=== PATIENT | male | born 1955 | race Caucasian/White ===

== ENCOUNTER 2022-01-27 14:19 | Observation (INO) ==
[2022-01-27] MEDS ORDERED: ONDANSETRON INJ 2 MG/ML 2 ML VIAL IV STA (15:42)
[2022-01-27] MEDS ORDERED: HYDROmorphone INJ 0.5 MG/0.5 ML SYR IV STA (15:42)
--- NOTE | 2022-01-27 15:46 | Emergency Department Note ---
History of Present Illness General Chief complaint: Back Injury/Pain Stated complaint: BACK PAIN Time Seen by Provider: 01/27/22 15:29 History of Present Illness Maximum Pain Intensity: 10 This is a 66-year-old male that presents to the emergency department via private vehicle with complaints of "low back pain". Patient notes progressively worsening low back pain to the point where now he is not able to manage it at home. He notes that he follows with pain management and is prescribed hydrocodone. He last had this medication just prior to arrival. He notes that even simple tasks such as showering or going to the grocery store has been quite difficult for him secondary to low back pain. Patient does note some sensation of leg weakness but this is not new. He points to the low back as a location of pain that radiates into the bilateral hips. He also notes it radiates into the lower abdomen. Patient denies any fevers, chills, nausea or vomiting. Patient does note that he currently is on Plavix. He denies any recent trauma or injury. Patient notes pain is worse with certain movements such as twisting or bending. He also notes that he had some bright red blood per rectum as of recent and also dark tarry stools a few days ago that were foul-smelling. He notes hemorrhoids. Home Medications Medication Instructions Recorded Confirmed Type clopidogrel 75 mg tablet (Plavix) 75 mg PO DAILY 10/28/17 01/27/22 History lisinopril 40 mg tablet 40 mg PO DAILY 10/28/17 01/27/22 History sennosides 8.6 mg tablet (senna) 8.6 mg PO BID PRN Constipation 10/28/17 01/27/22 History tamsulosin 0.4 mg capsule (Flomax) 0.4 mg PO DAILY 05/04/18 01/27/22 History clonazepam 1 mg tablet (Klonopin) 1 mg PO TID 11/08/18 01/27/22 History duloxetine 60 mg capsule,delayed 60 mg PO DAILY 06/21/19 01/27/22 History release (Cymbalta) trazodone 150 mg tablet 75 mg PO HS 06/21/19 01/27/22 History rosuvastatin 20 mg tablet (Crestor) 20 mg PO HS 12/01/19 01/27/22 History amlodipine 10 mg tablet 10 mg PO DAILY 01/27/22 01/27/22 History carvedilol 25 mg tablet 25 mg PO BID 01/27/22 01/27/22 History gabapentin 600 mg tablet 900 mg PO BID 01/27/22 01/27/22 History hydrocodone 5 mg-acetaminophen 325 1 tab PO TID 01/27/22 01/27/22 History mg tablet pantoprazole 40 mg tablet,delayed 40 mg PO DAILY 01/27/22 01/27/22 History release topiramate 25 mg tablet 25 mg PO TID 01/27/22 01/27/22 History Allergies Allergy/AdvReac Type Severity Reaction Status Date / Time aspirin AdvReac Mild UPSET Verified 01/03/22 13:20 STOMACH Past Med/Surg History Medical History (Updated 01/28/22 @ 07:54 by Shahzad Rojas PA-C) CAD (coronary artery disease) S/p previous stenting, details unknown Cervical disc disorder Cervical post-laminectomy syndrome Cervical radiculopathy Chronic hip pain after total replacement of right hip joint Dyslipidemia Dystonic movements HTN (hypertension) Lumbar radiculopathy Opioid dependence Osteoarthritis Painful total knee replacement (08/22/13) Rib fracture Sleep apnea Surgical History History of back surgery History of total right hip arthroplasty History of total right knee replacement (TKR) Hx of fusion of cervical spine Family History Mother Diabetes Social History Smoking Status: Never smoker Second Hand Exposure: No; Do You Dip or Chew Tobacco: Yes; Tobacco Cessation Education Requested by Patient: No Hx Alcohol Use: No Hx Substance Use: Yes Prescribed Medications: Marijuana Last Used Substance: Hours (ago) Substance Use Type Other:: Patient states he has a medical marijuana card Preferred Language: Colombian Communication Ability: Effective Visual Impairment: No Limitations Hearing Ability: Normal Mid Level Provider Required: No Beliefs That Will Affect Care: None marital status: Single Current Living Situation: Family Current Living Situation Comment: Lives with brother current occupational status: retired Other Information That Helps Us Care for You: No Feels Safe at Home: Yes Safety Concerns: Feels Safe At This Time Assistive Devices: Glasses Assistive Devices Comment: glasses at home at this time Review of Systems A total of 10 systems reviewed and were otherwise negative Physical Exam Vital Signs Vital Signs - 24 hr 01/27/22 14:42 01/27/22 15:44 Temperature 36.8 C Temperature Source Temporal Artery Scan Pulse Rate 82 Pulse Rhythm Regular Respiratory Rate 20 Respiratory Effort / Characteristics Non-Labored Spontaneous Respiratory Depth Normal Blood Pressure 156/85 H Blood Pressure Mean 108 Pulse Oximetry 97 98 Oxygen Delivery Method Room Air Room Air Sepsis Recent Fever Within 48 Hours No Sepsis New/Unexplained Change in Mental Status No Sepsis Action Taken by Nursing No Action Required VITAL SIGNS - Vital signs and nursing notes were reviewed. Stable and afebrile. GENERAL -66-year-old male appearing his stated age who is in no acute distress. Communicates well with provider and answers questions appropriately. SKIN - Without rashes. No meningeal or petechial rash. HEAD - NC/AT. EYES - PERRL with EOMI bilaterally. Sclera anicteric. EARS - No deformities of external structures noted on gross examination bilaterally. NOSE - Midline and without cyanosis. No epistaxis or purulent drainage noted. MOUTH/OROPHARYNX - Without perioral cyanosis. NECK - Neck with FROM. No nuchal rigidity. LUNGS - Chest wall symmetric without accessory muscle use, intercostals retractions, or central cyanosis. Normal vesicular breath sounds CTA B/L. No wheezes, rales, or rhonchi appreciated. CARDIAC - RRR with S1/S2. No murmur, rubs, or gallops appreciated. ABDOMEN - Abdominal contour normal without pulsations or visible masses. BS normoactive all four quadrants. Right lower quadrant/flank tenderness to palpation. No palpable masses, hepatosplenomegaly, or ascites noted. L-SPINEno reproducible tenderness over the L-spine. EXTREMITIES - No clubbing or peripheral cyanosis. No pretibial edema present. +5/5 strength noted in UE/LE bilaterally. NEUROLOGIC - Cranial nerves II through XII grossly intact. PSYCH - A&Ox3 and cooperates fully with examiner. Pt is very pleasant and interacts well with examiner. RECTAL: Consent was obtained. Male hospital medicine director at bedside. External hemorrhoids noted. No bleeding. No bright red blood. No dark tarry stools. Internal portion of examination normal. Hemoccult testing negative. Course Administered Medications Acetaminophen (Acetaminophen 500 Mg Tab) 1,000 mg PO Q8H MARIO Stop: 02/26/22 22:13 Last Admin: 01/28/22 06:37 Dose: 1,000 mg Documented By: Admin: 01/27/22 23:08 Dose: 1,000 mg Documented By: JEFRY Carvedilol (Carvedilol 25 Mg Tab) 25 mg PO BID MARIO Stop: 02/26/22 22:13 Last Admin: 01/27/22 23:07 Dose: 25 mg Documented By: JEFRY Clonazepam (Clonazepam 1 Mg Tab) 1 mg PO TID MARIO Stop: 02/26/22 22:13 Last Admin: 01/27/22 23:10 Dose: 1 mg Documented By: JEFRY Gabapentin (Gabapentin 300 Mg Cap) 900 mg PO BID MARIO Stop: 02/26/22 22:13 Last Admin: 01/27/22 23:08 Dose: 900 mg Documented By: JEFRY Pantoprazole Sodium 40 mg/ (Syringe) 10 mls @ 5 mls/min IV BID MARIO Stop: 02/26/22 22:13 Last Admin: 01/27/22 23:08 Dose: 5 mls/min Documented By: JEFRY Morphine Sulfate (Morphine Sulfate 4 Mg/Ml 1 Ml Carp\\Vial) 4 mg IV Q6H PRN PRN Reason: severe pain Stop: 02/10/22 22:13 Last Admin: 01/28/22 00:08 Dose: 4 mg Documented By: JEFRY Rosuvastatin Calcium (Rosuvastatin Calcium 20 Mg Tab) 20 mg PO HS MARIO Stop: 02/26/22 22:13 Last Admin: 01/27/22 23:07 Dose: 20 mg Documented By: JEFRY Topiramate (Topiramate 25 Mg Tab) 25 mg PO TID MARIO Stop: 02/26/22 22:13 Last Admin: 01/27/22 23:08 Dose: 25 mg Documented By: JEFRY Trazodone HCl (Trazodone Hcl 50 Mg Tab) 75 mg PO HS MARIO Stop: 02/26/22 22:13 Last Admin: 01/27/22 23:09 Dose: 75 mg Documented By: JEFRY Discontinued Medications Acetaminophen (Acetaminophen 325 Mg Tab) 650 mg PO NOW STA Stop: 01/27/22 17:52 Last Admin: 01/27/22 18:17 Dose: 650 mg Documented By: Gadobutrol (Gadobutrol 65ml Vial) 9 ml IV ONCE ONE Stop: 01/27/22 23:54 Last Admin: 01/27/22 23:53 Dose: 9 ml Documented By: CAMILA Hydromorphone HCl (Hydromorphone Inj 0.5 Mg/0.5 Ml Syr) 0.5 mg IV NOW STA Stop: 01/27/22 15:43 Last Admin: 01/27/22 16:14 Dose: 0.5 mg Documented By: ENEIDA Ioversol (Optiray 350 100ml) 78 ml IV ONCE ONE Stop: 01/27/22 17:21 Last Admin: 01/27/22 18:29 Dose: Not Given Documented By: ENEIDA Lidocaine (Lidocaine 5% 1 Patch) 1 patch TD NOW STA Stop: 01/27/22 17:52 Last Admin: 01/27/22 18:17 Dose: 1 patch Documented By: ENEIDA Miscellaneous (Remove Lidoderm Patch) 1 each N/A DAILY@2100 MARIO Stop: 02/26/22 20:59 Last Admin: 01/28/22 07:02 Dose: Not Given Documented By: MELODIE Ondansetron HCl (Ondansetron Inj 2 Mg/Ml 2 Ml Vial) 4 mg IV NOW STA Stop: 01/27/22 15:43 Last Admin: 01/27/22 16:14 Dose: 4 mg Documented By: ENEIDA Medical Decision Making Laboratory Data Result diagrams: 01/28/22 05:57 01/28/22 05:57 Lab Results 01/27/22 01/27/22 01/27/22 Range/Units 16:13 16:13 16:13 WBC 7.04 (4.8-10.8) K/ul RBC 4.37 L (4.63-6.08) M/uL Hgb 14.7 (14.0-18.0) g/dl Hct 40.2 (40.1-51.0) % MCV 92.0 (80.0-100.0) fL MCH 33.6 (25.0-34.0) pg MCHC 36.6 H (32.0-36.0) g/dL RDW Std Deviation 42.8 (36.4-46.3) fL RDW Coeff of Hanh 12.9 (11.5-14.5) % Plt Count 142 (130-400) K/uL MPV 9.1 L (9.4-12.4) fL Immature Gran % (Auto) 3.8 % Neut % (Auto) 65.4 % Lymph % (Auto) 21.2 % [place] % (Auto) 7.1 % Eos % (Auto) 1.8 % Baso % (Auto) 0.7 % Neut # (Auto) 4.60 (1.4-6.5) K/uL Lymph # (Auto) 1.49 (1.2-3.4) K/uL [place] # (Auto) 0.50 (0.24-0.82) K/uL Eos # (Auto) 0.13 (0-0.50) K/uL Baso # (Auto) 0.05 (0-0.2) K/uL Immature Gran # (Auto) 0.27 H (0.00-0.02) K/uL PT 10.3 (9.0-12.0) Seconds INR 1.0 (0.9-1.1) APTT 26.8 (21.0-31.0) Seconds PTT Ratio 1.0 Sodium 140 (136-145) mmol/L Potassium 3.8 (3.5-5.1) mmol/L Chloride 109 H (98-107) mmol/L Carbon Dioxide 26 (21-32) mmol/L Anion Gap 5 (3-11) BUN 13 (6-23) mg/dl Creatinine 0.89 (0.6-1.4) mg/dl Est Cr Clr Drug Dosing Not Reportable Est GFR ( Amer) 104.0 ml/min Est GFR (Non-Af Amer) 89.7 ml/min BUN/Creatinine Ratio 14.6 (10-20) Glucose 113 H (70-99(Fasting)) mg/dl Calcium 8.5 (8.5-10.1) mg/dl Total Bilirubin 0.6 (0.2-1.0) mg/dl AST 19 (13-39) U/L ALT 18 (7-52) U/L Alkaline Phosphatase 59 (34-104) U/L Total Protein 6.6 (6.0-8.3) gm/dl Albumin 4.2 (3.4-5.0) gm/dl Globulin 2.4 L (2.5-4.0) gm/dl Albumin/Globulin Ratio 1.8 (0.9-2) Lipase 23 (11-82) U/L Imaging Data Radiologist's Impression: Abdomen/Pelvis CT 01/27/22 15:42 CT lumbar spine w con, CT abd pelvis IV con only HISTORY: 66 years-old Male low back pain, into hips. Rectal bleeding acute abdominal trauma back pain with rectal bleeding COMPARISON: Lumbar spine radiographs 11/27/2021 TECHNIQUE: Multiple axial CT images of the abdomen, pelvis and lumbar spine were obtained following the intravenous administration of 78 mL Optiray 350. A dose lowering technique was used consistent with the principals of KEVIN. FINDINGS: CT LUMBAR SPINE: L5 laminectomy. Posterior interbody birgit and screw fusion with discectomy at L5- S1. The hardware appears intact. Moderate to advanced multilevel anterior end plate predominant spondylitic spurring with mostly mild multilevel vertebral disc space narrowing and moderate facet arthrosis. No acute fracture or subluxation identified. No paravertebral edema identified. Multilevel posterior annular disc bulging. There is at least moderate central canal stenosis at L3-L4 and L4-L5. CT ABDOMEN/PELVIS: The lung bases are generally clear. Coronary artery calcifications. No pneumatosis or pneumoperitoneum. Unremarkable spleen, mildly atrophic pancreas and adrenal glands which demonstrate mild fatty replacement. The gallbladder is within normal limits. Hepatic steatosis. Patency of the hepatic and portal veins. There is mild nonspecific bilateral perinephric stranding. Mild cortical thinning of the kidneys. No hydronephrosis. Prostamegaly. Small fat filled inguinal hernias. Mild urinary bladder wall thickening with partial distention. Atherosclerosis of the aorta without aneurysm. No lymphadenopathy identified. Small duodenal diverticulum. No bowel obstruction or bowel wall thickening. Colonic diverticulosis without acute diverticulitis. Normal appendix. Unrema rkable soft tissues. Right hip arthroplasty. Fusion hardware at L5-S1. Healed chronic anterior rib fractures. No acute fracture identified. IMPRESSION: 1. No acute intra-abdominal or intrapelvic abnormality. 2. No bowel obstruction or bowel wall thickening. Normal appendix. 3. Colonic diverticulosis. 4. No acute fracture identified. 5. Postoperative and degenerative changes of the lumbar spine as above. ACT 112: Negative or not required by law. The above report was generated using voice recognition software. It may contain grammatical, syntax or spelling errors. Electronically signed by: Reggie Talavera M.D. 01/27/2022 5:[address] 01/27/22 15:42 CT lumbar spine w con, CT abd pelvis IV con only HISTORY: 66 years-old Male low back pain, into hips. Rectal bleeding acute abdominal trauma back pain with rectal bleeding COMPARISON: Lumbar spine radiographs 11/27/2021 TECHNIQUE: Multiple axial CT images of the abdomen, pelvis and lumbar spine were obtained following the intravenous administration of 78 mL Optiray 350. A dose lowering technique was used consistent with the principals of KEVIN. FINDINGS: CT LUMBAR SPINE: L5 laminectomy. Posterior interbody birgit and screw fusion with discectomy at L5- S1. The hardware appears intact. Moderate to advanced multilevel anterior endplate predominant spondylitic spurring with mostly mild multilevel vertebral disc space narrowing and moderate facet arthrosis. No acute fracture or subluxation identified. No paravertebral edema identified. Multilevel posterior annular disc bulging. There is at least moderate central canal stenosis at L3-L4 and L4-L5. CT ABDOMEN/PELVIS: The lung bases are generally clear. Coronary artery calcifications. No pneumatosis or pneumoperitoneum. Unremarkable spleen, mildly atrophic pancreas and adrenal glands which demonstrate mild fatty replacement. The gallbladder is within normal limits. Hepatic steatosis. Patency of the hepatic and portal veins. There is mild nonspecific bilateral perinephric stranding. Mild cortical thinni ng of the kidneys. No hydronephrosis. Prostamegaly. Small fat filled inguinal hernias. Mild urinary bladder wall thickening with partial distention. Atherosclerosis of the aorta without aneurysm. No lymphadenopathy identified. Small duodenal diverticulum. No bowel obstruction or bowel wall thickening. Colonic diverticulosis without acute diverticulitis. Normal appendix. U nremarkable soft tissues. Right hip arthroplasty. Fusion hardware at L5-S1. Healed chronic anterior rib fractures. No acute fracture identified. IMPRESSION: 1. No acute intra-abdominal or intrapelvic abnormality. 2. No bowel obstruction or bowel wall thickening. Normal appendix. 3. Colonic diverticulosis. 4. No acute fracture identified. 5. Postoperative and degenerative changes of the lumbar spine as above. ACT 112: Negative or not required by law. The above report was generated using voice recognition software. It may contain grammatical, syntax or spelling errors. Electronically signed by: Reggie Talavera M.D. 01/27/2022 5:38 PM MDM Narrative Patient was seen and evaluated as above in room D07. Review was performed of nursing notes and vital signs. I did review pertinent previous visits and patient history. After obtaining a thorough history and physical examination the above work up was performed. Patient presents to us today with worsening low back pain. He clinically appears well but is very slow to move in any direction that involves moving his back/bending/twisting noting discomfort. His vital signs are stable. Patient also notes right red blood per rectum over the past day or so with black tarry stools a few days ago that were foul-smelling. Options of care were discussed with the patient. IV access was established. Labs were drawn. Labs reveal no leukocytosis or concerning anemia. A rectal examination was performed after obtaining consent as the patient is on Plavix and notes bright red blood per rectum. Some external hemorrhoids were noted that were nonbleeding. No bright red blood. No evidence of blood by Hemoccult testing. His metabolic panel reveals no emergent process. A CT scan was obtained of the abdomen pelvis noting his low back pain that radiates into the abdomen with associated low back pain. I do not believe that an MRI of the L- spine at this time would be of benefit from an emergent standpoint. CT imaging results as above. This was essentially negative from an emergent standpoint however with the patient having ongoing worsening back pain to the point where performing ADLs is quite difficult despite at home therapy with medication I do believe that further evaluation and management in the inpatient setting is warranted. Case discussed with the hospitalist service. Please refer to further documentation regarding his stay. Patient happy with plan of care. GCS: 15 In the evaluation and treatment of this patient the following differential diagnoses were entertained: AAA, lumbar radiculopathy, dissection, GI bleeding, UTI, pyelonephritis, bowel obstruction, infectious etiology, among others Impression & Plan Intractable back pain Discharge Plan Visit Data Chief Complaint: Back Injury/Pain Stated Complaint: BACK PAIN ED Provider: Brian Vazquez ED Midlevel Provider: Shahzad Rojas Discharge Problem: Intractable back pain Patient Disposition: Admitted As Inpatient Condition: Good Discharge Instructions Interventions: ED Discharge Assessment Last Done: 01/27/22 21:40
[2022-01-27 16:31] LABS: Basophils # (auto) 0.05 K/uL (0-0.2); Basophils % (auto) 0.7 %; Eosinophils # (auto) 0.13 K/uL (0-0.50); Eosinophils % (auto) 1.8 %; Hematocrit (blood only) 40.2 % (40.1-51.0); Hemoglobin 14.7 g/dl (14.0-18.0); Immature Granulocytes # (auto) 0.27 K/uL (0.00-0.02); Immature Granulocytes % (auto) 3.8 %; Lymphocytes # (auto) 1.49 K/uL (1.2-3.4); Lymphocytes % (auto) 21.2 %; Mean Corpuscular Hemoglobin 33.6 pg (25.0-34.0); Mean Corpuscular Hgb Conc 36.6 g/dL (32.0-36.0); Mean Platelet Volume 9.1 fL (9.4-12.4); Monocytes % (auto) 7.1 %; Neutrophils % (auto) 65.4 %; Platelet Count 142 K/uL (130-400); RDW Coefficient of Variation 12.9 % (11.5-14.5); RDW Standard Deviation 42.8 fL (36.4-46.3); Red Blood Count 4.37 M/uL (4.63-6.08); White Blood Count 7.04 K/ul (4.8-10.8)
[2022-01-27 16:45] LABS: Partial Thromboplastin Time 26.8 Seconds (21.0-31.0); Prothrombin Time 10.3 Seconds (9.0-12.0)
[2022-01-27 16:55] LABS: Alanine Aminotransferase 18 U/L (7-52); Albumin Globulin Ratio 1.8 (0.9-2); Albumin Level 4.2 gm/dl (3.4-5.0); Alkaline Phosphatase 59 U/L (34-104); Anion Gap 5 (3-11); Aspartate Aminotransferase 19 U/L (13-39); BUN Creatinine Ratio 14.6 (10-20); Bilirubin,Total 0.6 mg/dl (0.2-1.0); Blood Urea Nitrogen 13 mg/dl (6-23); Calcium 8.5 mg/dl (8.5-10.1); Carbon Dioxide 26 mmol/L (21-32); Chloride 109 mmol/L (98-107); Est GFR (Non-African American) 89.7 ml/min; Globulin 2.4 gm/dl (2.5-4.0); Glucose 113 mg/dl (70-99(Fasting)); Lipase 23 U/L (11-82); Potassium 3.8 mmol/L (3.5-5.1); Sodium 140 mmol/L (136-145); Total Protein 6.6 gm/dl (6.0-8.3)
[2022-01-27] MEDS ORDERED: OPTIRAY 350 100ml IV ONE (17:20)
--- NOTE | 2022-01-27 17:40 | CT Scan Report ---
CT lumbar spine w con, CT abd pelvis IV con only HISTORY: 66 years-old Male low back pain, into hips. Rectal bleeding acute abdominal trauma back vidal n with rectal bleeding COMPARISON: Lumbar spine radiographs 11/27/2021 TECHNIQUE: Multiple axial CT images of the abdomen, pelvis and lumbar spine were obtained following t he intravenous administration of 78 mL Optiray 350. A dose lowering technique was used consistent wit h the principals amna BROWN. FINDINGS: CT LUMBAR SPINE: L5 laminectomy. Posterior interbody birgit and screw fusion with discectomy at L5-S1. The hardware appea rs intact. Moderate to advanced multilevel anterior endplate predominant spondylitic spurring with mo stly mild multilevel vertebral disc space narrowing and moderate facet arthrosis. No acute fracture o r subluxation identified. No paravertebral edema identified. Multilevel posterior annular disc bulgin g. There is at least moderate central canal stenosis at L3-L4 and L4-L5. CT ABDOMEN/PELVIS: The lung bases are generally clear. Coronary artery calcifications. No pneumatosis or pneumoperitoneu m. Unremarkable spleen, mildly atrophic pancreas and adrenal glands which demonstrate mild fatty repl acement. The gallbladder is within normal limits. Hepatic steatosis. Patency of the hepatic and [place] l veins. There is mild nonspecific bilateral perinephric stranding. Mild cortical thinning of the kidneys. No hydronephrosis. Prostamegaly. Small fat filled inguinal hernias. Mild urinary bladder wall thickening with partial distention. Atherosclerosis of the aorta without aneurysm. No lymphadenopathy identifie d. Small duodenal diverticulum. No bowel obstruction or bowel wall thickening. Colonic diverticulosis wi thout acute diverticulitis. Normal appendix. Unremarkable soft tissues. Right hip arthroplasty. Fusio n hardware at L5-S1. Healed chronic anterior rib fractures. No acute fracture identified. IMPRESSION: 1. No acute intra-abdominal or intrapelvic abnormality. 2. No bowel obstruction or bowel wall thickening. Normal appendix. 3. Colonic diverticulosis. 4. No acute fracture identified. 5. Postoperative and degenerative changes of the lumbar spine as above. ACT 112: Negative or not required by law. The above report was generated using voice recognition software. It may contain grammatical, syntax o r spelling errors. Electronically signed by: Reggie Talavera M.D. 01/27/2022 5:38 PM
[2022-01-27] MEDS ORDERED: LIDOCAINE 5% 1 PATCH TD STA (17:51)
[2022-01-27] MEDS ORDERED: ACETAMINOPHEN 325 MG TAB PO STA (17:51)
--- NOTE | 2022-01-27 21:05 | History & Physical Report ---
Date of Service January 27, 2022 Assessment & Plan (1) Intractable back pain: Plan: Admit to [facility] Patient presenting from home with reports of worsening back pain over the past 3 weeks. Patient with history of prior neck and back surgeries with residual chronic pain syndrome. Patient follows closely with the pain clinic. In the ED, CT lumbar spine shows L5 laminectomy. Posterior interbody birgit and screw fusion with discectomy at L5-S1. The hardware appears intact. Moderate to advanced multilevel anterior endplate predominant spondylitic spurring with mostly mild multilevel vertebral disc space narrowing and moderate facet arthrosis. No acute fracture or subluxation identified. No paravertebral edema identified. Multilevel posterior annular disc bulging. There is at least moderate central canal stenosis at L3-L4 and L4-L5. Pain control with scheduled Tylenol, Lidoderm patch, as needed oxycodone and morphine for breakthrough pain. Continue home dose gabapentin. Lumbar spine MRI Spine Ortho consult Pain management consult (2) GI bleeding: Plan: Patient reports intermittent episodes of black stools over the past 3 months. 3 days ago, patient reports passing dark red blood with clots. No further episodes of bleeding since. Patient is on clopidogrel for history of CAD. Hgb stable 14.7 EGD in 2017 unremarkable, last colonoscopy in 2018 diverticulosis in the sigmoid colon. Patient due for repeat colonoscopy in 2022. Due to reports of black stools, will start IV PPI BID Hold clopidogrel GI consult (3) CAD (coronary artery disease): Plan: Remote history of prior stenting, details unknown Holding clopidogrel due to possible GI bleeding, continue statin and beta- shamar (4) HTN (hypertension): Plan: BP controlled, continue amlodipine, carvedilol DVT prophylaxis SCDs due to possible GI bleeding History of Present Illness Chief Complaint: Back pain Primary Care Provider: Noy Gaxiola MD 66-year-old male with PMH HLD, CAD s/p previous stenting (details unknown), sleep apnea not on CPAP, HTN, s/p previous back and neck surgeries with chronic back pain followed by the pain clinic, and other problems listed below who presents to the ED for evaluation of intractable back pain. Patient reports increasing lower back pain over the past 3 weeks. Patient reports he is followed by the pain clinic and takes hydrocodone/acetaminophen. Patient reports that pain is typically controlled with the hydrocodone however recently he has not been able to get any relief. Patient reports chronic lower extremity weakness which is unchanged from baseline. Patient denies any bowel or bladder dysfunction. Patient incidentally reports episodes of black stools over the past few months. 3 days ago, patient reports passing dark red blood with clots. No further bleeding since. Patient denies chest pain and shortness of breath. No lightheadedness, dizziness, diaphoresis, syncopal events. In the ED, CT lumbar spine shows L5 laminectomy. Posterior interbody ibrgit and screw fusion with discectomy at L5-S1. The hardware appears intact. Moderate to advanced multilevel anterior endplate predominant spondylitic spurring with mostly mild multilevel vertebral disc space narrowing and moderate facet arthrosis. No acute fracture or subluxation identified. No paravertebral edema identified. Multilevel posterior annular disc bulging. There is at least moderate central canal stenosis at L3-L4 and L4-L5. CT ABD/pelvis unremarkable for acute findings. Labs are unremarkable. Patient was given p.o. Tylenol, IV hydromorphone, Lidoderm patch, IV Zofran. Allergies Allergy/AdvReac Type Severity Reaction Status Date / Time aspirin AdvReac Mild UPSET Verified 01/03/22 13:20 STOMACH Home Medications Medication Instructions Recorded Confirmed Type clopidogrel 75 mg tablet (Plavix) 75 mg PO DAILY 10/28/17 01/27/22 History lisinopril 40 mg tablet 40 mg PO DAILY 10/28/17 01/27/22 History sennosides 8.6 mg tablet (senna) 8.6 mg PO BID PRN Constipation 10/28/17 01/27/22 History tamsulosin 0.4 mg capsule (Flomax) 0.4 mg PO DAILY 05/04/18 01/27/22 History clonazepam 1 mg tablet (Klonopin) 1 mg PO TID 11/08/18 01/27/22 History duloxetine 60 mg capsule,delayed 60 mg PO DAILY 06/21/19 01/27/22 History release (Cymbalta) trazodone 150 mg tablet 75 mg PO HS 06/21/19 01/27/22 History rosuvastatin 20 mg tablet (Crestor) 20 mg PO HS 12/01/19 01/27/22 History amlodipine 10 mg tablet 10 mg PO DAILY 01/27/22 01/27/22 History carvedilol 25 mg tablet 25 mg PO BID 01/27/22 01/27/22 History gabapentin 600 mg tablet 900 mg PO BID 01/27/22 01/27/22 History hydrocodone 5 mg-acetaminophen 325 1 tab PO TID 01/27/22 01/27/22 History mg tablet pantoprazole 40 mg tablet,delayed 40 mg PO DAILY 01/27/22 01/27/22 History release topiramate 25 mg tablet 25 mg PO TID 01/27/22 01/27/22 History Past Med/Surg History Medical History (Updated 01/27/22 @ 21:07 by JULY Marrero) CAD (coronary artery disease) S/p previous stenting, details unknown Cervical disc disorder Cervical post-laminectomy syndrome Cervical radiculopathy Chronic hip pain after total replacement of right hip joint Dyslipidemia Dystonic movements HTN (hypertension) Lumbar radiculopathy Opioid dependence Osteoarthritis Painful total knee replacement (08/22/13) Rib fracture Sleep apnea Surgical History History of back surgery History of total right hip arthroplasty History of total right knee replacement (TKR) Hx of fusion of cervical spine Family History Mother Diabetes Social History Smoking Status: Never smoker Hx Alcohol Use: Yes Alcohol type: hard liquor Hx Substance Use: Yes Prescribed Medications: Marijuana Preferred Language: Wolof Visual Impairment: No Limitations Hearing Ability: Normal marital status: Single Current Living Situation: Family Current Living Situation Comment: brother lives with him current occupational status: retired Feels Safe at Home: Yes Review of Systems Review of Systems: ROS per HPI, all other systems reviewed and negative Physical Exam Constitutional: WD/WN, vitals as above Eyes: PERRL, conjunctivae normal, anicteric sclerae ENMT: external ear and nose normal, oropharynx normal Respiratory: normal respiratory effort, lungs clear to auscultation Cardiovascular: Rate/Rhythm: regular rate and regular rhythm Vessels: normal peripheral pulses Extremities: no edema Gastrointestinal (Abdomen): normal bowel sounds, soft, nontender, no hepatosplenomegaly Musculoskeletal: Pedal pushes and pulls strong bilaterally, patient reports increased back pain with lifting of right leg Skin: no rashes, warm and dry Neurologic: PERRL, EOMI, accommodation nl, no face palsy, no dysarthria Psychiatric: A+Ox3, euthymic affect Results & Data Results & Data ([facility]) Vital Signs (Past 12 Hours) Vital Signs Temp Pulse Pulse Resp BP BP Pulse Ox 01/27/22 20:00 66 16 146/85 H 95 01/27/22 19:40 68 18 146/85 H 01/27/22 15:44 98 01/27/22 14:42 36.8 C 82 20 156/85 H 97 O2 Del Method 01/27/22 20:00 Room Air 01/27/22 19:40 01/27/22 15:44 Room Air 01/27/22 14:42 Room Air Laboratory Results Short CBC 01/27/22 Range/Units 16:13 WBC 7.04 (4.8-10.8) K/ul Hgb 14.7 (14.0-18.0) g/dl Hct 40.2 (40.1-51.0) % Plt Count 142 (130-400) K/uL BMP 01/27/22 16:13 Sodium 140 Potassium 3.8 Chloride 109 H Carbon Dioxide 26 BUN 13 Creatinine 0.89 Glucose 113 H Calcium 8.5 Liver Function 01/27/22 Range/Units 16:13 Total Bilirubin 0.6 (0.2-1.0) mg/dl AST 19 (13-39) U/L ALT 18 (7-52) U/L Alkaline Phosphatase 59 (34-104) U/L Albumin 4.2 (3.4-5.0) gm/dl Diagnostic Findings Abdomen/Pelvis CT 01/27/22 15:42 CT lumbar spine w con, CT abd pelvis IV con only HISTORY: 66 years-old Male low back pain, into hips. Rectal bleeding acute abdominal trauma back pain with rectal bleeding COMPARISON: Lumbar spine radiographs 11/27/2021 TECHNIQUE: Multiple axial CT images of the abdomen, pelvis and lumbar spine were obtained following the intravenous administration of 78 mL Optiray 350. A dose lowering technique was used consistent with the principals of ALARA. FINDINGS: CT LUMBAR SPINE: L5 laminectomy. Posterior interbody birgit and screw fusion with discectomy at L5- S1. The hardware appears intact. Moderate to advanced multilevel anterior endplate predominant spondylitic spurring with mostly mild multilevel vertebral disc space narrowing and moderate facet arthrosis. No acute fracture or subluxation identified. No paravertebral edema identified. Multilevel posterior annular disc bulging. There is at least moderate central canal stenosis at L3-L4 and L4-L5. CT ABDOMEN/PELVIS: The lung bases are generally clear. Coronary artery calcifications. No pneumatosis or pneumoperitoneum. Unremarkable spleen, mildly atrophic pancreas and adrenal glands which demonstrate mild fatty replacement. The gallbladder is within normal limits. Hepatic steatosis. Patency of the hepatic and portal veins. There is mild nonspecific bilateral perinephric stranding. Mild cortical thinning of the kidneys. No hydronephrosis. Prostamegaly. Small fat filled inguinal hernias. Mild urinary bladder wall thickening with partial distention. Atherosclerosis of the aorta without aneurysm. No lymphadenopathy identified. Small duodenal diverticulum. No bowel obstruction or bowel wall thickening. Colonic diverticulosis without acute diverticulitis. Normal appendix. Unremarkable soft tissues. Right hip arthroplasty. Fusion hardware at L5-S1. Healed chronic anterior rib fractures. No acute fracture identified. IMPRESSION: 1. No acute intra-abdominal or intrapelvic abnormality. 2. No bowel obstruction or bowel wall thickening. Normal appendix. 3. Colonic diverticulosis. 4. No acute fracture identified. 5. Postoperative and degenerative changes of the lumbar spine as above. ACT 112: Negative or not required by law. The above report was generated using voice recognition software. It may contain grammatical, syntax or spelling errors. Electronically signed by: Reggie Talavera M.D. 01/27/2022 5:[address] 01/27/22 15:42 CT lumbar spine w con, CT abd pelvis IV con only HISTORY: 66 years-old Male low back pain, into hips. Rectal bleeding acute abdominal trauma back pain with rectal bleeding COMPARISON: Lumbar spine radiographs 11/27/2021 TECHNIQUE: Multiple axial CT images of the abdomen, pelvis and lumbar spine were obtained following the intravenous administration of 78 mL Optiray 350. A dose lowering technique was used consistent with the principals of ALARA. FINDINGS: CT LUMBAR SPINE: L5 laminectomy. Posterior interbody birgit and screw fusion with discectomy at L5- S1. The hardware appears intact. Moderate to advanced multilevel anterior endplate predominant spondylitic spurring with mostly mild multilevel vertebral disc space narrowing and moderate facet arthrosis. No acute fracture or subluxation identified. No paravertebral edema identified. Multilevel posterior annular disc bulging. There is at least moderate central canal stenosis at L3-L4 and L4-L5. CT ABDOMEN/PELVIS: The lung bases are generally clear. Coronary artery calcifications. No pneumatosis or pneumoperitoneum. Unremarkable spleen, mildly atrophic pancreas and adrenal glands which demonstrate mild fatty replacement. The gallbladder is within normal limits. Hepatic steatosis. Patency of the hepatic and portal veins. There is mild nonspecific bilateral perinephric stranding. Mild cortical thinning of the kidneys. No hydronephrosis. Prostamegaly. Small fat filled inguinal hernias. Mild urinary bladder wall thickening with partial distention. Atherosclerosis of the aorta without aneurysm. No lymphadenopathy identified. Small duodenal diverticulum. No bowel obstruction or bowel wall thickening. Colonic diverticulosis without acute diverticulitis. Normal appendix. Unremarkable soft tissues. Right hip arthroplasty. Fusion hardware at L5-S1. Healed chronic anterior rib fractures. No acute fracture identified. IMPRESSION: 1. No acute intra-abdominal or intrapelvic abnormality. 2. No bowel obstruction or bowel wall thickening. Normal appendix. 3. Colonic diverticulosis. 4. No acute fracture identified. 5. Postoperative and degenerative changes of the lumbar spine as above. ACT 112: Negative or not required by law. The above report was generated using voice recognition software. It may contain grammatical, syntax or spelling errors. Electronically signed by: Reggie Talavera M.D. 01/27/2022 5:38 PM Code Status & VTE Plan VTE Prophylaxis Plan VTE Prophylaxis will be ordered: Yes Supervising Physician Co-Signing Physician Notes Patient is a 65-year-old male with multiple comorbidities presents with history of intractable back pain, which radiates across his abdomen, associated with history of fall. Patient had multiple back surgeries in the past. He states having ambulatory dysfunction secondary to back pain. Please review HPI for complete details of presentation. He also states having black stools with some clots over the past 3 days. He admits to have hemorrhoids. He is on Plavix currently. Blood work reviewed. CT lumbar spine, abdomen showed no acute intra-abdominal or intrapelvic abnormality. No signs of bowel obstruction or bowel wall thickening. No acute fractures identified. Postoperative and degenerative changes of the lumbar spine noted. On exam patient is obese, no apparent distress, normocephalic atraumatic, EOMI, normal breath sounds, clear to auscultation, S1-S2, no murmur, no pedal edema, abdomen firm, mildly distended, normal bowel sounds, alert, awake, oriented, grossly no focal deficits. Patient is admitted for management of intractable back pain, melena. We will get MRI lumbar spine. Ortho consulted. PT OT eval. Fall precautions. Check fecal occult. Hold Plavix. Agree with GI consult, PPI. Monitor H&H and transfuse as needed. I personally reviewed the record. Patient is interviewed and examined at bedside. Patient's care is coordinated with Cassi Erazo CLASSIFIED AD TAKER. Please refer to the documentation above for details of patient's presentation and for discussion of other issues.
[2022-01-27] MEDS ORDERED: SODIUM CHLORIDE 0.9% 250 ML IV PRN (22:14)
[2022-01-27] MEDS ORDERED: MoRPHine SULFATE 4 MG/ML 1 ML CARP\\VIAL IV PRN (22:14)
[2022-01-27] MEDS ORDERED: SENNA 8.6 MG TAB PO PRN (22:14)
[2022-01-27] MEDS ORDERED: ONDANSETRON INJ 2 MG/ML 2 ML VIAL IV PRN (22:14)
[2022-01-27] MEDS: carvediloL 25 MG TAB PO SCH (23:07)
[2022-01-27] MEDS: ROSUVASTATIN CALCIUM 20 MG TAB PO SCH (23:07)
[2022-01-27] MEDS: ACETAMINOPHEN 500 MG TAB PO SCH (23:08)
[2022-01-27] MEDS: PANTOprazole 40 MG in SYRINGE 0 ML IV SCH (23:08)
[2022-01-27] MEDS: TOPIRAMATE 25 MG TAB PO SCH (23:08)
[2022-01-27] MEDS: GABAPENTIN 300 MG CAP PO SCH (23:08)
[2022-01-27] MEDS: traZODone HCL 50 MG TAB PO SCH (23:09)
[2022-01-27] MEDS: clonazePAM 1 MG TAB PO SCH (23:10)
[2022-01-27] MEDS ORDERED: GADOBUTROL 65ML VIAL IV ONE (23:53)
[2022-01-28 06:37] LABS: Hematocrit (blood only) 36.4 % (40.1-51.0); Hemoglobin 12.9 g/dl (14.0-18.0); Mean Corpuscular Hemoglobin 33.2 pg (25.0-34.0); Mean Corpuscular Hgb Conc 35.4 g/dL (32.0-36.0); Mean Corpuscular Volume 93.8 fL (80.0-100.0); Mean Platelet Volume 9.2 fL (9.4-12.4); Platelet Count 129 K/uL (130-400); RDW Coefficient of Variation 13.1 % (11.5-14.5); RDW Standard Deviation 44.3 fL (36.4-46.3); Red Blood Count 3.88 M/uL (4.63-6.08); White Blood Count 5.32 K/ul (4.8-10.8)
[2022-01-28] MEDS: ACETAMINOPHEN 500 MG TAB PO SCH ×3 (06:37→22:39)
[2022-01-28 07:02] LABS: BUN Creatinine Ratio 12.6 (10-20); Calcium 7.9 mg/dl (8.5-10.1); Creatinine Clr Calc Pharmacy 94.7 ml/min; Est GFR (Non-African American) 90.6 ml/min; Potassium 3.6 mmol/L (3.5-5.1)
[2022-01-28] MEDS: clonazePAM 1 MG TAB PO SCH ×3 (08:10→20:56)
[2022-01-28] MEDS: TOPIRAMATE 25 MG TAB PO SCH ×3 (08:10→20:52)
[2022-01-28] MEDS: TAMSULOSIN HCL 0.4 MG CAP PO SCH (08:10)
[2022-01-28] MEDS: DULoxetine HCL 60 MG CAP PO SCH (08:10)
[2022-01-28] MEDS: lisinopril 40 MG TAB PO SCH (08:11)
[2022-01-28] MEDS: PANTOprazole 40 MG in SYRINGE 0 ML IV SCH ×2 (08:11→20:52)
[2022-01-28] MEDS: GABAPENTIN 300 MG CAP PO SCH ×2 (08:11→20:51)
[2022-01-28] MEDS: carvediloL 25 MG TAB PO SCH ×2 (08:11→20:51)
[2022-01-28] MEDS: LIDOCAINE 5% 1 PATCH TD SCH (08:12)
--- NOTE | 2022-01-28 08:25 | Orthopedic Consultation ---
Date of Consultation January 28, 2022 Assessment & Plan (1) Intractable back pain: MRI is available for review demonstrating adjacent level disc disease L4-L5 with degenerative disc disease throughout the remainder lumbar spine. At this point without gross neural compression I would recommend continued interventional pain management if possible. He may ultimately be a candidate for dose column stimulator trial. History of Present Illness Reason for Consultation: Back pain Attending Physician: Shilpa Li MD History of Present Illness This is a 66-year-old male well-known to me the presents with chronic persistent back pain. He does have a history of a lumbar decompression fusion many years ago at L5-S1. He is demonstrating adjacent level disease. Is been managed with interventional pain management over the past several years. He denies any significant leg pain. He states his lumbosacral back pain is most limiting in nature. Allergies Allergy/AdvReac Type Severity Reaction Status Date / Time aspirin AdvReac Mild UPSET Verified 01/03/22 13:20 STOMACH Home Medications Medication Instructions Recorded Confirmed Type clopidogrel 75 mg tablet (Plavix) 75 mg PO DAILY 10/28/17 01/27/22 History lisinopril 40 mg tablet 40 mg PO DAILY 10/28/17 01/27/22 History sennosides 8.6 mg tablet (senna) 8.6 mg PO BID PRN Constipation 10/28/17 01/27/22 History tamsulosin 0.4 mg capsule (Flomax) 0.4 mg PO DAILY 05/04/18 01/27/22 History clonazepam 1 mg tablet (Klonopin) 1 mg PO TID 11/08/18 01/27/22 History duloxetine 60 mg capsule,delayed 60 mg PO DAILY 06/21/19 01/27/22 History release (Cymbalta) trazodone 150 mg tablet 75 mg PO HS 06/21/19 01/27/22 History rosuvastatin 20 mg tablet (Crestor) 20 mg PO HS 12/01/19 01/27/22 History amlodipine 10 mg tablet 10 mg PO DAILY 01/27/22 01/27/22 History carvedilol 25 mg tablet 25 mg PO BID 01/27/22 01/27/22 History gabapentin 600 mg tablet 900 mg PO BID 01/27/22 01/27/22 History hydrocodone 5 mg-acetaminophen 325 1 tab PO TID 01/27/22 01/27/22 History mg tablet pantoprazole 40 mg tablet,delayed 40 mg PO DAILY 01/27/22 01/27/22 History release topiramate 25 mg tablet 25 mg PO TID 01/27/22 01/27/22 History Patient History Medical History (Updated 01/28/22 @ 07:54 by Shahzad Rojas PA-C) CAD (coronary artery disease) S/p previous stenting, details unknown Cervical disc disorder Cervical post-laminectomy syndrome Cervical radiculopathy Chronic hip pain after total replacement of right hip joint Dyslipidemia Dystonic movements HTN (hypertension) Lumbar radiculopathy Opioid dependence Osteoarthritis Painful total knee replacement (08/22/13) Rib fracture Sleep apnea Surgical History History of back surgery History of total right hip arthroplasty History of total right knee replacement (TKR) Hx of fusion of cervical spine Family History Mother Diabetes Social History Smoking Status: Never smoker Second Hand Exposure: No; Do You Dip or Chew Tobacco: Yes; Tobacco Cessation Education Requested by Patient: No Hx Alcohol Use: No Hx Substance Use: Yes Prescribed Medications: Marijuana Last Used Substance: Hours (ago) Substance Use Type Other:: Patient states he has a medical marijuana card Preferred Language: Mosotho Communication Ability: Effective Visual Impairment: No Limitations Hearing Ability: Normal [employer]ist Required: No Beliefs That Will Affect Care: None marital status: Single Current Living Situation: Family Current Living Situation Comment: Lives with brother current occupational status: retired Other Information That Helps Us Care for You: No Feels Safe at Home: Yes Safety Concerns: Feels Safe At This Time Assistive Devices: Glasses Assistive Devices Comment: glasses at home at this time Physical Exam Physical Exam: On exam he is in bed. Is reasonable strength testing lower extremities. Does have some tenderness palpation of the IT band bilaterally. Results & Data ([facility]) Vital Signs (Past 12 Hours) Vital Signs Temp Pulse Pulse Resp BP BP BP 01/28/22 07:31 36.3 C L 55 L 18 127/82 01/27/22 21:50 36.4 C L 70 16 147/91 H 01/27/22 21:40 67 20 136/83 01/27/22 21:00 71 18 139/90 Pulse Ox O2 Del Method 01/28/22 07:31 92 Room Air 01/27/22 21:50 96 Room Air 01/27/22 21:40 98 Room Air 01/27/22 21:00 96 Room Air
[2022-01-28 08:33] LABS: Appearance Urine Clear (Clear); Bilirubin Urine Negative (Negative); Blood Urine Negative (Negative); Color Urine Yellow; Glucose Urine UA Negative (Negative); Ketones Urine Negative (Negative); Leukocyte Esterase Urine Negative (Negative); Nitrite Urine Negative (Negative); Protein Urine Negative (Negative); Urobilinogen Urine Negative (Negative)
--- NOTE | 2022-01-28 08:55 | Gastrointestinal Consultation ---
Date of Consultation January 28, 2022 Assessment & Plan (1) GI bleedin66 year old male with history of dyslipidemia,, CAD s/p previous stenting, JANI, HTN, s/p previous back and neck surgeries with chronic back pain admitted with intractable back pain. GI asked to evaluate for black stools x 3 months. HGB 12, BUN normal Can continued diet today Hold Plavix NPO midnight EGD Thursday AM IV PPI BID No NSAIDs Trend H&H Monitor and document output Transfuse PRN per primary service Supervising Physician Co-Signing Physician Notes I saw and evaluated the patient. We were asked to see the patient with regard to dark stool that has been ongoing for several months as an outpatient. The patient notes that he presented with acute back discomfort and upper endoscopy has been requested by the internal medicine service. The patient denies having fevers chills sweats or rigors. The patient denies having hematochezia, emesis or hematemesis. The patient did have a prior colonoscopy performed about 5 years ago and is due for surveillance examination early next year. Physical examination NAD No icterus no abdominal tenderness Impression patient presents with a history of back pain, given the history of dark stool ongoing for several months this unlikely represents gastrointestinal bleeding. We can certainly do an upper endoscopy to evaluate for evidence of peptic ulcer disease or an arteriovenous malformation. If negative we will then make arrangements for outpatient colonoscopy in the near future. Please call with any additional questions or concerns. Unfortunately the exam could not be completed today as the patient was eating a regular meal this morning. History of Present Illness Reason for Consultation: black stool Requesting Physician: Jen Attending Physician: Shilpa Li MD History of Present Illness 66 year old male with history of dyslipidemia,, CAD s/p previous stenting, JANI, HTN, s/p previous back and neck surgeries with chronic back pain admitted with intractable back pain. GI asked to evaluate for black stools. Pt was seen, chart reviewed. Notes dark stools x months, at least 3. Does not recall seeing any BRBPR. He denies abd pain, nausea, vomiting. No GERD, dysphagia. On Plavix No NSAIDs CTAP 2021: No acute intra-abdominal or intrapelvic abnormality. 2. No bowel obstruction or bowel wall thickening. Normal appendix. 3. Colonic diverticulosis. 4. No acute fracture identified. 5. Postoperative and degenerative changes of the lumbar spine as above. Allergies Allergy/AdvReac Type Severity Reaction Status Date / Time aspirin AdvReac Mild UPSET Verified 01/03/22 13:20 STOMACH Home Medications Medication Instructions Recorded Confirmed Type clopidogrel 75 mg tablet (Plavix) 75 mg PO DAILY 10/28/17 01/27/22 History lisinopril 40 mg tablet 40 mg PO DAILY 10/28/17 01/27/22 History sennosides 8.6 mg tablet (senna) 8.6 mg PO BID PRN Constipation 10/28/17 01/27/22 History tamsulosin 0.4 mg capsule (Flomax) 0.4 mg PO DAILY 05/04/18 01/27/22 History clonazepam 1 mg tablet (Klonopin) 1 mg PO TID 11/08/18 01/27/22 History duloxetine 60 mg capsule,delayed 60 mg PO DAILY 06/21/19 01/27/22 History release (Cymbalta) trazodone 150 mg tablet 75 mg PO HS 06/21/19 01/27/22 History rosuvastatin 20 mg tablet (Crestor) 20 mg PO HS 12/01/19 01/27/22 History amlodipine 10 mg tablet 10 mg PO DAILY 01/27/22 01/27/22 History carvedilol 25 mg tablet 25 mg PO BID 01/27/22 01/27/22 History gabapentin 600 mg tablet 900 mg PO BID 01/27/22 01/27/22 History hydrocodone 5 mg-acetaminophen 325 1 tab PO TID 01/27/22 01/27/22 History mg tablet pantoprazole 40 mg tablet,delayed 40 mg PO DAILY 01/27/22 01/27/22 History release topiramate 25 mg tablet 25 mg PO TID 01/27/22 01/27/22 History Patient History Medical History (Updated 01/28/22 @ 07:54 by Shahzad Rojas PA-C) CAD (coronary artery disease) S/p previous stenting, details unknown Cervical disc disorder Cervical post-laminectomy syndrome Cervical radiculopathy Chronic hip pain after total replacement of right hip joint Dyslipidemia Dystonic movements HTN (hypertension) Lumbar radiculopathy Opioid dependence Osteoarthritis Painful total knee replacement (08/22/13) Rib fracture Sleep apnea Surgical History History of back surgery History of total right hip arthroplasty History of total right knee replacement (TKR) Hx of fusion of cervical spine Family History Mother Diabetes Social History Smoking Status: Never smoker Second Hand Exposure: No; Do You Dip or Chew Tobacco: Yes; Tobacco Cessation Education Requested by Patient: No Hx Alcohol Use: No Hx Substance Use: Yes Prescribed Medications: Marijuana Last Used Substance: Hours (ago) Substance Use Type Other:: Patient states he has a medical marijuana card Preferred Language: Moroccan Communication Ability: Effective Visual Impairment: No Limitations Hearing Ability: Normal [place] Required: No Beliefs That Will Affect Care: None marital status: Single Current Living Situation: Family Current Living Situation Comment: Lives with brother current occupational status: retired Other Information That Helps Us Care for You: No Feels Safe at Home: Yes Safety Concerns: Feels Safe At This Time Assistive Devices: Glasses Assistive Devices Comment: glasses at home at this time Review of Systems Review of Systems: All systems reviewed & are unremarkable except as noted in HPI & below Physical Exam Constitutional: WD/WN, vitals as above Respiratory: normal respiratory effort, lungs clear to auscultation Cardiovascular: Rate/Rhythm: regular rate and + bradycardic Heart Sounds: normal S1 Gastrointestinal (Abdomen): normal bowel sounds, soft, nontender, no hepatosplenomegaly Skin: no rashes, warm and dry Results & Data ([facility]) Vital Signs (Past 12 Hours) Vital Signs Temp Pulse Pulse Resp BP BP BP 01/28/22 07:31 36.3 C L 55 L 18 127/82 01/27/22 21:50 36.4 C L 70 16 147/91 H 01/27/22 21:40 67 20 136/83 01/27/22 21:00 71 18 139/90 Pulse Ox O2 Del Method 01/28/22 07:31 92 Room Air 01/27/22 21:50 96 Room Air 01/27/22 21:40 98 Room Air 01/27/22 21:00 96 Room Air Laboratory Results 01/28/22 01/28/22 01/28/22 Range/Units 08:15 05:57 05:57 WBC 5.32 (4.8-10.8) K/ul RBC 3.88 L (4.63-6.08) M/uL Hgb 12.9 L (14.0-18.0) g/dl Hct 36.4 L (40.1-51.0) % MCV 93.8 (80.0-100.0) fL MCH 33.2 (25.0-34.0) pg MCHC 35.4 (32.0-36.0) g/dL RDW Std Deviation 44.3 (36.4-46.3) fL RDW Coeff of Hanh 13.1 (11.5-14.5) % Plt Count 129 L (130-400) K/uL MPV 9.2 L (9.4-12.4) fL Immature Gran % (Auto) % Neut % (Auto) % Lymph % (Auto) % Boyd % (Auto) % Eos % (Auto) % Baso % (Auto) % Neut # (Auto) (1.4-6.5) K/uL Lymph # (Auto) (1.2-3.4) K/uL Boyd # (Auto) (0.24-0.82) K/uL Eos # (Auto) (0-0.50) K/uL Baso # (Auto) (0-0.2) K/uL Immature Gran # (Auto) (0.00-0.02) K/uL PT (9.0-12.0) Seconds INR (0.9-1.1) APTT (21.0-31.0) Seconds PTT Ratio Sodium 140 (136-145) mmol/L Potassium 3.6 (3.5-5.1) mmol/L Chloride 110 H (98-107) mmol/L Carbon Dioxide 24 (21-32) mmol/L Anion Gap 6 (3-11) BUN 11 (6-23) mg/dl Creatinine 0.87 (0.6-1.4) mg/dl Est Cr Clr Drug Dosing 94.7 Est GFR ( Amer) 105.0 ml/min Est GFR (Non-Af Amer) 90.6 ml/min BUN/Creatinine Ratio 12.6 (10-20) Glucose 94 (70-99(Fasting)) mg/dl Calcium 7.9 L (8.5-10.1) mg/dl Total Bilirubin (0.2-1.0) mg/dl AST (13-39) U/L ALT (7-52) U/L Alkaline Phosphatase (34-104) U/L Total Protein (6.0-8.3) gm/dl Albumin (3.4-5.0) gm/dl Globulin (2.5-4.0) gm/dl Albumin/Globulin Ratio (0.9-2) Lipase (11-82) U/L Urine Color Yellow Urine Appearance Clear (Clear) Urine pH 7.0 (4.5-7.5) Ur Specific Darragh 1.030 (1.000-1.030) Urine Protein Negative (Negative) Urine Glucose (UA) Negative (Negative) Urine Ketones Negative (Negative) Urine Blood Negative (Negative) Urine Nitrite Negative (Negative) Urine Bilirubin Negative (Negative) Urine Urobilinogen Negative (Negative) Ur Leukocyte Esterase Negative (Negative) SARS-CoV-2, RNA, NAAT (NEGATIVE) Blood Type Antibody Screen Crossmatch 01/28/22 01/27/22 01/27/22 Range/Units 05:57 18:56 16:13 WBC (4.8-10.8) K/ul RBC (4.63-6.08) M/uL Hgb (14.0-18.0) g/dl Hct (40.1-51.0) % MCV (80.0-100.0) fL MCH (25.0-34.0) pg MCHC (32.0-36.0) g/dL RDW Std Deviation (36.4-46.3) fL RDW Coeff of Hanh (11.5-14.5) % Plt Count (130-400) K/uL MPV (9.4-12.4) fL Immature Gran % (Auto) % Neut % (Auto) % Lymph % (Auto) % Boyd % (Auto) % Eos % (Auto) % Baso % (Auto) % Neut # (Auto) (1.4-6.5) K/uL Lymph # (Auto) (1.2-3.4) K/uL Boyd # (Auto) (0.24-0.82) K/uL Eos # (Auto) (0-0.50) K/uL Baso # (Auto) (0-0.2) K/uL Immature Gran # (Auto) (0.00-0.02) K/uL PT (9.0-12.0) Seconds INR (0.9-1.1) APTT (21.0-31.0) Seconds PTT Ratio Sodium 140 (136-145) mmol/L Potassium 3.8 (3.5-5.1) mmol/L Chloride 109 H (98-107) mmol/L Carbon Dioxide 26 (21-32) mmol/L Anion Gap 5 (3-11) BUN 13 (6-23) mg/dl Creatinine 0.89 (0.6-1.4) mg/dl Est Cr Clr Drug Dosing Not Reportable Est GFR ( Amer) 104.0 ml/min Est GFR (Non-Af Amer) 89.7 ml/min BUN/Creatinine Ratio 14.6 (10-20) Glucose 113 H (70-99(Fasting)) mg/dl Calcium 8.5 (8.5-10.1) mg/dl Total Bilirubin 0.6 (0.2-1.0) mg/dl AST 19 (13-39) U/L ALT 18 (7-52) U/L Alkaline Phosphatase 59 (34-104) U/L Total Protein 6.6 (6.0-8.3) gm/dl Albumin 4.2 (3.4-5.0) gm/dl Globulin 2.4 L (2.5-4.0) gm/dl Albumin/Globulin Ratio 1.8 (0.9-2) Lipase 23 (11-82) U/L Urine Color Urine Appearance (Clear) Urine pH (4.5-7.5) Ur Specific Darragh (1.000-1.030) Urine Protein (Negative) Urine Glucose (UA) (Negative) Urine Ketones (Negative) Urine Blood (Negative) Urine Nitrite (Negative) Urine Bilirubin (Negative) Urine Urobilinogen (Negative) Ur Leukocyte Esterase (Negative) SARS-CoV-2, RNA, NAAT NEGATIVE (NEGATIVE) Blood Type O Positive Antibody Screen NEGATIVE Crossmatch See Detail 01/27/22 01/27/22 Range/Units 16:13 16:13 WBC 7.04 (4.8-10.8) K/ul RBC 4.37 L (4.63-6.08) M/uL Hgb 14.7 (14.0-18.0) g/dl Hct 40.2 (40.1-51.0) % MCV 92.0 (80.0-100.0) fL MCH 33.6 (25.0-34.0) pg MCHC 36.6 H (32.0-36.0) g/dL RDW Std Deviation 42.8 (36.4-46.3) fL RDW Coeff of Hanh 12.9 (11.5-14.5) % Plt Count 142 (130-400) K/uL MPV 9.1 L (9.4-12.4) fL Immature Gran % (Auto) 3.8 % Neut % (Auto) 65.4 % Lymph % (Auto) 21.2 % Boyd % (Auto) 7.1 % Eos % (Auto) 1.8 % Baso % (Auto) 0.7 % Neut # (Auto) 4.60 (1.4-6.5) K/uL Lymph # (Auto) 1.49 (1.2-3.4) K/uL Boyd # (Auto) 0.50 (0.24-0.82) K/uL Eos # (Auto) 0.13 (0-0.50) K/uL Baso # (Auto) 0.05 (0-0.2) K/uL Immature Gran # (Auto) 0.27 H (0.00-0.02) K/uL PT 10.3 (9.0-12.0) Seconds INR 1.0 (0.9-1.1) APTT 26.8 (21.0-31.0) Seconds PTT Ratio 1.0 Sodium (136-145) mmol/L Potassium (3.5-5.1) mmol/L Chloride (98-107) mmol/L Carbon Dioxide (21-32) mmol/L Anion Gap (3-11) BUN (6-23) mg/dl Creatinine (0.6-1.4) mg/dl Est Cr Clr Drug Dosing Est GFR ( Amer) ml/min Est GFR (Non-Af Amer) ml/min BUN/Creatinine Ratio (10-20) Glucose (70-99(Fasting)) mg/dl Calcium (8.5-10.1) mg/dl Total Bilirubin (0.2-1.0) mg/dl AST (13-39) U/L ALT (7-52) U/L Alkaline Phosphatase (34-104) U/L Total Protein (6.0-8.3) gm/dl Albumin (3.4-5.0) gm/dl Globulin (2.5-4.0) gm/dl Albumin/Globulin Ratio (0.9-2) Lipase (11-82) U/L Urine Color Urine Appearance (Clear) Urine pH (4.5-7.5) Ur Specific Darragh (1.000-1.030) Urine Protein (Negative) Urine Glucose (UA) (Negative) Urine Ketones (Negative) Urine Blood (Negative) Urine Nitrite (Negative) Urine Bilirubin (Negative) Urine Urobilinogen (Negative) Ur Leukocyte Esterase (Negative) SARS-CoV-2, RNA, NAAT (NEGATIVE) Blood Type Antibody Screen Crossmatch
[2022-01-28] MEDS: HYDROmorphone INJ 0.5 MG/0.5 ML SYR IV PRN ×4 (09:09→21:39)
[2022-01-28] MEDS: amLODIPine BESYLATE 5 MG TAB PO SCH (09:09)
--- NOTE | 2022-01-28 12:23 | Pain Management Consultation ---
Date of Consultation January 28, 2022 Assessment & Plan (1) Intractable back pain: (2) Lumbar radiculopathy: (3) Lumbar postlaminectomy syndrome: (4) Opioid dependence in controlled environment: (5) Cervical post-laminectomy syndrome: Plan 1. There does appear to be moderate stenosis at L4-5. We have discussed pursuing an L4-5 interlaminar epidural steroid injection on an outpatient basis for pain relief. He is also being worked up for GI bleed so when he is discharged to home this will be arranged. 2. Continue Oxycodone 5mg and IV Dilaudid for pain relief. 3. Consider the addition of a Medrol Pack but will defer for now due to GI bleed evaluation. 4. Continue chronic Cymbalta 60mg daily and Gabapentin 1200mg four times daily. Thank you for the consultation. Please contact with any questions or concerns. History of Present Illness Reason for Consultation: Back pain Attending Physician: Shilpa Li MD History of Present Illness This is a 66 year old male that is well known to the [facility] with chronic cervical pain. He chronically takes Cymbalta 60 mg daily, gabapentin 1200 mg 4 times daily, and hydrocodone 5/325mg 3 times daily. He was seen last month for evaluation of lumbar pain without any injury. Lumbar MRI was was scheduled for 02/05/22. He has been experiencing pain in the low back with radicular symptoms into the hips. He states that the pain is aggravated with standing and walking and improved with sitting and laying supine. Patient states that the pain is causing significant limitation into performing his daily activities. He states that he is only able to shower and then he is unable to do anything else for the day. He denies any leg weakness, saddle aneshtesia, foot drop, bowel/bladder incontinence, or falls. Case discussed with Dr. Judy Cuevas Allergies Allergy/AdvReac Type Severity Reaction Status Date / Time aspirin AdvReac Mild UPSET Verified 01/03/22 13:20 STOMACH Home Medications Medication Instructions Recorded Confirmed Type clopidogrel 75 mg tablet (Plavix) 75 mg PO DAILY 10/28/17 01/27/22 History lisinopril 40 mg tablet 40 mg PO DAILY 10/28/17 01/27/22 History sennosides 8.6 mg tablet (senna) 8.6 mg PO BID PRN Constipation 10/28/17 01/27/22 History tamsulosin 0.4 mg capsule (Flomax) 0.4 mg PO DAILY 05/04/18 01/27/22 History clonazepam 1 mg tablet (Klonopin) 1 mg PO TID 11/08/18 01/27/22 History duloxetine 60 mg capsule,delayed 60 mg PO DAILY 06/21/19 01/27/22 History release (Cymbalta) trazodone 150 mg tablet 75 mg PO HS 06/21/19 01/27/22 History rosuvastatin 20 mg tablet (Crestor) 20 mg PO HS 12/01/19 01/27/22 History amlodipine 10 mg tablet 10 mg PO DAILY 01/27/22 01/27/22 History carvedilol 25 mg tablet 25 mg PO BID 01/27/22 01/27/22 History gabapentin 600 mg tablet 900 mg PO BID 01/27/22 01/27/22 History hydrocodone 5 mg-acetaminophen 325 1 tab PO TID 01/27/22 01/27/22 History mg tablet pantoprazole 40 mg tablet,delayed 40 mg PO DAILY 01/27/22 01/27/22 History release topiramate 25 mg tablet 25 mg PO TID 01/27/22 01/27/22 History Patient History Medical History CAD (coronary artery disease) S/p previous stenting, details unknown Cervical disc disorder Cervical post-laminectomy syndrome Cervical radiculopathy Chronic hip pain after total replacement of right hip joint Dyslipidemia Dystonic movements HTN (hypertension) Lumbar radiculopathy Opioid dependence Osteoarthritis Painful total knee replacement (08/22/13) Rib fracture Sleep apnea Surgical History History of back surgery History of total right hip arthroplasty History of total right knee replacement (TKR) Hx of fusion of cervical spine Family History Mother Diabetes Social History Smoking Status: Never smoker Second Hand Exposure: No; Do You Dip or Chew Tobacco: Yes; Tobacco Cessation Education Requested by Patient: No Hx Alcohol Use: No Hx Substance Use: Yes Prescribed Medications: Marijuana Last Used Substance: Hours (ago) Substance Use Type Other:: Patient states he has a medical marijuana card Preferred Language: New Zealander Communication Ability: Effective Visual Impairment: No Limitations Hearing Ability: Normal [place] Required: No Beliefs That Will Affect Care: None marital status: Single Current Living Situation: Family Current Living Situation Comment: Lives with brother current occupational status: retired Other Information That Helps Us Care for You: No Feels Safe at Home: Yes Safety Concerns: Feels Safe At This Time Assistive Devices: Glasses Assistive Devices Comment: glasses at home at this time Physical Exam Physical Exam: GENERAL: This is a 66 year old male. Sleeping on arrival. HEAD/FACE: Normocephalic and atraumatic. EYES: No drainage or conjunctival injection. ENT: Nose without bleeding or discharge. Oral mucosa moist. NECK: Full ROM without apparent pain. No swelling or masses noted. RESPIRATORY: Patient with unlabored breathing. No signs of respiratory distress. CHEST/AXILLA: Chest movement symmetrical. No deformities noted. ABDOMEN/GI: No distension BACK: Decreased ROM. Well healed surgical incision of the lumbar midline. There is tenderness at L3-5. No SI joint tenderness. Mild myofascial spasm of the lumbar paravertebral musculature. SKIN: Tracy, warm and dry. No rash noted. MS/EXTREMITY: 5/5 strength of the bilateral lower extremities. NEURO: Alert and appears oriented. Speech is fluent. Cranial Nerves are grossly intact. PSYCH: Alert, pleasant, affect is calm Results ([facility]) Diagnostic Review MRI Findings: Lumbar MRI radiologist read not yet available. CT Findings: CT lumbar spine w con, CT abd pelvis IV con only HISTORY: 66 years-old Male low back pain, into hips. Rectal bleeding acute abdominal trauma back pain with rectal bleeding COMPARISON: Lumbar spine radiographs 11/27/2021 TECHNIQUE: Multiple axial CT images of the abdomen, pelvis and lumbar spine were obtained following the intravenous administration of 78 mL Optiray 350. A dose lowering technique was used consistent with the principals of ALARA. FINDINGS: CT LUMBAR SPINE: L5 laminectomy. Posterior interbody birgit and screw fusion with discectomy at L5- S1. The hardware appears intact. Moderate to advanced multilevel anterior endplate predominant spondylitic spurring with mostly mild multilevel vertebral disc space narrowing and moderate facet arthrosis. No acute fracture or subluxation identified. No paravertebral edema identified. Multilevel posterior annular disc bulging. There is at least moderate central canal stenosis at L3-L4 and L4-L5. CT ABDOMEN/PELVIS: The lung bases are generally clear. Coronary artery calcifications. No pneumatosis or pneumoperitoneum. Unremarkable spleen, mildly atrophic pancreas and adrenal glands which demonstrate mild fatty replacement. The gallbladder is within normal limits. Hepatic steatosis. Patency of the hepatic and portal veins. There is mild nonspecific bilateral perinephric stranding. Mild cortical thinning of the kidneys. No hydronephrosis. Prostamegaly. Small fat filled inguinal hernias. Mild urinary bladder wall thickening with partial distention. Atherosclerosis of the aorta without aneurysm. No lymphadenopathy identified. Small duodenal diverticulum. No bowel obstruction or bowel wall thickening. Colonic diverticulosis without acute diverticulitis. Normal appendix. Unremarkable soft tissues. Right hip arthroplasty. Fusion hardware at L5-S1. Healed chronic anterior rib fractures. No acute fracture identified. IMPRESSION: 1. No acute intra-abdominal or intrapelvic abnormality. 2. No bowel obstruction or bowel wall thickening. Normal appendix. 3. Colonic diverticulosis. 4. No acute fracture identified. 5. Postoperative and degenerative changes of the lumbar spine as above. ACT 112: Negative or not required by law. The above report was generated using voice recognition software. It may contain grammatical, syntax or spelling errors. Electronically signed by: Reggie Talavera M.D. 01/27/2022 5:38 PM
--- NOTE | 2022-01-28 14:14 | Hospitalist Progress Note ---
Date of Service January 28, 2022 Assessment & Plan (1) Intractable back pain: Plan: Patient presenting from home with reports of worsening back pain over the past 3 weeks. History of prior neck and back surgeries with residual chronic pain syndrome. In the ED, CT lumbar spine shows L5 laminectomy. Posterior interbody birgit and screw fusion with discectomy at L5-S1. The hardware appears intact. Moderate to advanced multilevel anterior endplate predominant spondylitic spurring with mostly mild multilevel vertebral disc space narrowing and moderate facet arthrosis. No acute fracture or subluxation identified. No paravertebral edema identified. Multilevel posterior annular disc bulging. There is at least moderate central canal stenosis at L3-L4 and L4-L5. Continue pain control with Tylenol, Lidoderm patch, gabapentin as needed oxyco done and morphine for breakthrough pain. Ortho on board recommended no surgical indication Pain management on board Plan for L4-5 interlaminar epidural steroid injection on an outpatient basis for pain relief. Continue Oxycodone 5mg and IV Dilaudid for pain relief. Continue chronic Cymbalta 60mg daily and Gabapentin 1200mg four times daily. Consider Medrol dose pack if no evidence of GI bleed Continue monitor closely (2) GI bleeding: Plan: Patient reports intermittent episodes of black stools over the past 3 months. 3 days ago, patient reports passing dark red blood with clots. No further episodes of bleeding since. Hgb 12.9 today gastro on board Plan for EGD tomorrow continue to hold plavix for now NPO after midnight Continue monitor H/H (3) CAD (coronary artery disease): Plan: Remote history of prior stenting Clopidogrel on hold due to possible GI bleeding continue statin and beta-shamar (4) HTN (hypertension): Plan: BP controlled, continue amlodipine, carvedilol DVT prophylaxis SCDs due to possible GI bleeding Admission and Anticipated Discharge Date Admission Date: January 27, 2022 Subjective Pt was seen and examined for follow up of back pain Lying in bed with no acute distress Pt said that back pain stable as long as he does not move Denies any chest pain, palpitation, dizziness and SOB Review of Systems Review of Systems: All systems reviewed & are unremarkable except as noted in HPI & below Physical Exam Physical Exam: General- No acute distress Head- atraumatic Eyes- PERRL, EOMI, ENT- oropharynx clear Neck- supple, no JVD Lungs- clear to auscultation Heart- regular rhythm; no murmur Abdomen- normal bowel sounds, soft, nontender Extremities- no calf tenderness Neuro- alert, oriented x 3; PERRL, EOMI; no facial palsy; no dysarthria Skin- warm & dry Results & Data Results & Data ([facility]) Vital Signs (Past 12 Hours) Vital Signs Temp Pulse Resp BP Pulse Ox O2 Del Method 01/28/22 07:31 36.3 C L 55 L 18 127/82 92 Room Air
--- NOTE | 2022-01-28 18:56 | Magnetic Resonance Report ---
MR lumbar spine wo/w con CLINICAL HISTORY: intractable back pain TECHNIQUE: 3 plane localizer images, sagittal T2, sagittal T1, sagittal STIR, axial T1, axial T2 ole g with postcontrast axial T1 and sagittal T1 fat-saturated sequences were obtained of the lumbar spin e, before and after intravenous administration of 12 mL of MultiHance. Comparison: Comparison is made to MRI spine 01/17/[address] abdomen pelvis 01/27/[address] lumbar spine 01/27/2022 FINDINGS: The alignment is anatomical. Degenerative changes are noted in the discs and vertebral bodies. Poste rior fixation hardware is seen at L5-S1. L1-L2: No significant abnormality. L2-L3: Broad-based posterior disc bulge is seen with mild canal stenosis. No significant neuroforamin al stenosis. L3-L4: There is a broad-based posterior disc bulge with moderate canal stenosis, AP diameter 7 mm. Th ere is mild bilateral neuroforaminal stenosis. L4-L5: There is a broad-based posterior disc bulge with moderate canal stenosis, AP diameter 8 mm, an d severe bilateral neural foraminal stenosis. L5-S1: Status post decompression without significant canal or neuroforaminal stenosis. The spinal ligaments are intact, without evidence of disruption or abnormal signal intensity. The spi nal cord is normal in signal intensity and there is no evidence of cord contusion. There is no eviden ce of an extradural, intradural, extramedullary or intramedullary lesion. A small amount of soft tiss ue edema is noted posteriorly. IMPRESSION: Multilevel degenerative changes are seen. There is up to moderate canal stenosis with AP diameter 7 m m and severe bilateral neural foraminal stenosis. These degenerative findings are increased from prio r MRI performed 2007. ACT 112: Negative or not required by law. Electronically signed by: Arturo Joe M.D. 01/28/2022 6:53 PM
[2022-01-28] MEDS: ROSUVASTATIN CALCIUM 20 MG TAB PO SCH (20:51)
[2022-01-28] MEDS: traZODone HCL 50 MG TAB PO SCH (20:53)
[2022-01-28] MEDS: oxyCODONE HCL IR 5 MG TAB (IMMEDIATE RELEASE) PO PRN (23:14)
[2022-01-29] MEDS: ACETAMINOPHEN 500 MG TAB PO SCH ×3 (06:09→22:35)
[2022-01-29] MEDS: HYDROmorphone INJ 0.5 MG/0.5 ML SYR IV PRN ×4 (06:36→19:45)
--- NOTE | 2022-01-29 08:42 | Gastroenterology Progress Note ---
Date of Service January 29, 2022 Assessment & Plan (1) GI bleeding: Plan: 66 year old male with history of dyslipidemia,, CAD s/p previous stenting, JANI, HTN, s/p previous back and neck surgeries with chronic back pain admitted with intractable back pain. GI asked to evaluate for black stools x 3 months. HGB 12, BUN normal NPO EGD this AM IV PPI BID No NSAIDs Trend H&H Monitor and document output Transfuse PRN per primary service Thank you for allowing us to participate in the care of this patient. Please call with any acute changes, questions or concerns. Please see addendum below with additional recommendation from my supervising physician. Admission and Anticipated Discharge Date Admission Date: January 27, 2022 Supervising Physician Co-Signing Physician Notes I saw and evaluated the patient. Upper endoscopy is planned for evaluation of dark stool noted upon admission. Of note the patient has had no significant change in his hemoglobin or hematocrit since admission. If negative the patient will have an outpatient colonoscopy arranged. We have discussed risks of upper endoscopy to include bleeding infection perforation pain and need for follow-up studies. Subjective Pt was seen, chart reviewed. No abd pain. No nausea, vomiting. Has not had any black stools overnight. Review of Systems Review of Systems: All systems reviewed & are unremarkable except as noted in HPI & below Physical Exam Constitutional: WD/WN, vitals as above Respiratory: normal respiratory effort, lungs clear to auscultation Cardiovascular: Rate/Rhythm: regular rate and regular rhythm Gastrointestinal (Abdomen): normal bowel sounds, soft, nontender, no hepatosplenomegaly Skin: no rashes, warm and dry Results & Data ([facility]) Vital Signs (Past 12 Hours) Vital Signs Temp Pulse Resp BP Pulse Ox O2 Del Method 01/29/22 07:38 36.4 C L 57 L 18 105/66 94 Room Air 01/28/22 21:13 36.5 C 63 18 156/64 H 96 Room Air 01/28/22 20:46 36.6 C 17 152/79 H 95 Room Air Laboratory Results No new labs
[2022-01-29] MEDS ORDERED: MIDAZOLAM HCL 1 MG/ML 2ML VIAL ONE (09:51)
[2022-01-29] MEDS ORDERED: PROPOFOL IV EMULSION 10 MG/ML 20 ML VIAL IV ONE (09:52)
[2022-01-29] MEDS ORDERED: ONDANSETRON INJ 2 MG/ML 2 ML VIAL ONE (09:52)
[2022-01-29] MEDS ORDERED: LIDOCAINE 2% MPF LOCAL 5 ML VIAL INFIL ONE (09:52)
--- NOTE | 2022-01-29 10:30 | Anesthesiology Consultation ---
Date of Service January 29, 2022 Assessment & Plan Chart Review Chart Review: Acceptable Risk for Surgery Consults Requested none History Surgery Operation Date: 01/29/22 16:00 Proposed Procedures p Esophagogastroduodenoscopy Dr Gab De Guzman, DO Height/Weight Height: 5 ft 8 in Weight: 95.2 kg Allergies Allergy/AdvReac Type Severity Reaction Status Date / Time aspirin AdvReac Mild UPSET Verified 01/03/22 13:20 STOMACH Medications Home Medications Medication Instructions Recorded Confirmed Last Taken clopidogrel 75 mg tablet (Plavix) 75 mg PO DAILY 10/28/17 01/27/22 Unknown lisinopril 40 mg tablet 40 mg PO DAILY 10/28/17 01/27/22 Unknown sennosides 8.6 mg tablet (senna) 8.6 mg PO BID PRN Constipation 10/28/17 01/27/22 Unknown tamsulosin 0.4 mg capsule (Flomax) 0.4 mg PO DAILY 05/04/18 01/27/22 Unknown clonazepam 1 mg tablet (Klonopin) 1 mg PO TID 11/08/18 01/27/22 Unknown duloxetine 60 mg capsule,delayed 60 mg PO DAILY 06/21/19 01/27/22 Unknown release (Cymbalta) trazodone 150 mg tablet 75 mg PO HS 06/21/19 01/27/22 Unknown rosuvastatin 20 mg tablet (Crestor) 20 mg PO HS 12/01/19 01/27/22 Unknown amlodipine 10 mg tablet 10 mg PO DAILY 01/27/22 01/27/22 Unknown carvedilol 25 mg tablet 25 mg PO BID 01/27/22 01/27/22 Unknown gabapentin 600 mg tablet 900 mg PO BID 01/27/22 01/27/22 Unknown hydrocodone 5 mg-acetaminophen 325 1 tab PO TID 01/27/22 01/27/22 Unknown mg tablet pantoprazole 40 mg tablet,delayed 40 mg PO DAILY 01/27/22 01/27/22 Unknown release topiramate 25 mg tablet 25 mg PO TID 01/27/22 01/27/22 Unknown Active Medications Generic Name Dose Route Start Last Admin Trade Name Freq PRN Reason Stop Dose Admin Acetaminophen 1,000 mg 01/27/22 22:14 01/29/22 06:09 Acetaminophen 500 Mg Tab PO 02/26/22 22:13 1,000 mg Q8H MARIO Administration Amlodipine Besylate 10 mg 01/28/22 09:00 01/28/22 09:09 Amlodipine Besylate 5 Mg Tab PO 02/27/22 08:59 10 mg DAILY MARIO Administration Carvedilol 25 mg 01/27/22 22:14 01/28/22 20:51 Carvedilol 25 Mg Tab PO 02/26/22 22:13 25 mg BID MARIO Administration Clonazepam 1 mg 01/27/22 22:14 01/28/22 20:56 Clonazepam 1 Mg Tab PO 02/26/22 22:13 1 mg TID MARIO Administration Duloxetine HCl 60 mg 01/28/22 09:00 01/28/22 08:10 Duloxetine Hcl 60 Mg Cap PO 02/27/22 08:59 60 mg DAILY MARIO Administration Gabapentin 900 mg 01/27/22 22:14 01/28/22 20:51 Gabapentin 300 Mg Cap PO 02/26/22 22:13 900 mg BID MARIO Administration Hydromorphone HCl 0.5 mg 01/28/22 08:23 01/29/22 06:36 Hydromorphone Inj 0.5 Mg/0.5 Ml Syr IV 02/11/22 08:22 0.5 mg Q3H PRN Administration Pain (6,7,8,9,10) Pantoprazole Sodium 40 mg/ 10 mls @ 5 mls/min 01/27/22 22:14 01/28/22 20:52 Syringe IV 02/26/22 22:13 5 mls/min BID MARIO Administration Lidocaine 1 patch 01/28/22 09:00 01/28/22 08:12 Lidocaine 5% 1 Patch TD 02/27/22 08:59 Not Given QAM MARIO Lisinopril 40 mg 01/28/22 09:00 01/28/22 08:11 Lisinopril 40 Mg Tab PO 02/27/22 08:59 40 mg DAILY MARIO Administration Miscellaneous 1 each 01/28/22 21:00 01/28/22 22:08 Remove Lidoderm Patch N/A 02/27/22 20:59 Not Given DAILY@2100 MARIO Oxycodone HCl 5 mg 01/27/22 22:14 01/28/22 23:14 Oxycodone Hcl Ir 5 Mg Tab (Immediate Release) PO 02/10/22 22:13 5 mg Q8H PRN Administration moderate pain Rosuvastatin Calcium 20 mg 01/27/22 22:14 01/28/22 20:51 Rosuvastatin Calcium 20 Mg Tab PO 02/26/22 22:13 20 mg HS MARIO Administration Tamsulosin HCl 0.4 mg 01/28/22 09:00 01/28/22 08:10 Tamsulosin Hcl 0.4 Mg Cap PO 02/27/22 08:59 0.4 mg DAILY MARIO Administration Topiramate 25 mg 01/27/22 22:14 01/28/22 20:52 Topiramate 25 Mg Tab PO 02/26/22 22:13 25 mg TID MARIO Administration Trazodone HCl 75 mg 01/27/22 22:14 01/28/22 20:53 Trazodone Hcl 50 Mg Tab PO 02/26/22 22:13 75 mg HS MARIO Administration NPO Date Last Intake of Fluids: 01/28/22 Time Last Intake of Fluids: 23:00 Date Last Intake of Solids: 01/28/22 Time Last Intake of Solids: 18:00 Past Medical History Medical History CAD (coronary artery disease) S/p previous stenting, details unknown Cervical disc disorder Cervical post-laminectomy syndrome Cervical radiculopathy Chronic hip pain after total replacement of right hip joint Dyslipidemia Dystonic movements HTN (hypertension) Lumbar radiculopathy Opioid dependence Osteoarthritis Painful total knee replacement (08/22/13) Rib fracture Sleep apnea Past Family History Family History Mother Diabetes Past Surgical History Surgical History History of back surgery History of total right hip arthroplasty History of total right knee replacement (TKR) Hx of fusion of cervical spine Social History Smoking Status: Never smoker tobacco type: smokeless tobacco Do You Dip or Chew Tobacco: Yes Hx Alcohol Use: No Alcohol type: hard liquor Hx Substance Use: Yes substance use type: marijuana Substance Use Type Other:: Patient states he has a medical marijuana card Last Used Substance: Hours (ago) Physical Exam Vital Signs Last Vital Signs Temp 36.2 C L 01/29/22 10:03 Pulse 57 L 01/29/22 10:03 Resp 22 01/29/22 10:03 BP 123/72 01/29/22 10:03 Pulse Ox 95 01/29/22 10:03 O2 Del Method 01/29/22 10:03 Testing Laboratory Results 01/28/22 05:57 01/28/22 05:57 PT 10.3 Seconds (9.0-12.0) 01/27/22 16:13 INR 1.0 (0.9-1.1) 01/27/22 16:13 APTT 26.8 Seconds (21.0-31.0) 01/27/22 16:13 Urine Color Yellow 01/28/22 08:15 Urine Appearance Clear (Clear) 01/28/22 08:15 Urine pH 7.0 (4.5-7.5) 01/28/22 08:15 Ur Specific Perry 1.030 (1.000-1.030) 01/28/22 08:15 Urine Protein Negative (Negative) 01/28/22 08:15 Urine Glucose (UA) Negative (Negative) 01/28/22 08:15 Urine Ketones Negative (Negative) 01/28/22 08:15 Urine Nitrite Negative (Negative) 01/28/22 08:15 Ur Leukocyte Esterase Negative (Negative) 01/28/22 08:15 Blood Type O Positive 01/28/22 05:57 Antibody Screen NEGATIVE 01/28/22 05:57
--- NOTE | 2022-01-29 10:56 | Communication Note ---
Date of Service: January 29, 2022 Patient underwent upper endoscopy this afternoon. Due to retained gastric contents complete examination could not be performed. Of note there was no evidence of new blood or old blood within the stomach. Recommendations As the patient had no significant drop in his hemoglobin or hematocrit I would suggest that we do and outpatient upper endoscopy and colonoscopy advance diet as tolerated Please call with any questions or concerns gastroenterology to sign-off
--- NOTE | 2022-01-29 11:00 | GI REPORT ---
Patient Name: Nahum Armenta Procedure Date: 01/29/2022 10:43 AM Date of : 1955 Admit Type: Inpatient Age: 66 Gender: Male Attending MD: Garth De Guzman DO, Procedure: Upper GI endoscopy Providers: Garth De Guzman DO Referring MD: SHARON SCANLON Indications: Melena Medicines: Monitored Anesthesia Care Complications: No immediate complications. Estimated blood loss: Minimal. Estimated Blood Loss: Estimated blood loss was minimal. Procedure: Pre-Anesthesia Assessment: - Prior to the procedure, a History and Physical was performed, and patient medications, allergies and sensitivities were reviewed. The patient's tolerance of previous anesthesia was reviewed. - The risks and benefits of the procedure and the sedation options and risks were discussed with the patient. All questions were answered and informed consent was obtained. - Patient identification and proposed procedure were verified prior to the procedure by the physician, the nurse and the manager sap. The procedure was verified in the procedure room. - Pre-procedure physical examination revealed no contraindications to sedation. - ASA Grade Assessment: III - A patient with severe systemic disease. - After reviewing the risks and benefits, the patient was deemed in satisfactory condition to undergo the procedure. - The anesthesia plan was to use monitored anesthesia care (MAC). - Immediately prior to administration of medications, the patient was re-assessed for adequacy to receive sedatives. - The heart rate, respiratory rate, oxygen saturations, blood pressure, adequacy of pulmonary ventilation, and response to care were monitored throughout the procedure. - The physical status of the patient was re-assessed after the procedure. After obtaining informed consent, the endoscope was passed under direct vision. Throughout the procedure, the patient's blood pressure, pulse, and oxygen saturations were monitored continuously. The Scope was introduced through the mouth, with the intention of advancing to the stomach. The scope was advanced to the antrum before the procedure was aborted. Medications were given. The upper GI endoscopy was accomplished without difficulty. The patient tolerated the procedure well. Findings: The examined esophagus was normal. A medium amount of food (residue) was found in the gastric body. There is no endoscopic evidence of bleeding /clots in the entire examined stomach. Impression: - Normal esophagus. - A medium amount of food (residue) in the stomach. - No specimens collected. Recommendation: - Return patient to [facility]. -We will make arrangements for outpatient upper endoscopy and colonoscopy in the near future. -Advance diet as tolerated -Call with any questions or concerns . Garth De Guzman D.O. Garth De Guzman, DO 01/29/2022 11:00:09 AM This report has been signed electronically. Note Initiated On: 01/29/2022 10:43 AM Number of Addenda: 0 I attest to the content of the Intraoperative Record and orders documented therein, exceptions below {[id number]}
--- NOTE | 2022-01-29 11:09 | Anesthesiology Progress Note ---
Date of Service January 29, 2022 Anesthesia Post Procedure Vital Signs Vital Signs: Temp Pulse Resp BP Pulse Ox O2 Del Method O2 Flow Rate 01/29/22 10:58 55 L 16 114/86 100 Oxymask 8 01/29/22 10:03 36.2 C L 57 L 22 123/72 95 Room Air 01/29/22 07:38 36.4 C L 57 L 18 105/66 94 Room Air 01/28/22 21:13 36.5 C 63 18 156/64 H 96 Room Air 01/28/22 20:46 36.6 C 17 152/79 H 95 Room Air 01/28/22 20:00 Room Air 01/28/22 16:00 36.6 C 69 18 142/79 H 94 Room Air Pain Intensity Lower Back: Pain Intensity: 4 Transfer of Care Handoff Completed per policy Notes Mental Status: alert / awake / arousable and participated in evaluation Patient Amnestic to Procedure: Yes Nausea / Vomiting: adequately controlled Pain: adequately controlled Airway Patency, RR, SpO2: stable & adequate BP & HR: stable & adequate Hydration State: stable & adequate Anesthetic Complications: no major complications apparent
[2022-01-29] MEDS: amLODIPine BESYLATE 5 MG TAB PO SCH (12:16)
[2022-01-29] MEDS: carvediloL 25 MG TAB PO SCH ×2 (12:17→22:30)
[2022-01-29] MEDS: GABAPENTIN 300 MG CAP PO SCH ×2 (12:18→22:29)
[2022-01-29] MEDS: DULoxetine HCL 60 MG CAP PO SCH (12:18)
[2022-01-29] MEDS: lisinopril 40 MG TAB PO SCH (12:19)
[2022-01-29] MEDS: LIDOCAINE 5% 1 PATCH TD SCH (12:19)
[2022-01-29] MEDS: TAMSULOSIN HCL 0.4 MG CAP PO SCH (12:20)
[2022-01-29] MEDS: TOPIRAMATE 25 MG TAB PO SCH ×3 (12:21→22:29)
[2022-01-29] MEDS: PANTOprazole 40 MG in SYRINGE 0 ML IV SCH ×2 (12:22→22:28)
[2022-01-29] MEDS ORDERED: bisacodyL 5 MG TABEC PO PRN (14:00)
[2022-01-29] MEDS ORDERED: bisacodyL 5 MG TABEC PO ONE (14:15)
[2022-01-29] MEDS: clonazePAM 1 MG TAB PO SCH ×3 (14:24→22:37)
[2022-01-29] MEDS: oxyCODONE HCL IR 5 MG TAB (IMMEDIATE RELEASE) PO PRN ×2 (14:35→22:36)
--- NOTE | 2022-01-29 17:34 | Hospitalist Progress Note ---
Date of Service January 29, 2022 Assessment & Plan (1) Intractable back pain: Plan: Patient presenting from home with reports of worsening back pain over the past 3 weeks. History of prior neck and back surgeries with residual chronic pain syndrome. In the ED, CT lumbar spine shows L5 laminectomy. Posterior interbody birgit and screw fusion with discectomy at L5-S1. The hardware appears intact. Moderate to advanced multilevel anterior endplate predominant spondylitic spurring with mostly mild multilevel vertebral disc space narrowing and moderate facet arthrosis. No acute fracture or subluxation identified. No paravertebral edema identified. Multilevel posterior annular disc bulging. There is at least moderate central canal stenosis at L3-L4 and L4-L5. Continue pain control with Tylenol, Lidoderm patch, gabapentin as needed oxyco done and morphine for breakthrough pain. Ortho on board recommended no surgical indication Pain management on board Plan for L4-5 interlaminar epidural steroid injection on an outpatient basis for pain relief. Continue Oxycodone 5mg and IV Dilaudid for pain relief. Continue chronic Cymbalta 60mg daily and Gabapentin 1200mg four times daily. Consider Medrol dose pack if no evidence of GI bleed PT/OT eval Continue monitor closely (2) GI bleeding: Plan: Patient reports intermittent episodes of black stools over the past 3 months. 3 days ago, patient reports passing dark red blood with clots. No further episodes of bleeding since. Hgb 12.9 today gastro on board EGD done today showed no evidence of new blood or old blood within the stomach. gastro recommended outpatient upper endoscopy and colon in the future since there is no significant drop in hgb Ok from GI standpoint to resume plavix Diet advanced as tolerated FOBT pending Continue monitor H/H (3) CAD (coronary artery disease): Plan: Remote history of prior stenting Clopidogrel on hold due to possible GI bleeding continue statin and beta-shamar Will resume plavix (4) HTN (hypertension): Plan: BP controlled, continue amlodipine, carvedilol DVT prophylaxis SCDs due to possible GI bleeding Admission and Anticipated Discharge Date Admission Date: January 27, 2022 Subjective Pt was seen and examined for follow up of back pain and dark stool Lying in bed with no acute distress He said that he continue to have back pain with movement He said that he had not had any BM because he is constipated Denies any chest pain, palpitation, dizziness and SOB Review of Systems Review of Systems: All systems reviewed & are unremarkable except as noted in Subjective Physical Exam Physical Exam: General- No acute distress Head- atraumatic Eyes- PERRL, EOMI, ENT- oropharynx clear Neck- supple, no JVD Lungs- clear to auscultation Heart- regular rhythm; no murmur Abdomen- normal bowel sounds, soft, nontender Extremities- no calf tenderness Neuro- alert, oriented x 3; PERRL, EOMI; no facial palsy; no dysarthria Skin- warm & dry Results & Data Results & Data ([facility]) Vital Signs (Past 12 Hours) Vital Signs Temp Pulse Resp BP Pulse Ox O2 Del Method O2 Flow Rate 01/29/22 14:00 36.6 C 58 L 18 134/83 97 Room Air 01/29/22 11:50 36.3 C L 58 L 16 138/86 97 Room Air 01/29/22 11:31 56 L 16 129/81 96 Room Air 01/29/22 11:13 56 L 16 127/77 92 Room Air 01/29/22 10:58 55 L 16 114/86 100 Oxymask 8 01/29/22 10:03 36.2 C L 57 L 22 123/72 95 Room Air 01/29/22 07:38 36.4 C L 57 L 18 105/66 94 Room Air
[2022-01-29] MEDS: ROSUVASTATIN CALCIUM 20 MG TAB PO SCH (22:30)
[2022-01-29] MEDS: traZODone HCL 50 MG TAB PO SCH (22:30)
[2022-01-30] MEDS: HYDROmorphone INJ 0.5 MG/0.5 ML SYR IV PRN ×6 (01:15→23:23)
[2022-01-30] MEDS: ACETAMINOPHEN 500 MG TAB PO SCH ×3 (06:20→22:25)
[2022-01-30 07:20] LABS: Hematocrit (blood only) 36.7 % (40.1-51.0); Hemoglobin 12.8 g/dl (14.0-18.0); Mean Corpuscular Hemoglobin 32.9 pg (25.0-34.0); Mean Corpuscular Hgb Conc 34.9 g/dL (32.0-36.0); Mean Corpuscular Volume 94.3 fL (80.0-100.0); Mean Platelet Volume 8.6 fL (9.4-12.4); Platelet Count 125 K/uL (130-400); RDW Coefficient of Variation 13.2 % (11.5-14.5); RDW Standard Deviation 45.1 fL (36.4-46.3); Red Blood Count 3.89 M/uL (4.63-6.08); White Blood Count 5.31 K/ul (4.8-10.8)
[2022-01-30] MEDS: PANTOprazole 40 MG in SYRINGE 0 ML IV SCH (08:02)
[2022-01-30] MEDS: TOPIRAMATE 25 MG TAB PO SCH ×3 (08:03→22:22)
[2022-01-30] MEDS: GABAPENTIN 300 MG CAP PO SCH ×2 (08:03→22:23)
[2022-01-30] MEDS: carvediloL 25 MG TAB PO SCH ×2 (08:03→22:25)
[2022-01-30] MEDS: TAMSULOSIN HCL 0.4 MG CAP PO SCH (08:04)
[2022-01-30] MEDS: amLODIPine BESYLATE 5 MG TAB PO SCH (08:04)
[2022-01-30] MEDS: lisinopril 40 MG TAB PO SCH (08:04)
[2022-01-30] MEDS: LIDOCAINE 5% 1 PATCH TD SCH (08:05)
[2022-01-30] MEDS: DULoxetine HCL 60 MG CAP PO SCH (08:05)
[2022-01-30] MEDS: CLOPIDOGREL BISULFATE 75 MG TAB PO SCH (08:23)
[2022-01-30] MEDS: clonazePAM 1 MG TAB PO SCH ×3 (08:23→22:22)
[2022-01-30] MEDS ORDERED: methylPREDNISolone 4 MG TAB, 6 DAY TAPER PO SCH (08:45)
[2022-01-30] MEDS: oxyCODONE HCL IR 5 MG TAB (IMMEDIATE RELEASE) PO PRN ×2 (10:07→18:25)
[2022-01-30] MEDS: methylPREDNISolone 4 MG TAB PO SCH ×4 (10:16→22:24)
--- NOTE | 2022-01-30 15:41 | Hospitalist Progress Note ---
Date of Service January 30, 2022 Assessment & Plan (1) Intractable back pain: Plan: Patient presenting from home with reports of worsening back pain over the past 3 weeks. History of prior neck and back surgeries with residual chronic pain syndrome. In the ED, CT lumbar spine shows L5 laminectomy. Posterior interbody birgit and screw fusion with discectomy at L5-S1. The hardware appears intact. Moderate to advanced multilevel anterior endplate predominant spondylitic spurring with mostly mild multilevel vertebral disc space narrowing and moderate facet arthrosis. No acute fracture or subluxation identified. No paravertebral edema identified. Multilevel posterior annular disc bulging. There is at least moderate central canal stenosis at L3-L4 and L4-L5. Continue pain control with Tylenol, Lidoderm patch, gabapentin as needed oxyco done and morphine for breakthrough pain. Ortho on board recommended no surgical indication Pain management on board Plan for L4-5 interlaminar epidural steroid injection on an outpatient basis for pain relief. Continue Oxycodone 5mg and IV Dilaudid for pain relief. Continue chronic Cymbalta 60mg daily and Gabapentin 1200mg four times daily. Medrol dose pack added today PT/OT eval Continue monitor closely (2) GI bleeding: Plan: Patient reports intermittent episodes of black stools over the past 3 months. 3 days ago, patient reports passing dark red blood with clots. No further episodes of bleeding since. Hgb 12.8 today gastro on board EGD done today showed no evidence of new blood or old blood within the stomach. gastro recommended outpatient upper endoscopy and colon in the future since there is no significant drop in hgb Ok from GI standpoint to resume plavix Diet advanced as tolerated FOBT pending- did not have a BM yet Continue monitor H/H (3) CAD (coronary artery disease): Plan: Remote history of prior stenting Clopidogrel on hold due to possible GI bleeding Continue statin and beta-shamar Continue plavix (4) HTN (hypertension): Plan: BP controlled, continue amlodipine, carvedilol DVT prophylaxis SCDs due to possible GI bleeding Admission and Anticipated Discharge Date Admission Date: January 29, 2022 Subjective Pt was seen and examined for follow up of back pain and dark stool Lying in bed with no acute distress He said that he continue to have back pain he continue to have no BM Denies any chest pain, palpitation, dizziness and SOB Review of Systems Review of Systems: All systems reviewed & are unremarkable except as noted in Subjective Physical Exam Physical Exam: General- No acute distress Head- atraumatic Eyes- PERRL, EOMI, ENT- oropharynx clear Neck- supple, no JVD Lungs- clear to auscultation Heart- regular rhythm; no murmur Abdomen- normal bowel sounds, soft, nontender Extremities- no calf tenderness Neuro- alert, oriented x 3; PERRL, EOMI; no facial palsy; no dysarthria Skin- warm & dry Results & Data Results & Data ([facility]) Vital Signs (Past 12 Hours) Vital Signs Temp Pulse Resp BP Pulse Ox O2 Del Method 01/30/22 15:25 36.4 C L 65 18 120/76 95 Room Air 01/30/22 07:40 Room Air 01/30/22 08:00 36.4 C L 68 16 127/84 94 Room Air
[2022-01-30] MEDS ORDERED: bisacodyL 10 MG SUPP PR ONE (16:45)
[2022-01-30] MEDS: ROSUVASTATIN CALCIUM 20 MG TAB PO SCH (22:22)
[2022-01-30] MEDS: PANTOprazole 40 MG TAB PO SCH (22:26)
[2022-01-30] MEDS: traZODone HCL 50 MG TAB PO SCH (22:26)
[2022-01-31] MEDS: HYDROmorphone INJ 0.5 MG/0.5 ML SYR IV PRN ×5 (05:56→23:51)
[2022-01-31] MEDS: ACETAMINOPHEN 500 MG TAB PO SCH ×3 (05:56→20:20)
[2022-01-31] MEDS: TOPIRAMATE 25 MG TAB PO SCH ×3 (07:55→20:19)
[2022-01-31] MEDS: GABAPENTIN 300 MG CAP PO SCH ×2 (07:55→20:22)
[2022-01-31] MEDS: PANTOprazole 40 MG TAB PO SCH ×2 (07:55→20:21)
[2022-01-31] MEDS: carvediloL 25 MG TAB PO SCH ×2 (07:55→20:22)
[2022-01-31] MEDS: clonazePAM 1 MG TAB PO SCH ×3 (07:58→20:27)
[2022-01-31] MEDS: methylPREDNISolone 4 MG TAB PO SCH ×3 (08:03→16:05)
[2022-01-31] MEDS: amLODIPine BESYLATE 5 MG TAB PO SCH (08:39)
[2022-01-31] MEDS: lisinopril 40 MG TAB PO SCH (08:39)
[2022-01-31] MEDS: DULoxetine HCL 60 MG CAP PO SCH (08:39)
[2022-01-31] MEDS: TAMSULOSIN HCL 0.4 MG CAP PO SCH (08:39)
[2022-01-31] MEDS: CLOPIDOGREL BISULFATE 75 MG TAB PO SCH (08:39)
[2022-01-31] MEDS: LIDOCAINE 5% 1 PATCH TD SCH (08:45)
[2022-01-31] MEDS: oxyCODONE HCL IR 5 MG TAB (IMMEDIATE RELEASE) PO PRN ×2 (09:05→18:25)
--- NOTE | 2022-01-31 18:07 | Hospitalist Progress Note ---
Date of Service January 31, 2022 Assessment & Plan (1) Intractable back pain: Plan: Patient presenting from home with reports of worsening back pain over the past 3 weeks. History of prior neck and back surgeries with residual chronic pain syndrome. In the ED, CT lumbar spine shows L5 laminectomy. Posterior interbody birgit and screw fusion with discectomy at L5-S1. The hardware appears intact. Moderate to advanced multilevel anterior endplate predominant spondylitic spurring with mostly mild multilevel vertebral disc space narrowing and moderate facet arthrosis. No acute fracture or subluxation identified. No paravertebral edema identified. Multilevel posterior annular disc bulging. There is at least moderate central canal stenosis at L3-L4 and L4-L5. Continue pain control with Tylenol, Lidoderm patch, gabapentin as needed oxyco done and morphine for breakthrough pain. Ortho on board recommended no surgical indication Pain management on board Plan for L4-5 interlaminar epidural steroid injection on an outpatient basis for pain relief. Continue Oxycodone 5mg and IV Dilaudid for pain relief. Continue chronic Cymbalta 60mg daily and Gabapentin 1200mg four times daily. Medrol dose pack added today PT/OT eval Continue monitor closely (2) GI bleeding: Plan: Patient reports intermittent episodes of black stools over the past 3 months. 3 days ago, patient reports passing dark red blood with clots. No further episodes of bleeding since. FOBT positive Hgb 12.8 today gastro on board EGD done today showed no evidence of new blood or old blood within the stomach. gastro recommended outpatient upper endoscopy and colon in the future since there is no significant drop in hgb Ok from GI standpoint to continue plavix Case discussed with GI about the positive FOBT that plan for outpatient colonoscopy Diet advanced as tolerated Continue monitor CBC (3) CAD (coronary artery disease): Plan: Remote history of prior stenting Clopidogrel on hold due to possible GI bleeding Continue statin and beta-shamar Continue plavix (4) HTN (hypertension): Plan: BP controlled, continue amlodipine, carvedilol DVT prophylaxis SCDs due to possible GI bleeding Admission and Anticipated Discharge Date Admission Date: January 29, 2022 Subjective Pt was seen and examined for follow up of back pain and dark stool Lying in bed with no acute distress He said that he continue to have back pain He said that he had small bm movement yesterday Denies any chest pain, palpitation, dizziness and SOB Review of Systems Review of Systems: All systems reviewed & are unremarkable except as noted in Subjective Physical Exam Physical Exam: General- No acute distress Head- atraumatic Eyes- PERRL, EOMI, ENT- oropharynx clear Neck- supple, no JVD Lungs- clear to auscultation Heart- regular rhythm; no murmur Abdomen- normal bowel sounds, soft, nontender Extremities- no calf tenderness Neuro- alert, oriented x 3; PERRL, EOMI; no facial palsy; no dysarthria Skin- warm & dry Results & Data Results & Data ([facility]) Vital Signs (Past 12 Hours) Vital Signs Temp Pulse Pulse Resp BP Pulse Ox O2 Del Method 01/31/22 16:00 36.5 C 65 18 139/81 94 Room Air 01/31/22 08:09 36.4 C L 67 20 131/82 94 Room Air
[2022-01-31] MEDS: traZODone HCL 50 MG TAB PO SCH (20:19)
[2022-01-31] MEDS: ROSUVASTATIN CALCIUM 20 MG TAB PO SCH (20:23)
[2022-01-31] MEDS ORDERED: methylPREDNISolone 4 MG TAB PO SCH (21:00)
[2022-02-01] MEDS: methylPREDNISolone 4 MG TAB PO SCH ×2 (06:00→12:17)
[2022-02-01] MEDS: ACETAMINOPHEN 500 MG TAB PO SCH ×2 (06:01→14:27)
[2022-02-01] MEDS: CLOPIDOGREL BISULFATE 75 MG TAB PO SCH (07:51)
[2022-02-01] MEDS: GABAPENTIN 300 MG CAP PO SCH (07:52)
[2022-02-01] MEDS: TAMSULOSIN HCL 0.4 MG CAP PO SCH (07:52)
[2022-02-01] MEDS: TOPIRAMATE 25 MG TAB PO SCH ×2 (07:52→14:27)
[2022-02-01] MEDS: carvediloL 25 MG TAB PO SCH (07:52)
[2022-02-01] MEDS: PANTOprazole 40 MG TAB PO SCH (07:52)
[2022-02-01] MEDS: lisinopril 40 MG TAB PO SCH (07:53)
[2022-02-01] MEDS: amLODIPine BESYLATE 5 MG TAB PO SCH (07:53)
[2022-02-01] MEDS: DULoxetine HCL 60 MG CAP PO SCH (07:54)
[2022-02-01] MEDS: clonazePAM 1 MG TAB PO SCH ×2 (07:54→14:28)
[2022-02-01] MEDS: LIDOCAINE 5% 1 PATCH TD SCH (07:54)
[2022-02-01] MEDS: oxyCODONE HCL IR 5 MG TAB (IMMEDIATE RELEASE) PO PRN (08:05)
[2022-02-01 08:59] LABS: Hematocrit (blood only) 36.5 % (40.1-51.0); Hemoglobin 12.9 g/dl (14.0-18.0); Mean Corpuscular Hemoglobin 32.8 pg (25.0-34.0); Mean Corpuscular Hgb Conc 35.3 g/dL (32.0-36.0); Mean Corpuscular Volume 92.9 fL (80.0-100.0); Mean Platelet Volume 9.3 fL (9.4-12.4); Platelet Count 159 K/uL (130-400); RDW Coefficient of Variation 13.2 % (11.5-14.5); RDW Standard Deviation 45.1 fL (36.4-46.3); Red Blood Count 3.93 M/uL (4.63-6.08); White Blood Count 9.71 K/ul (4.8-10.8)
[2022-02-01] MEDS: HYDROmorphone INJ 0.5 MG/0.5 ML SYR IV PRN (12:16)
[2022-02-02] MEDS ORDERED: methylPREDNISolone 4 MG TAB PO SCH (07:00)
[2022-02-03] MEDS ORDERED: methylPREDNISolone 4 MG TAB PO SCH (07:00)
--- NOTE | 2022-02-03 08:35 | Discharge Summary ---
Date of Service February 03, 2022 Admission HPI Per Admitting Provider 66-year-old male with PMH HLD, CAD s/p previous stenting (details unknown), sleep apnea not on CPAP, HTN, s/p previous back and neck surgeries with chronic back pain followed by the pain clinic, and other problems listed below who presents to the ED for evaluation of intractable back pain. Patient reports increasing lower back pain over the past 3 weeks. Patient reports he is followed by the pain clinic and takes hydrocodone/acetaminophen. Patient reports that pain is typically controlled with the hydrocodone however recently he has not been able to get any relief. Patient reports chronic lower extremity weakness which is unchanged from baseline. Patient denies any bowel or bladder dysfunction. Patient incidentally reports episodes of black stools over the past few months. 3 days ago, patient reports passing dark red blood with clots. No further bleeding since. Patient denies chest pain and shortness of breath. No lightheadedness, dizziness, diaphoresis, syncopal events. In the ED, CT lumbar spine shows L5 laminectomy. Posterior interbody birgit and screw fusion with discectomy at L5-S1. The hardware appears intact. Moderate to advanced multilevel anterior endplate predominant spondylitic spurring with mostly mild multilevel vertebral disc space narrowing and moderate facet arthrosis. No acute fracture or subluxation identified. No paravertebral edema identified. Multileve l posterior annular disc bulging. There is at least moderate central canal stenosis at L3-L4 and L4-L5. CT ABD/pelvis unremarkable for acute findings. Labs are unremarkable. Patient was given p.o. Tylenol, IV hydromorphone, Lidoderm patch, IV Zofran. Admission Exam Per Admitting Provider Constitutional: WD/WN, vitals as above Eyes: PERRL, conjunctivae normal, anicteric sclerae ENMT: external ear and nose normal, oropharynx normal Respiratory: normal respiratory effort, lungs clear to auscultation Cardiovascular: Rate/Rhythm: regular rate and regular rhythm Vessels: normal peripheral pulses Extremities: no edema Gastrointestinal (Abdomen): normal bowel sounds, soft, nontender, no hepatosplenomegaly Musculoskeletal: Pedal pushes and pulls strong bilaterally, patient reports increased back pain with lifting of right leg Skin: no rashes, warm and dry Neurologic: PERRL, EOMI, accommodation nl, no face palsy, no dysarthria Psychiatric: A+Ox3, euthymic affect Principal Diagnosis Intractable back pain: GI bleeding: CAD (coronary artery disease): HTN (hypertension) Discharge Exam General- No acute distress Head- atraumatic Eyes- PERRL, EOMI, ENT- oropharynx clear Neck- supple, no JVD Lungs- clear to auscultation Heart- regular rhythm; no murmur Abdomen- normal bowel sounds, soft, nontender Extremities- no calf tenderness Neuro- alert, oriented x 3; PERRL, EOMI; no facial palsy; no dysarthria Skin- warm & dry Discharge Data Allergies Allergy/AdvReac Type Severity Reaction Status Date / Time aspirin AdvReac Mild UPSET Verified 01/03/22 13:20 STOMACH Consultations 01/27/22 18:02 ED Decision to Admit Stat 01/27/22 22:14 Consult Gastroenterology Routine Consult Orthopedic Surgery Routine Consult Pain Management Routine Procedures Performed Operation Date: 01/29/22 16:00 Actual Procedures p Esophagogastroduodenoscopy - Garth De Guzman, Ordered Studies 01/27/22 15:42 CT abd pelvis IV con only Stat CT lumbar spine w con Stat 01/27/22 22:14 MRI Lumbar Spine [MR lumbar spine wo/w con] Routine Laboratory Results WBC 9.71 K/ul (4.8-10.8) 02/01/22 08:11 RBC 3.93 M/uL (4.63-6.08) L 02/01/22 08:11 Hgb 12.9 g/dl (14.0-18.0) L 02/01/22 08:11 Hct 36.5 % (40.1-51.0) L 02/01/22 08:11 MCV 92.9 fL (80.0-100.0) 02/01/22 08:11 MCH 32.8 pg (25.0-34.0) 02/01/22 08:11 MCHC 35.3 g/dL (32.0-36.0) 02/01/22 08:11 RDW Std Deviation 45.1 fL (36.4-46.3) 02/01/22 08:11 RDW Coeff of Hanh 13.2 % (11.5-14.5) 02/01/22 08:11 Plt Count 159 K/uL (130-400) 02/01/22 08:11 MPV 9.3 fL (9.4-12.4) L 02/01/22 08:11 Immature Gran % (Auto) 3.8 % 01/27/22 16:13 Neut % (Auto) 65.4 % 01/27/22 16:13 Lymph % (Auto) 21.2 % 01/27/22 16:13 [place] % (Auto) 7.1 % 01/27/22 16:13 Eos % (Auto) 1.8 % 01/27/22 16:13 Baso % (Auto) 0.7 % 01/27/22 16:13 Neut # (Auto) 4.60 K/uL (1.4-6.5) 01/27/22 16:13 Lymph # (Auto) 1.49 K/uL (1.2-3.4) 01/27/22 16:13 [place] # (Auto) 0.50 K/uL (0.24-0.82) 01/27/22 16:13 Eos # (Auto) 0.13 K/uL (0-0.50) 01/27/22 16:13 Baso # (Auto) 0.05 K/uL (0-0.2) 01/27/22 16:13 Immature Gran # (Auto) 0.27 K/uL (0.00-0.02) H 01/27/22 16:13 PT 10.3 Seconds (9.0-12.0) 01/27/22 16:13 INR 1.0 (0.9-1.1) 01/27/22 16:13 APTT 26.8 Seconds (21.0-31.0) 01/27/22 16:13 PTT Ratio 1.0 01/27/22 16:13 Sodium 140 mmol/L (136-145) 01/28/22 05:57 Potassium 3.6 mmol/L (3.5-5.1) 01/28/22 05:57 Chloride 110 mmol/L (98-107) H 01/28/22 05:57 Carbon Dioxide 24 mmol/L (21-32) 01/28/22 05:57 Anion Gap 6 (3-11) 01/28/22 05:57 BUN 11 mg/dl (6-23) 01/28/22 05:57 Creatinine 0.87 mg/dl (0.6-1.4) 01/28/22 05:57 Est Cr Clr Drug Dosing 94.7 ml/min 01/28/22 05:57 Est GFR ( Amer) 105.0 ml/min 01/28/22 05:57 Est GFR (Non-Af Amer) 90.6 ml/min 01/28/22 05:57 BUN/Creatinine Ratio 12.6 (10-20) 01/28/22 05:57 Glucose 94 mg/dl (70-99(Fasting)) 01/28/22 05:57 Calcium 7.9 mg/dl (8.5-10.1) L 01/28/22 05:57 Total Bilirubin 0.6 mg/dl (0.2-1.0) 01/27/22 16:13 AST 19 U/L (13-39) 01/27/22 16:13 ALT 18 U/L (7-52) 01/27/22 16:13 Alkaline Phosphatase 59 U/L (34-104) 01/27/22 16:13 Total Protein 6.6 gm/dl (6.0-8.3) 01/27/22 16:13 Albumin 4.2 gm/dl (3.4-5.0) 01/27/22 16:13 Globulin 2.4 gm/dl (2.5-4.0) L 01/27/22 16:13 Albumin/Globulin Ratio 1.8 (0.9-2) 01/27/22 16:13 Lipase 23 U/L (11-82) 01/27/22 16:13 Urine Color Yellow 01/28/22 08:15 Urine Appearance Clear (Clear) 01/28/22 08:15 Urine pH 7.0 (4.5-7.5) 01/28/22 08:15 Ur Specific [place] 1.030 (1.000-1.030) 01/28/22 08:15 Urine Protein Negative (Negative) 01/28/22 08:15 Urine Glucose (UA) Negative (Negative) 01/28/22 08:15 Urine Ketones Negative (Negative) 01/28/22 08:15 Urine Blood Negative (Negative) 01/28/22 08:15 Urine Nitrite Negative (Negative) 01/28/22 08:15 Urine Bilirubin Negative (Negative) 01/28/22 08:15 Urine Urobilinogen Negative (Negative) 01/28/22 08:15 Ur Leukocyte Esterase Negative (Negative) 01/28/22 08:15 Stool Occult Bld Scrn Positive (Negative) A 01/30/22 Unknown SARS-CoV-2, RNA, NAAT NEGATIVE (NEGATIVE) 01/27/22 18:56 Blood Type O Positive 01/28/22 05:57 Antibody Screen NEGATIVE 01/28/22 05:57 Crossmatch See Detail 01/28/22 05:57 Impressions Abdomen/Pelvis CT 01/27/22 15:42 CT lumbar spine w con, CT abd pelvis IV con only HISTORY: 66 years-old Male low back pain, into hips. Rectal bleeding acute abdominal trauma back pain with rectal bleeding COMPARISON: Lumbar spine radiographs 11/27/2021 TECHNIQUE: Multiple axial CT images of the abdomen, pelvis and lumbar spine were obtained following the intravenous administration of 78 mL Optiray 350. A dose lowering technique was used consistent with the principals of MARYANRA. FINDINGS: CT LUMBAR SPINE: L5 laminectomy. Posterior interbody birgit and screw fusion with discectomy at L5- S1. The hardware appears intact. Moderate to advanced multilevel anterior endplate predominant spondylitic spurring with mostly mild multilevel vertebral disc space narrowing and moderate facet arthrosis. No acute fracture or subluxation identified. No paravertebral edema identified. Multilevel posterior annular disc bulging. There is at least moderate central canal stenosis at L3-L4 and L4-L5. CT ABDOMEN/PELVIS: The lung bases are generally clear. Coronary artery calcifications. No pneumatosis or pneumoperitoneum. Unremarkable spleen, mildly atrophic pancreas and adrenal glands which demonstrate mild fatty replacement. The gallbladder is within normal limits. Hepatic steatosis. Patency of the hepatic and portal veins. There is mild nonspecific bilateral perinephric stranding. Mild cortical thinning of the kidneys. No hydronephrosis. Prostamegaly. Small fat filled inguinal hernias. Mild urinary bladder wall thickening with partial distention. Atherosclerosis of the aorta without aneurysm. No lymphadenopathy identified. Small duodenal diverticulum. No bowel obstruction or bowel wall thickening. Colonic diverticulosis without acute diverticulitis. Normal appendix. Unremarkable soft tissues. Right hip arthroplasty. Fusion hardware at L5-S1. Healed chronic anterior rib fractures. No acute fracture identified. IMPRESSION: 1. No acute intra-abdominal or intrapelvic abnormality. 2. No bowel obstruction or bowel wall thickening. Normal appendix. 3. Colonic diverticulosis. 4. No acute fracture identified. 5. Postoperative and degenerative changes of the lumbar spine as above. ACT 112: Negative or not required by law. The above report was generated using voice recognition software. It may contain grammatical, syntax or spelling errors. Electronically signed by: Reggie Talavera M.D. 01/27/2022 5:[address] 01/27/22 15:42 CT lumbar spine w con, CT abd pelvis IV con only HISTORY: 66 years-old Male low back pain, into hips. Rectal bleeding acute abdominal trauma back pain with rectal bleeding COMPARISON: Lumbar spine radiographs 11/27/2021 TECHNIQUE: Multiple axial CT images of the abdomen, pelvis and lumbar spine were obtained following the intravenous administration of 78 mL Optiray 350. A dose lowering technique was used consistent with the principals of KEVIN. FINDINGS: CT LUMBAR SPINE: L5 laminectomy. Posterior interbody birgit and screw fusion with discectomy at L5- S1. The hardware appears intact. Moderate to advanced multilevel anterior endplate predominant spondylitic spurring with mostly mild multilevel vertebral disc space narrowing and moderate facet arthrosis. No acute fracture or subluxation identified. No paravertebral edema identified. Multilevel posterior annular disc bulging. There is at least moderate central canal stenosis at L3-L4 and L4-L5. CT ABDOMEN/PELVIS: The lung bases are generally clear. Coronary artery calcifications. No pneumatosis or pneumoperitoneum. Unremarkable spleen, mildly atrophic pancreas and adrenal glands which demonstrate mild fatty replacement. The gallbladder is within normal limits. Hepatic steatosis. Patency of the hepatic and portal veins. There is mild nonspecific bilateral perinephric stranding. Mild cortical thinning of the kidneys. No hydronephrosis. Prostamegaly. Small fat filled inguinal hernias. Mild urinary bladder wall thickening with partial distention. Atherosclerosis of the aorta without aneurysm. No lymphadenopathy identified. Small duodenal diverticulum. No bowel obstruction or bowel wall thickening. Colonic diverticulosis without acute diverticulitis. Normal appendix. Unremarkable soft tissues. Right hip arthroplasty. Fusion hardware at L5-S1. Healed chronic anterior rib fractures. No acute fracture identified. IMPRESSION: 1. No acute intra-abdominal or intrapelvic abnormality. 2. No bowel obstruction or bowel wall thickening. Normal appendix. 3. Colonic diverticulosis. 4. No acute fracture identified. 5. Postoperative and degenerative changes of the lumbar spine as above. ACT 112: Negative or not required by law. The above report was generated using voice recognition software. It may contain grammatical, syntax or spelling errors. Electronically signed by: Reggie Talavera M.D. 01/27/2022 5:38 PM Lumbar Spine MRI 01/27/22 22:14 MR lumbar spine wo/w con CLINICAL HISTORY: intractable back pain TECHNIQUE: 3 plane localizer images, sagittal T2, sagittal T1, sagittal STIR, axial T1, axial T2 along with postcontrast axial T1 and sagittal T1 fat- saturated sequences were obtained of the lumbar spine, before and after intravenous administration of 12 mL of MultiHance. Comparison: Comparison is made to MRI spine 01/17/[address] abdomen pelvis 01/27/[address] lumbar spine 01/27/2022 FINDINGS: The alignment is anatomical. Degenerative changes are noted in the discs and vertebral bodies. Posterior fixation hardware is seen at L5-S1. L1-L2: No significant abnormality. L2-L3: Broad-based posterior disc bulge is seen with mild canal stenosis. No significant neuroforaminal stenosis. L3-L4: There is a broad-based posterior disc bulge with moderate canal stenosis, AP diameter 7 mm. There is mild bilateral neuroforaminal stenosis. L4-L5: There is a broad-based posterior disc bulge with moderate canal stenosis, AP diameter 8 mm, and severe bilateral neural foraminal stenosis. L5-S1: Status post decompression without significant canal or neuroforaminal stenosis. The spinal ligaments are intact, without evidence of disruption or abnormal signal intensity. The spinal cord is normal in signal intensity and there is no evidence of cord contusion. There is no evidence of an extradural, intradural, extramedullary or intramedullary lesion. A small amount of soft tissue edema is noted posteriorly. IMPRESSION: Multilevel degenerative changes are seen. There is up to moderate canal stenosis with AP diameter 7 mm and severe bilateral neural foraminal stenosis. These degenerative findings are increased from prior MRI performed 2007. ACT 112: Negative or not required by law. Electronically signed by: Arturo Joe M.D. 01/28/2022 6:53 PM Hospital Course (1) Intractable back pain: Patient presenting from home with reports of worsening back pain over the past 3 weeks. History of prior neck and back surgeries with residual chronic pain syndrome. In the ED, CT lumbar spine shows L5 laminectomy. Posterior interbody birgit and screw fusion with discectomy at L5-S1. The hardware appears intact. Moderate to advanced multilevel anterior endplate predominant spondylitic spurring with mostly mild multilevel vertebral disc space narrowing and moderate facet arthrosis. No acute fracture or subluxation identified. No paravertebral edema identified. Multilevel posterior annular disc bulging. There is at least moderate central canal stenosis at L3-L4 and L4-L5. Continue pain control with Tylenol, Lidoderm patch, gabapentin as needed oxycodone and morphine for breakthrough pain. Ortho on board recommended no surgical indication Pain management on board Plan for L4-5 interlaminar epidural steroid injection on an outpatient basis for pain relief. Continue Oxycodone 5mg and IV Dilaudid for pain relief. Continue chronic Cymbalta 60mg daily and Gabapentin 1200mg four times daily. Medrol dose pack added today PT/OT eval Continue monitor closely (2) GI bleeding: Patient reports intermittent episodes of black stools over the past 3 months. 3 days ago, patient reports passing dark red blood with clots. No further episodes of bleeding since. FOBT positive Hgb 12.8 today gastro on board EGD done today showed no evidence of new blood or old blood within the stomach. gastro recommended outpatient upper endoscopy and colon in the future since there is no significant drop in hgb Ok from GI standpoint to continue plavix Case discussed with GI about the positive FOBT that plan for outpatient colonoscopy Diet advanced as tolerated OK from GI standpoint to discharge home Continue monitor CBC (3) CAD (coronary artery disease): Remote history of prior stenting Clopidogrel on hold due to possible GI bleeding Continue statin and beta-shamar Continue plavix (4) HTN (hypertension): BP controlled, continue amlodipine, carvedilol DVT prophylaxis SCDs due to possible GI bleeding Total Time Total Time Spent Total Time Spent (In Minutes): 35 minutes Discharge Plan Discharge Items Patient Disposition: Home - Home Health Services Reason For Visit: INTRACTABLE BACK PAIN Discharge Diagnosis: Intractable back pain: GI bleeding: CAD (coronary artery disease): HTN (hypertension): Condition on Discharge: Good Activity: Resume your previous activity Non-emergency contact: Primary Care Provider Call non-emergency contact if: you have any medication questions Follow-up/Referrals: Noy Gaxiola MD [Primary Care Provider] - Diet: Heart Healthy Addtl Attending Provider Instructions: Follow with your primary care provider Dr. Gaxiola within 1 week Follow up with [facility] [place] [facility] [place] to arrange for outpatient colonoscopy Follow up with [facility] pain management to evaluate for L4-5 interlaminar epidural steroid injection on an outpatient basis for pain relief Check CBC in 1 week to monitor your hemoglobin Avoid any NSAID such as Motrin, Aleve, naproxen, ibuprofen, Advil, .... due to increase risk of bleeding Continue Medrol dose pack Do not drive or operate any machine while on oxycodone or other narcotic Please hold next dose of oxycodone if you become drowsy or lethargy fall precaution Seek medical attention if your symptoms worsening Pending Studies at Discharge: No Stand-Alone Forms: [facility], Smoking Cessation Medications and DC Order Prescriptions: New methylprednisolone 4 mg Tablet 4 mg PO UD Qty: 8 0RF Rx Instructions: 02/01- take 1 tab after dinner and bedtime, then 1 tab TID on 02/02, then 1 tab BID on 02/03 then 1 tab once daily on 02/04 then stop bisacodyl [Gentle Laxative (bisacodyl)] 5 mg Tablet,Delayed Release (Dr/Ec) 5 mg PO DAILY PRN (Reason: constipation) Qty: 30 0RF oxycodone 5 mg Tablet 5 mg PO Q8H PRN (Reason: pain) Qty: 10 0RF Rx Instructions: please hold for lethargy and drowsiness Continued sennosides [senna] 8.6 mg tablet 8.6 mg PO BID PRN (Reason: Constipation) clopidogrel [Plavix] 75 mg tablet 75 mg PO DAILY lisinopril 40 mg tablet 40 mg PO DAILY clonazepam [Klonopin] 1 mg tablet 1 mg PO TID trazodone 150 mg tablet 75 mg PO HS tamsulosin [Flomax] 0.4 mg capsule 0.4 mg PO DAILY duloxetine [Cymbalta] 60 mg capsule,delayed release(DR/EC) 60 mg PO DAILY rosuvastatin [Crestor] 20 mg tablet 20 mg PO HS carvedilol 25 mg tablet 25 mg PO BID gabapentin 600 mg tablet 900 mg PO BID topiramate 25 mg tablet 25 mg PO TID amlodipine 10 mg tablet 10 mg PO DAILY pantoprazole 40 mg tablet,delayed release (DR/EC) 40 mg PO DAILY Discontinued hydrocodone-acetaminophen 5-325 mg tablet 1 tab PO TID Discharge Orders: Discharge Order (Routine); Ordered 02/01/22 Ordered By: Shilpa Li Admission Data Admit Date/Time: 01/29/22 17:43 Attending Provider: Shilpa Li Admit Provider: Shilpa Li Primary Care Provider: Noy Gaxiola Other Providers: Joselyn Walker ; Brody Connor ; Judy Cuevas ; Ryan Brewer ; [facility] ColwichJuan Miguel Other Interventions: Discharge Summary Assessment (RN) Last Done: 02/01/22 12:29
[2022-02-04] MEDS ORDERED: methylPREDNISolone 4 MG TAB PO SCH (07:00)
[2022-02-06] MEDS ORDERED: POLYETHYLENE (MIRALAX) 17 GM PACK ONE (21:05)
== END 2022-02-01 15:52 | disposition home health service (06) ==
LOC: 3N 14:19 → ED 14:19 → SUATTDRO 18:15 → 3N 21:40
DX: M47.26 Other spondylosis with radiculopathy, lumbar region; I25.10 Atherosclerotic heart disease of native coronary artery without angina pectoris; Z20.822 Contact with and (suspected) exposure to COVID-19; Z95.5 Presence of coronary angioplasty implant and graft; M48.061 Spinal stenosis, lumbar region without neurogenic claudication; M96.1 Postlaminectomy syndrome, not elsewhere classified; F17.220 Nicotine dependence, chewing tobacco, uncomplicated; R29.898 Other symptoms and signs involving the musculoskeletal system; Z79.02 Long term (current) use of antithrombotics/antiplatelets; M51.16 Intervertebral disc disorders with radiculopathy, lumbar region; I10 Essential (primary) hypertension; Z88.6 Allergy status to analgesic agent; Z98.1 Arthrodesis status; M46.06 Spinal enthesopathy, lumbar region; E78.5 Hyperlipidemia, unspecified; Z79.899 Other long term (current) drug therapy; K92.1 Melena; Z79.891 Long term (current) use of opiate analgesic; G47.33 Obstructive sleep apnea (adult) (pediatric)

== ENCOUNTER 2022-08-25 12:08 | Inpatient (IN) ==
[2022-08-25 13:20] LABS: Alanine Aminotransferase 20 U/L (7-52); Albumin Globulin Ratio 1.5 (0.9-2); Alkaline Phosphatase 60 U/L (34-104); Anion Gap 8 (3-11); Aspartate Aminotransferase 22 U/L (13-39); BUN Creatinine Ratio 10.2 (10-20); Bilirubin,Total 0.5 mg/dl (0.2-1.0); Blood Urea Nitrogen 10 mg/dl (6-23); Calcium 8.7 mg/dl (8.6-10.3); Carbon Dioxide 23 mmol/L (21-32); Chloride 107 mmol/L (98-107); Creatinine Clr Calc Pharmacy 84.8 ml/min; Est GFR (African American) 92.7 ml/min; Globulin 2.7 gm/dl (2.5-4.0); Glucose 194 mg/dl (70-99(Fasting)); Potassium 3.8 mmol/L (3.5-5.1); Sodium 138 mmol/L (136-145); Total Protein 6.7 gm/dl (6.0-8.3)
[2022-08-25 13:25] LABS: Troponin I High Sensitivity < 2.3 pg/ml (0-20)
[2022-08-25] MEDS ORDERED: SODIUM CHLORIDE 0.9% 1000ML 1,000 ML IV ONE (13:40)
--- NOTE | 2022-08-25 13:49 | XRay Report ---
XR chest 1V portable CLINICAL HISTORY: Chest pain, nonspecific TECHNIQUE: Single frontal radiograph of the chest was obtained. Comparison: Comparison is made to chest radiograph 07/23/2021 FINDINGS: No lines and tubes are seen. Cardiomegaly is noted. The lungs are clear. No evidence of pleural effus ion or pneumothorax. Cervical spinal fixation hardware is seen. IMPRESSION: No acute abnormalities and in particular no radiographic evidence of pneumonia. ACT 112: Negative or not required by law. Electronically signed by: Arturo Joe M.D. 08/25/2022 1:47 PM
[2022-08-25 14:07] LABS: Basophils # (auto) 0.05 K/uL (0-0.2); Basophils % (auto) 0.6 %; Eosinophils # (auto) 0.32 K/uL (0-0.50); Eosinophils % (auto) 4.1 %; Hematocrit (blood only) 35.8 % (42.0-52.0); Hemoglobin 11.9 g/dl (14.0-18.0); Immature Granulocytes # (auto) 0.09 K/uL (0.01-0.20); Immature Granulocytes % (auto) 1.1 %; Lymphocytes # (auto) 1.29 K/uL (1.2-3.4); Lymphocytes % (auto) 16.5 %; Mean Corpuscular Hemoglobin 28.9 pg (25.0-34.0); Mean Corpuscular Hgb Conc 33.2 g/dL (32.0-36.0); Mean Corpuscular Volume 86.9 fL (80.0-100.0); Monocytes % (auto) 8.9 %; Neutrophils # (auto) 5.38 K/uL (1.40-6.50); Neutrophils % (auto) 68.8 %; Platelet Count 171 K/uL (130-400); RDW Coefficient of Variation 14.7 % (11.5-14.5); RDW Standard Deviation 46.4 fL (36.4-46.3); Red Blood Count 4.12 M/uL (4.70-6.10); White Blood Count 7.83 K/ul (4.8-10.8)
[2022-08-25 14:39] LABS: INR 0.9 (0.9-1.1); Partial Thromboplastin Ratio 0.9; Partial Thromboplastin Time 26.2 Seconds (21.0-31.0); Prothrombin Time 10.4 Seconds (9.0-12.0)
[2022-08-25] MEDS ORDERED: OPTIRAY 320 125ml IV ONE (14:55)
--- NOTE | 2022-08-25 15:37 | CT Scan Report ---
CT angio chest PE protocol CLINICAL HISTORY: CP, h/o PE, r/o PE TECHNIQUE: Multidetector row helical CT of the chest was performed with angiographic protocol. Chavez l and sagittal reformations were obtained. Coronal and sagittal MIPS were obtained from the axial miguel a set and were submitted for review. Automated dose lowering techniques and/or adjustment according to patient size were utilized for this exam. Comparison: Comparison is made to CTA chest 10/04/2011 FINDINGS: Lungs and pleura: Atelectasis versus scarring is seen in the dependent portions of the lungs. Heart and pericardium: Heart size is normal. No pericardial effusion. Vessels: Linear density is seen in the right lower lobe artery. Otherwise no evidence of pulmonary em bolus. Mediastinum and shawna: Unremarkable. Chest wall and lower neck: Unremarkable. Abdomen: Unremarkable. Bones: Degenerative changes in the thoracic spine. IMPRESSION: No acute pulmonary embolus is seen. Linear filling defect in the right lower lobar artery may represe nt remote prior pulmonary embolus. ACT 112: Negative or not required by law. Electronically signed by: Arturo Joe M.D. 08/25/2022 3:35 PM
[2022-08-25] MEDS ORDERED: HYDROCODONE/ACETAMOPHEN 5/325MG TAB PO STA (16:22)
--- NOTE | 2022-08-25 16:59 | Emergency Department Note ---
Impression & Plan Right-sided chest pain, Opioid dependence, Cervical radiculopathy, CAD (coronary artery disease), History of pulmonary embolism ED Provider Note NAME: ARMEN CHEEMA AGE: 67 SEX: M ARRIVES VIA: Walk-In INFORMANT: Patient ED PROVIDER(S): Brian Vazquez MD CHIEF COMPLAINT: Chest pain, shortness of breath. PLAN: Disposition: Admit MEDICAL DECISION MAKING: The patient is a pleasant 67-year-old gentleman with a past medical history of chronic pain, history of cervical decompression, opioid dependence, prior history of pulmonary embolism, history of CAD with history of IN on Plavix who presents to the emergency department with right-sided chest pain shortness of breath for the past week where he reports the pain is reminiscent of his prior pulmonary embolism. He also reports that his chronic pain has been persistent despite his chronic narcotics. He does follow with pain clinic. He reports he is has an upcoming surgery for his neck. He denies any cough, congestion, nausea, vomiting, diarrhea or urinary symptoms. On arrival the patient is fatigued appearing but no acute distress, afebrile with stable vital signs. O2 saturations 97% on room air. EKG without overt acute ischemia. Chest x-ray negative for acute cardiopulmonary process. WBC and platelets within normal limits. H/H similar to prior. Chemistry without metabolic acidosis. Electrolytes LFTs unremarkable. High-sensitivity troponin is undetectable. CT of the chest was performed and was negative for acute pulmonary embolus though note is made of linear filling defect in the rig ht lower lobar artery which may represent remote prior PE which would correlate with the patient's history. I did review these findings with the patient at the bedside. Given his chest pain and shortness of breath are newly occurring question as to whether CT findings are chronic versus newly developing PE. Patient agrees with plan for admission for further management. Case was discussed with Stacey Gillis, with Dr. Celaya [facility] hospitalist who will evaluate the patient for admission. Further management including decision for anticoagulation per admitting team. Triage Nursing notes reviewed and agree them. Prior/outside medical records reviewed Vital Signs: reviewed Differential diagnosis: Cardiac ischemia, aortic dissection, pulmonary embolism, pneumothorax, pneumonia, pericarditis, myocarditis, esophageal rupture, GERD, cholecystitis, pancreatitis, musculoskeletal, as well as other pathologies. ER treatment provided: See below. Diagnostics interpreted by me: ECG: Normal sinus rhythm, 71 bpm, no ectopy, no overt ST elevation or depression, QTc 425, QRS 90 Cardiac Monitoring: An order for continuous cardiac monitoring was placed and demonstrated Normal sinus rhythm, 71 bpm, no ectopy Laboratory studies: See below Imaging studies: See below Consultation(s): Case was discussed with Stacey Gillis, with Dr. Celaya, [facility] hospitalist who will evaluate the patient for admission. HPI: The patient is a pleasant 67-year-old gentleman with a past medical history of chronic pain, history of cervical decompression, opioid dependence, prior history of pulmonary embolism, history of CAD with history of IN on Plavix who presents to the emergency department with right-sided chest pain shortness of breath for the past week where he reports the pain is reminiscent of his prior pulmonary embolism. He also reports that his chronic pain has been persistent despite his chronic narcotics. He does follow with pain clinic. He reports he is has an upcoming surgery for his neck. He denies any cough, congestion, nausea, vomiting, diarrhea or urinary symptoms. ROS: See above HPI for pertinent positives & negatives. A total of 10 systems reviewed and were otherwise negative. VITALS:See Below PHYSICAL EXAMINATION: GENERAL: Awake, alert, fatigued-appearing, in no distress, BMI 33.2 HENT: Normocephalic, atraumatic. Oropharynx with dry mucous membranes and otherwise unremarkable. EYES: Normal conjunctiva. Sclera non-icteric. NECK: Supple. No nuchal rigidity. FROM. No JVD. RESPIRATORY: Clear to auscultation. CARDIAC: Regular rate, normal rhythm. Extremities warm and well perfused. Pulses equal. ABDOMEN: Soft, non-distended. No tenderness to palpation. No rebound or g uarding. No masses. RECTAL: Deferred. MUSCULOSKELETAL: Chest examination reveals no tenderness. The back is symmetrical on inspection without obvious abnormality. There is no CVA tenderness to palpation. No joint edema. LOWER EXTREMITIES: Calves are equal size bilaterally and non-tender. No edema. N o discoloration. NEURO: Normal sensorium. No sensory or motor deficits noted. SKIN: No rash or jaundice noted. ED COURSE: Critical Care: I have personally spent greater than 45 minutes of critical care time in the direct management of this patient. This includes bedside care, interpretation of diagnostic studies, and testing, discussion with consultants, patient, and fa gisella members, and other required patient management activities. This 45 minutes is in excess of all separately billable procedures. Brian Vazquez MD Past Med/Surg History Medical History (Updated 08/25/22 @ 22:46 by Brian Vazquez MD) BPH (benign prostatic hyperplasia) CAD (coronary artery disease) s/p FRANCY to RCA 2012, follows with [facility] cardiology Cervical disc disorder Cervical post-laminectomy syndrome Cervical radiculopathy Chronic hip pain after total replacement of right hip joint Deep vein thrombosis 2020, following fall from ladder Depression Dyslipidemia Dystonic movements Esophageal dysmotility GERD (gastroesophageal reflux disease) History of GI bleed History of pulmonary embolism HTN (hypertension) controlled, stable per pt Lumbar postlaminectomy syndrome Myocardial Infarction 2012, s/p FRANCY to RCA Opioid dependence Painful total knee replacement (08/22/13) Prediabetes Pulmonary embolism 2020 "came from my legs, a clot broke loose">currently on plavix Rib fracture 2020; "fell of ladder 14 ft up; not sure if they are still fractured, but still has a lot of rib pain" Right-sided chest pain Sleep apnea no device Stroke ~between ages of [age], went to family Dr because he couldn't see or hear "very well,"; BP was really high>"when he was feeling better, they had him go to see a Dr in [place]">neurologist told him "he probably had a stroke." Surgical History History of back surgery History of cardiac cath ~2012, x1 stent, following IN>done in [place]; f/u [facility] Cardiology History of heart artery stent ~2012, x1 stent, [place]; f/u [facility] Cardiology History of total right hip arthroplasty History of total right knee replacement (TKR) Hx of colonoscopy Hx of fusion of cervical spine Hx of shoulder surgery mulitiple on lt shoulder Family History Mother Diabetes Social History Smoking Status: Never smoker Second Hand Exposure: No; Do You Dip or Chew Tobacco: Yes; Hx Alcohol Use: Yes Alcohol type: beer Hx Substance Use: Yes (medical card) Prescribed Medications: Marijuana Last Used Substance: Just Prior to Arrival Last Used Substance Other:: uses at least 3x daily-advised Substance Use Type Other:: Patient states he has a medical marijuana card Preferred Language: [place] Communication Ability: Effective Visual Impairment: No Limitations Hearing Ability: Normal Operational Communication Chief Required: No Beliefs That Will Affect Care: None marital status: Single Current Living Situation: Family Current Living Situation Comment: Lives with brother current occupational status: retired Other Information That Helps Us Care for You: No Feels Safe at Home: Yes Safety Concerns: Feels Safe At This Time Assistive Devices: None Allergies Allergies Allergy/AdvReac Type Severity Reaction Status Date / Time aspirin AdvReac Mild UPSET Verified 07/21/22 13:46 STOMACH Home Meds Home Medications Medication Instructions Recorded Confirmed clopidogrel 75 mg tablet (Plavix) 75 mg PO QAM 10/28/17 08/25/22 lisinopril 40 mg tablet 40 mg PO QAM 10/28/17 08/25/22 sennosides 8.6 mg tablet (senna) 8.6 mg PO BID PRN Constipation 10/28/17 08/25/22 tamsulosin 0.4 mg capsule (Flomax) 0.4 mg PO QAM 05/04/18 08/25/22 clonazepam 1 mg tablet (Klonopin) 1 mg PO TID 11/08/18 08/25/22 duloxetine 60 mg capsule,delayed 60 mg PO QAM 06/21/19 08/25/22 release (Cymbalta) trazodone 150 mg tablet 75 mg PO HS 06/21/19 08/25/22 rosuvastatin 20 mg tablet (Crestor) 20 mg PO HS 12/01/19 08/25/22 amlodipine 10 mg tablet 10 mg PO QAM 01/27/22 08/25/22 carvedilol 25 mg tablet 25 mg PO BID 01/27/22 08/25/22 gabapentin 600 mg tablet 900 mg PO BID 01/27/22 08/25/22 pantoprazole 40 mg tablet,delayed 40 mg PO QAM 01/27/22 08/25/22 release topiramate 25 mg tablet 25 mg PO BID 01/27/22 08/25/22 medical marijuana 1 dose inhalation UD PRN pain, 02/15/23 07/10/23 anxiety cyclobenzaprine 10 mg tablet 10 mg PO HS 05/21/22 08/25/22 milk thistle 1 cap PO BID 07/21/22 08/25/22 Previous Rx's Medication Instructions Recorded tramadol 50 mg tablet 50 mg PO BID PRN pain #30 tabs 08/15/22 hydrocodone 5 mg-acetaminophen 325 1 tab PO TID #90 tabs 08/22/22 mg tablet Results & Data (ED) Vital Signs Vital Signs - 24 hr 08/25/22 12:20 08/25/22 13:21 08/25/22 13:39 Temperature 36.5 C Temperature Source Temporal Artery Scan Pulse Rate 74 63 Pulse Rate [Right Brachial] 69 Pulse Rhythm Pulse Rhythm [Right Brachial] Regular Pulse Strength [Right Brachial] Normal Respiratory Rate 16 19 Respiratory Effort / Characteristics Non-Labored Non-Labored Spontaneous Respiratory Depth Normal Normal Respiratory Pattern Regular Blood Pressure 103/66 Blood Pressure [Right Arm] 116/68 Blood Pressure Mean 78 Blood Pressure Mean [Right Arm] 84 Blood Pressure Position [Right Arm] Pulse Oximetry 95 97 Oxygen Delivery Method Room Air Room Air Sepsis Recent Fever Within 48 Hours No Sepsis New/Unexplained Change in Mental Status No Sepsis Action Taken by Nursing No Action Required 08/25/22 13:41 08/25/22 17:33 08/25/22 17:44 Temperature Temperature Source Pulse Rate 69 62 Pulse Rate [Right Brachial] 76 Pulse Rhythm Regular Pulse Rhythm [Right Brachial] Regular Pulse Strength [Right Brachial] Normal Respiratory Rate 19 18 Respiratory Effort / Characteristics Non-Labored Spontaneous Respiratory Depth Normal Respiratory Pattern Regular Blood Pressure Blood Pressure [Right Arm] 144/84 H Blood Pressure Mean Blood Pressure Mean [Right Arm] 104 Blood Pressure Position [Right Arm] Lying Pulse Oximetry 97 99 Oxygen Delivery Method Room Air Room Air Sepsis Recent Fever Within 48 Hours Sepsis New/Unexplained Change in Mental Status Sepsis Action Taken by Nursing Laboratory Data Attestation: I reviewed the patient's lab results. 08/25/22 13:48 08/25/22 12:44 Lab Results 08/25/22 08/25/22 08/25/22 Range/Units 12:44 12:44 12:44 WBC Cancelled RBC Cancelled Hgb Cancelled Hct Cancelled MCV Cancelled MCH Cancelled MCHC Cancelled RDW Std Deviation Cancelled RDW Coeff of Hanh Cancelled Plt Count Cancelled MPV Cancelled Immature Gran % (Auto) Cancelled Neut % (Auto) Cancelled Lymph % (Auto) Cancelled Freestone % (Auto) Cancelled Eos % (Auto) Cancelled Baso % (Auto) Cancelled Neut # (Auto) Cancelled Lymph # (Auto) Cancelled Freestone # (Auto) Cancelled Eos # (Auto) Cancelled Baso # (Auto) Cancelled Immature Gran # (Auto) Cancelled Absolute Nucleated RBC Cancelled Nucleated RBC % (auto) Cancelled Neutrophils % (Manual) Cancelled Band Neutrophils % Cancelled Lymphocytes % (Manual) Cancelled Prolymphocyte % Cancelled Reactive Lymphs % (Man) Cancelled Monocytes % (Manual) Cancelled Eosinophils % (Manual) Cancelled Basophils % (Manual) Cancelled Metamyelocytes % (Man) Cancelled Myelocytes % (Man) Cancelled Promyelocytes % (Man) Cancelled Blast Cells % (Manual) Cancelled Plasma Cell % (Manual) Cancelled Other Cells % Cancelled Nucleated RBC % Cancelled Neutrophils # (Manual) Cancelled Band Neutrophils # Cancelled Total Absolute Neuts Cancelled Lymphocytes # (Manual) Cancelled Prolymphocyte # Cancelled Reactive Lymphs # Cancelled Total Abs Lymphocytes Cancelled Monocytes # (Manual) Cancelled Eosinophils # (Manual) Cancelled Basophils # (Manual) Cancelled Metamyelocytes # (Man) Cancelled Myelocytes # (Manual) Cancelled Promyelocytes # (Man) Cancelled Blast Cells # (Man) Cancelled Plasma Cell # (Manual) Cancelled Other Cells # Cancelled Nucleated RBCs # (Man) Cancelled Hypersegmented Neuts Cancelled Hyposegmented Neuts Cancelled Hypogranular Neuts Cancelled Large Granular Lymphs Cancelled # Lrg Granular Lymphs Cancelled Hairy Cells Cancelled Smudge Cells Cancelled Toxic Granulation Cancelled Toxic Vacuolation Cancelled Dohle Bodies Cancelled Christos Rods Cancelled Platelet Estimate Cancelled Hypogranular Platelets Cancelled Giant Platelets Cancelled Platelet Satelliting Cancelled RBC Morphology Cancelled Polychromasia Cancelled Hypochromasia Cancelled Poikilocytosis Cancelled Basophilic Stippling Cancelled Anisocytosis Cancelled Microcytosis Cancelled Macrocytosis Cancelled Spherocytes Cancelled Pappenheimer Bodies Cancelled Sickle Cells Cancelled Target Cells Cancelled Tear Drop Cells Cancelled Ovalocytes Cancelled Stomatocytes Cancelled Chery-Rivereno Bodies Cancelled Echinocytes Cancelled Acanthocytes (Spur) Cancelled Rouleaux Cancelled RBC Agglutinates Cancelled Schistocytes Cancelled Sezary Cell Cancelled PT Cancelled INR Cancelled APTT Cancelled PTT Ratio Cancelled Sodium 138 (136-145) mmol/L Potassium 3.8 (3.5-5.1) mmol/L Chloride 107 (98-107) mmol/L Carbon Dioxide 23 (21-32) mmol/L Anion Gap 8 (3-11) BUN 10 (6-23) mg/dl Creatinine 0.98 (0.6-1.4) mg/dl Est Cr Clr Drug Dosing 84.8 ml/min Est GFR ( Amer) 92.7 ml/min Est GFR (Non-Af Amer) 80.0 ml/min BUN/Creatinine Ratio 10.2 (10-20) Glucose 194 H (70-99(Fasting)) mg/dl Calcium 8.7 (8.6-10.3) mg/dl Total Bilirubin 0.5 (0.2-1.0) mg/dl AST 22 (13-39) U/L ALT 20 (7-52) U/L Alkaline Phosphatase 60 (34-104) U/L Troponin I High Sens < 2.3 (0-20) pg/ml Total Protein 6.7 (6.0-8.3) gm/dl Albumin 4.0 (3.4-5.0) gm/dl Globulin 2.7 (2.5-4.0) gm/dl Albumin/Globulin Ratio 1.5 (0.9-2) Blood Parasites ID Cancelled 08/25/22 08/25/22 Range/Units 13:48 13:48 WBC 7.83 RBC 4.12 L Hgb 11.9 L Hct 35.8 L MCV 86.9 MCH 28.9 MCHC 33.2 RDW Std Deviation 46.4 H RDW Coeff of Hanh 14.7 H Plt Count 171 MPV 9.0 L Immature Gran % (Auto) 1.1 Neut % (Auto) 68.8 Lymph % (Auto) 16.5 Freestone % (Auto) 8.9 Eos % (Auto) 4.1 Baso % (Auto) 0.6 Neut # (Auto) 5.38 Lymph # (Auto) 1.29 Freestone # (Auto) 0.70 H Eos # (Auto) 0.32 Baso # (Auto) 0.05 Immature Gran # (Auto) 0.09 Absolute Nucleated RBC Nucleated RBC % (auto) Neutrophils % (Manual) Band Neutrophils % Lymphocytes % (Manual) Prolymphocyte % Reactive Lymphs % (Man) Monocytes % (Manual) Eosinophils % (Manual) Basophils % (Manual) Metamyelocytes % (Man) Myelocytes % (Man) Promyelocytes % (Man) Blast Cells % (Manual) Plasma Cell % (Manual) Other Cells % Nucleated RBC % Neutrophils # (Manual) Band Neutrophils # Total Absolute Neuts Lymphocytes # (Manual) Prolymphocyte # Reactive Lymphs # Total Abs Lymphocytes Monocytes # (Manual) Eosinophils # (Manual) Basophils # (Manual) Metamyelocytes # (Man) Myelocytes # (Manual) Promyelocytes # (Man) Blast Cells # (Man) Plasma Cell # (Manual) Other Cells # Nucleated RBCs # (Man) Hypersegmented Neuts Hyposegmented Neuts Hypogranular Neuts Large Granular Lymphs # Lrg Granular Lymphs Hairy Cells Smudge Cells Toxic Granulation Toxic Vacuolation Dohle Bodies Christos Rods Platelet Estimate Hypogranular Platelets Giant Platelets Platelet Satelliting RBC Morphology Polychromasia Hypochromasia Poikilocytosis Basophilic Stippling Anisocytosis Microcytosis Macrocytosis Spherocytes Pappenheimer Bodies Sickle Cells Target Cells Tear Drop Cells Ovalocytes Stomatocytes Chery-Rivereno Bodies Echinocytes Acanthocytes (Spur) Rouleaux RBC Agglutinates Schistocytes Sezary Cell PT 10.4 INR 0.9 APTT 26.2 PTT Ratio 0.9 Sodium (136-145) mmol/L Potassium (3.5-5.1) mmol/L Chloride (98-107) mmol/L Carbon Dioxide (21-32) mmol/L Anion Gap (3-11) BUN (6-23) mg/dl Creatinine (0.6-1.4) mg/dl Est Cr Clr Drug Dosing ml/min Est GFR ( Amer) ml/min Est GFR (Non-Af Amer) ml/min BUN/Creatinine Ratio (10-20) Glucose (70-99(Fasting)) mg/dl Calcium (8.6-10.3) mg/dl Total Bilirubin (0.2-1.0) mg/dl AST (13-39) U/L ALT (7-52) U/L Alkaline Phosphatase (34-104) U/L Troponin I High Sens (0-20) pg/ml Total Protein (6.0-8.3) gm/dl Albumin (3.4-5.0) gm/dl Globulin (2.5-4.0) gm/dl Albumin/Globulin Ratio (0.9-2) Blood Parasites ID Administered Medications Hydrocodone Bitart/Acetaminophen (Hydrocodone/Acetamophen 5/325mg Tab) 1 tab PO TID MARIO Stop: 09/08/22 20:59 Last Admin: 08/25/22 22:17 Dose: 1 tab Documented By: RAVIN Carvedilol (Carvedilol 25 Mg Tab) 25 mg PO BID MARIO Stop: 09/24/22 20:59 Last Admin: 08/25/22 22:23 Dose: 25 mg Documented By: RAVIN Chlordiazepoxide HCl (Chlordiazepoxide Hcl 25 Mg Cap) 25 mg PO Q8H MARIO Stop: 08/27/22 16:01 Last Admin: 08/25/22 22:27 Dose: 25 mg Documented By: RAVIN Clonazepam (Clonazepam 1 Mg Tab) 1 mg PO TID MARIO Stop: 09/24/22 20:59 Last Admin: 08/25/22 22:17 Dose: 1 mg Documented By: RAVIN Cyclobenzaprine HCl (Cyclobenzaprine Hcl 10 Mg Tab) 10 mg PO HS MARIO Stop: 09/24/22 20:59 Last Admin: 08/25/22 22:17 Dose: 10 mg Documented By: RAVIN Folic Acid (Folic Acid 1 Mg Tab) 1 mg PO QAM MARIO Stop: 09/24/22 19:44 Last Admin: 08/25/22 20:56 Dose: 1 mg Documented By: CHIQUITA Gabapentin (Gabapentin 300 Mg Cap) 900 mg PO BID MARIO Stop: 09/24/22 20:59 Last Admin: 08/25/22 22:23 Dose: 900 mg Documented By: RAVIN Heparin Sodium (Porcine) (Heparin Sod 5,000 Unit/0.5 Ml Vial) 5,000 units SQ Q12 MARIO Stop: 09/24/22 20:59 Last Admin: 08/25/22 22:23 Dose: 5,000 units Documented By: RAVIN Thiamine HCl 100 mg/ Syringe 10 mls @ 2 mls/min IV QAM MARIO Stop: 09/24/22 19:59 Last Admin: 08/25/22 20:57 Dose: 2 mls/min Documented By: CHIQUITA Rosuvastatin Calcium (Rosuvastatin Calcium 20 Mg Tab) 20 mg PO HS MARIO Stop: 09/24/22 20:59 Last Admin: 08/25/22 22:23 Dose: 20 mg Documented By: RAVIN Topiramate (Topiramate 25 Mg Tab) 25 mg PO BID MARIO Stop: 09/24/22 20:59 Last Admin: 08/25/22 22:23 Dose: 25 mg Documented By: RAVIN Trazodone HCl (Trazodone Hcl 50 Mg Tab) 75 mg PO HS MARIO Stop: 09/24/22 20:59 Last Admin: 08/25/22 22:23 Dose: 75 mg Documented By: RAVIN Discontinued Medications Hydrocodone Bitart/Acetaminophen (Hydrocodone/Acetamophen 5/325mg Tab) 1 tab PO NOW STA Stop: 08/25/22 16:23 Last Admin: 08/25/22 16:27 Dose: 1 tab Documented By: CAMILO Sodium Chloride (Nss 1000ml) 1,000 mls @ 999 mls/hr IV .Q1H1M ONE Stop: 08/25/22 14:40 Last Infusion: 08/25/22 14:52 Dose: 0 mls/hr Documented By: Admin: 08/25/22 13:43 Dose: 999 mls/hr Documented By: CAMILO Ioversol (Optiray 320 125ml) 120 ml IV ONCE ONE Stop: 08/25/22 14:56 Last Admin: 08/25/22 14:50 Dose: 120 ml Documented By: LIZZIE Imaging Data Radiologist's Impression: Chest X-Ray 08/25/22 12:24 XR chest 1V portable CLINICAL HISTORY: Chest pain, nonspecific TECHNIQUE: Single frontal radiograph of the chest was obtained. Comparison: Comparison is made to chest radiograph 07/23/2021 FINDINGS: No lines and tubes are seen. Cardiomegaly is noted. The lungs are clear. No evidence of pleural effusion or pneumothorax. Cervical spinal fixation hardware is seen. IMPRESSION: No acute abnormalities and in particular no radiographic evidence of pneumonia. ACT 112: Negative or not required by law. Electronically signed by: Arturo Joe M.D. 08/25/2022 1:47 PM Chest CTA 08/25/22 13:40 CT angio chest PE protocol CLINICAL HISTORY: CP, h/o PE, r/o PE TECHNIQUE: Multidetector row helical CT of the chest was performed with angiographic protocol. Coronal and sagittal reformations were obtained. Coronal and sagittal MIPS were obtained from the axial data set and were submitted for review. Automated dose lowering techniques and/or adjustment according to patient size were utilized for this exam. Comparison: Comparison is made to CTA chest 10/04/2011 FINDINGS: Lungs and pleura: Atelectasis versus scarring is seen in the dependent portions of the lungs. Heart and pericardium: Heart size is normal. No pericardial effusion. Vessels: Linear density is seen in the right lower lobe artery. Otherwise no evidence of pulmonary embolus. Mediastinum and shawna: Unremarkable. Chest wall and lower neck: Unremarkable. Abdomen: Unremarkable. Bones: Degenerative changes in the thoracic spine. IMPRESSION: No acute pulmonary embolus is seen. Linear filling defect in the right lower lobar artery may represent remote prior pulmonary embolus. ACT 112: Negative or not required by law. Electronically signed by: Arturo Joe M.D. 08/25/2022 3:35 PM Discharge Plan Visit Data Chief Complaint: Chest Pain Stated Complaint: CHEST PAIN, PAIN RUNNING DOWN R SIDE, BACK PAIN ED Provider: Brian Vazquez Discharge Problem: Right-sided chest pain, Opioid dependence, Cervical radiculopathy, CAD (coronary artery disease), History of pulmonary embolism Patient Disposition: Admitted As Inpatient Discharge Instructions Interventions: ED Discharge Assessment Last Done: 08/25/22 21:14
--- NOTE | 2022-08-25 18:20 | Electrocardiogram Report ---
Test Reason : Blood Pressure : / mmHG Vent. Rate : 071 BPM Atrial Rate : 071 BPM P-R Int : 176 ms QRS Dur : 090 ms QT Int : 392 ms P-R-T Axes : 043 021 046 degrees QTc Int : 425 ms Normal sinus rhythm Low voltage QRS Borderline ECG When compared with ECG of 12-SEP-2013 19:05, No significant change was found Confirmed by Edgar Alfaro ([id number]) on 08/25/2022 6:20:08 PM Referred By: Confirmed By:Danny Alfaro
[2022-08-25] MEDS ORDERED: POLYETHYLENE (MIRALAX) 17 GM PACK PO PRN (18:26)
[2022-08-25] MEDS ORDERED: MAGNESIUM HYDROXIDE SUSP 30 ML UDC PO PRN (18:26)
[2022-08-25] MEDS ORDERED: ONDANSETRON INJ 2 MG/ML 2 ML VIAL IV PRN (18:26)
[2022-08-25] MEDS ORDERED: ALUMINUM/MAGNESIUM SUSP 30 ML UDC PO PRN (18:26)
[2022-08-25] MEDS ORDERED: ACETAMINOPHEN 325 MG TAB PO PRN (18:26)
--- NOTE | 2022-08-25 18:41 | History & Physical Report ---
Date of Service August 25, 2022 Assessment & Plan (1) Right-sided chest pain: (2) CAD (coronary artery disease): (3) History of pulmonary embolism: (4) Cervical radiculopathy: (5) Depression: (6) GERD (gastroesophageal reflux disease): (7) BPH (benign prostatic hyperplasia): Plan 67 year old male that presents with right sided chest pain that he describes as 'achy and sore'. Denies jaw pain. Has bilateral arm pain related to cervical decompression. He does report shoulder and headache related to his cervical decompression. His most significant overall subjective complaint is back pain. The patient has history of multilevel surgery to both cervical and lumbar spine. He had been admitted to [facility] in January,, with acute on chronic back pain. Cervical revision surgery planned for October 07, 2022. Currently, taking Trazodone, Vicodin, Topiramate and Gabapentin. He follows with [facility]. Had some trigger point injections in April 2022 under pain management service. Also uses clonazepam for anxiety. Has a H/O of DVT and PE a few months after he fell off of a ladder. For which he was on Eliquis from 11/2019 until 03/2020. Additional past medical history includes CAD status post FRANCY to RCA in 2012. Initial troponin negative. No leukocytosis and all other electrolytes unremarkable.Does not appreciate any EKG changes indicating ischemia. Do not suspect that this is ACS in nature; rather related to complicated pain related to cervical radiculopathy. Chest CTA negative for PE. Doppler ordered to complete PE workup. Pt reports chewing tobacco. Reports drinking whisky 1/5 daily, but a month ago, has only been drinking 4 oz shots x1 per day. Yesterday, he bought a 6 pack of beer and drank two beers. No recreational drug use. Has a medical marijuana card that he does not use very often. Pain management consultation placed. Right-sided chest pain: CAD: H/o AMI: 2013: FRANCY --> RCA;follows with [facility] Takes Plavix; continue Initial Troponin negative; trend x1; do not suspect ACS Lactate negative No ischemic changes on EKG Chest CTA: No acute pulmonary embolus is seen. Linear filling defect in the right lower lobar artery may represent remote prior pulmonary embolus CXR: Negative for acute cardiopulmonary disease Ordered [facility] doppler US to complete PE workup Acute on chronic pain: Cervical radiculopathy: Takes Vicodin, trazodone, topiramate, and clonazepam [place] given in ED Ketorolac ordered as needed Was admitted to [facility] in January 2022 with acute on chronic back pain Cervical Decompression revision surgery scheduled for 09/2022. Pain management consultation placed History of PE: Completed 3 month course of Eliquis. Completed 04/11/2020. Alcohol abuse: Up until 1 month ago reports drinking whisky 1/5 daily; one month ago, has only been drinking one 4 oz shot daily Yesterday, he bought a 6 pack of beer and drank two beers. No tremors on exam AWSS scale; Thiamine IV and folic acid PO Would benefit from behavioral health liaison conversation regarding AA and alcohol abstinence HTN: Takes amlodipine, Coreg, and lisinopril; continue Depression: Takes duloxetine; continue GERD: Takes pantoprazole; continue BPH: Takes tamsulosin; continue Disposition: PCP: Dr. Gaxiola CODE STATUS: DNR/DNI VTE prophylaxis: Heparin SQ I spent a total of 87 minutes coordinating, documenting, and providing care for this patient excluding time spent in the performance of separately billed services. All of the aforementioned completed while collaborating with the assigned attending physician for a full treatment plan. Please see their addendum for further details. History of Present Illness Chief Complaint: chest pain Primary Care Provider: Noy Gaxiola MD Mr. Armenta is a 67 year old male that presents to the [facility] today with right sided chest pain that he describes as 'achy and sore'. Denies jaw pain. Has bilateral arm pain related to cervical decompression. He does report shoulder and headache related to his cervical decompression. His most significant overall subjective complaint is back pain. The patient has history of multilevel surgery to both cervical and lumbar spine. He had been admitted to [facility] in January,, with acute on chronic back pain. Cervical revision surgery planned for October 07, 2022. Currently, taking Trazodone, Hydrocodone and Gabapentin. He follows with [facility]. Had some trigger point injections in April 2022 under pain management service. Also uses clonazepam for anxiety. Patient has a history of DVT and PE a few months after he fell off of a ladder. For which he was on Eliquis from 11/2019 until 03/2020. Additional past medical history includes CAD status post FRANCY to RCA in 2012, HTN, HLD, depression, BPH, and GERD.Detailed catheterization report indicates: 40% mid LAD stenosis, 40 to 50% circumflex stenosis, and a dominant right coronary artery with a 50 to 60% stenosis at the proximal edge of the distal RCA stent. Initial troponin negative. No leukocytosis and all other electrolytes unremarka ble.Does not appreciate any EKG changes indicating ischemia. Do not suspect that this is ACS in nature; rather related to complicated pain related to cervical radiculopathy. Pt reports chewing tobacco. Reports drinking whisky 1/5 daily, but a month ago, has only been drinking 4 oz shots x1 per day. Yesterday, he bought a 6 pack of beer and drank two beers. No recreational drug use. Has a medical marijuana card that he does not use very often. Patient will be admitted for further evaluation and management. Please see A/P for further details. Allergies Allergy/AdvReac Type Severity Reaction Status Date / Time aspirin AdvReac Mild UPSET Verified 07/21/22 13:46 STOMACH Home Medications Medication Instructions Recorded Confirmed Type clopidogrel 75 mg tablet (Plavix) 75 mg PO QAM 10/28/17 08/25/22 History lisinopril 40 mg tablet 40 mg PO QAM 10/28/17 08/25/22 History sennosides 8.6 mg tablet (senna) 8.6 mg PO BID PRN Constipation 10/28/17 08/25/22 History tamsulosin 0.4 mg capsule (Flomax) 0.4 mg PO QAM 05/04/18 08/25/22 History clonazepam 1 mg tablet (Klonopin) 1 mg PO TID 11/08/18 08/25/22 History duloxetine 60 mg capsule,delayed 60 mg PO QAM 06/21/19 08/25/22 History release (Cymbalta) trazodone 150 mg tablet 75 mg PO HS 06/21/19 08/25/22 History rosuvastatin 20 mg tablet (Crestor) 20 mg PO HS 12/01/19 08/25/22 History amlodipine 10 mg tablet 10 mg PO QAM 01/27/22 08/25/22 History carvedilol 25 mg tablet 25 mg PO BID 01/27/22 08/25/22 History gabapentin 600 mg tablet 900 mg PO BID 01/27/22 08/25/22 History pantoprazole 40 mg tablet,delayed 40 mg PO QAM 01/27/22 08/25/22 History release topiramate 25 mg tablet 25 mg PO BID 01/27/22 08/25/22 History medical marijuana 1 dose inhalation UD PRN pain, 04/02/22 08/25/22 History anxiety cyclobenzaprine 10 mg tablet 10 mg PO HS 05/21/22 08/25/22 History milk thistle 1 cap PO BID 07/21/22 08/25/22 History tramadol 50 mg tablet 50 mg PO BID PRN pain #30 tabs 08/15/22 08/25/22 Rx hydrocodone 5 mg-acetaminophen 325 1 tab PO TID #90 tabs 08/22/22 08/25/22 Rx mg tablet Past Med/Surg History Medical History (Updated 08/25/22 @ 18:34 by JULY Joshi) BPH (benign prostatic hyperplasia) CAD (coronary artery disease) s/p FRANCY to RCA 2012, follows with [facility] cardiology Cervical disc disorder Cervical post-laminectomy syndrome Cervical radiculopathy Chronic hip pain after total replacement of right hip joint Deep vein thrombosis 2020, following fall from ladder Depression Dyslipidemia Dystonic movements Esophageal dysmotility GERD (gastroesophageal reflux disease) History of GI bleed History of pulmonary embolism HTN (hypertension) controlled, stable per pt Lumbar postlaminectomy syndrome Myocardial Infarction 2012, s/p FRANCY to RCA Opioid dependence Painful total knee replacement (08/22/13) Prediabetes Pulmonary embolism 2020 "came from my legs, a clot broke loose">currently on plavix Rib fracture 2020; "fell of ladder 14 ft up; not sure if they are still fractured, but still has a lot of rib pain" Right-sided chest pain Sleep apnea no device Stroke ~between ages of [age], went to family Dr because he couldn't see or hear "very well,"; BP was really high>"when he was feeling better, they had him go to see a Dr in [place]">neurologist told him "he probably had a stroke." Surgical History History of back surgery History of cardiac cath ~2013, x1 stent, following CT>done in [place]; f/u [facility] Card[facility] History of heart artery stent ~2012, x1 stent, [place]; f/u [facility] Card[facility] History of total right hip arthroplasty History of total right knee replacement (TKR) Hx of colonoscopy Hx of fusion of cervical spine Hx of shoulder surgery mulitiple on lt shoulder Family History Mother Diabetes Social History Smoking Status: Never smoker Second Hand Exposure: No; Do You Dip or Chew Tobacco: Yes (1 can/day; advised); Hx Alcohol Use: Yes Alcohol type: beer and hard liquor Hx Substance Use: Yes (medical card) Prescribed Medications: Marijuana Last Used Substance: Hours (ago) Last Used Substance Other:: uses at least 3x daily- advised Substance Use Type Other:: Patient states he has a medical marijuana card Preferred Language: French Communication Ability: Effective Visual Impairment: No Limitations Hearing Ability: Normal Cytopathology Technologist Required: No Beliefs That Will Affect Care: None marital status: Single Current Living Situation: Family Current Living Situation Comment: Lives with brother current occupational status: retired Feels Safe at Home: Yes Assistive Devices: Cane Review of Systems Review of Systems: Neuro: (-) Falls, trauma, slurred speech HEENT: (-) JIM, dizziness, dysphagia, visual or auditory changes CV: (-) CP, palpitations, swelling Resp: (-) SOB GI: (-) appetite changes, N/V/D, bowel changes : (-) urinary changes Skin: (-) rashes Psych: (-) anxiety, depression Physical Exam Physical Exam: See Dr. Celaya's physical examination addendum for further details Results & Data Results & Data Vital Signs (Past 12 Hours) Vital Signs Temp Pulse Pulse Resp BP BP Pulse Ox 08/25/22 17:44 62 08/25/22 17:33 76 18 144/84 H 99 08/25/22 13:41 69 19 97 08/25/22 13:39 69 19 116/68 97 08/25/22 13:21 63 08/25/22 12:20 36.5 C 74 16 103/66 95 O2 Del Method 08/25/22 17:44 08/25/22 17:33 Room Air 08/25/22 13:41 Room Air 08/25/22 13:39 Room Air 08/25/22 13:21 08/25/22 12:20 Room Air Laboratory Results Short CBC 08/25/22 08/25/22 Range/Units 12:44 13:48 WBC Cancelled 7.83 Hgb Cancelled 11.9 L Hct Cancelled 35.8 L Plt Count Cancelled 171 BMP 08/25/22 12:44 Sodium 138 Potassium 3.8 Chloride 107 Carbon Dioxide 23 BUN 10 Creatinine 0.98 Glucose 194 H Calcium 8.7 Liver Function 08/25/22 Range/Units 12:44 Total Bilirubin 0.5 (0.2-1.0) mg/dl AST 22 (13-39) U/L ALT 20 (7-52) U/L Alkaline Phosphatase 60 (34-104) U/L Albumin 4.0 (3.4-5.0) gm/dl Diagnostic Findings Chest X-Ray 08/25/22 12:24 XR chest 1V portable CLINICAL HISTORY: Chest pain, nonspecific TECHNIQUE: Single frontal radiograph of the chest was obtained. Comparison: Comparison is made to chest radiograph 07/23/2021 FINDINGS: No lines and tubes are seen. Cardiomegaly is noted. The lungs are clear. No evidence of pleural effusion or pneumothorax. Cervical spinal fixation hardware is seen. IMPRESSION: No acute abnormalities and in particular no radiographic evidence of pneumonia. ACT 112: Negative or not required by law. Electronically signed by: Arturo Joe M.D. 08/25/2022 1:47 PM Chest CTA 08/25/22 13:40 CT angio chest PE protocol CLINICAL HISTORY: CP, h/o PE, r/o PE TECHNIQUE: Multidetector row helical CT of the chest was performed with angiographic protocol. Coronal and sagittal reformations were obtained. Coronal and sagittal MIPS were obtained from the axial data set and were submitted for review. Automated dose lowering techniques and/or adjustment according to patient size were utilized for this exam. Comparison: Comparison is made to CTA chest 10/04/2011 FINDINGS: Lungs and pleura: Atelectasis versus scarring is seen in the dependent portions of the lungs. Heart and pericardium: Heart size is normal. No pericardial effusion. Vessels: Linear density is seen in the right lower lobe artery. Otherwise no evidence of pulmonary embolus. Mediastinum and shawna: Unremarkable. Chest wall and lower neck: Unremarkable. Abdomen: Unremarkable. Bones: Degenerative changes in the thoracic spine. IMPRESSION: No acute pulmonary embolus is seen. Linear filling defect in the right lower lobar artery may represent remote prior pulmonary embolus. ACT 112: Negative or not required by law. Electronically signed by: Arturo Joe M.D. 08/25/2022 3:35 PM Code Status & VTE Plan Code Status Full Code in the event of cardiac or respiratory arrest VTE Prophylaxis Plan VTE Prophylaxis will be ordered: Yes Supervising Physician Co-Signing Physician Notes Mr. Armenta is a 67 year male with pmhx of etoh use disorder in early remission, tobacco dependence (chewing), CAD (s/p CT s/p FRANCY to RCA, 2012), HTN, HLP, hx of VTE (occurred a few months after falling off a ladder, possibly related to inactivity), JANI, GERD, hx GIB, BPH, chronic pain with opioid dependence, cervical and lumbar stenosis with radiculopathy, sacroiliitis and depression. He presented with right sided chest pain that seems most prominent in the right side and right upper abdominal wall. Thus far workup is unrevealing. Mr. Armenta reports pain described as 'achy and sore.' It is fairly constant but worse with activity and improves with pain medicine, though he feels he needs something stronger than the [place] he was given in the ED. pain is currently 8/10. He states pain is located in the right chest but points more to his side and upper abdomen. He feels taking a deep breath is limited by pain, but he does not have any true sob. Pain is reproducible on exam. He denies jaw pain. He has bilateral arm and shoulder pain related to cervical stenosis s/p decompression in need of surgical revision which is planned for Sep 2022. He follows with pain management and takes Hydrocodone and Gabapentin. He has otherwise been in his usual state of health. He denies malaise, weakness beyond baseline, f/c/n/v, cough, congestion, sob, abdominal pain and diarrhea. He has a great deal of chronic pain at baseline. ED course: VS notable for BP 152/87, otherwise wnl, saturating well on room air b/w notable for h/h 11.9/35.8 (baseline), glucose 194. Remaining cbc, cmp, tsh, and serial troponin I are all unimpressive/wnl. CXR and CTA chest are negative for acute pathology. pt given [place] and IVF, admitted to hospitalist service, mainly for pain control. LE US pending. Physical Exam: General: NAD, well nourished, well developed, non-toxic appearing, obese (BMI 33.4) Head: NC AT Eyes: PERRL, EOMI, anicteric sclera, no conjunctival injection Nose: normal, nares patent Mouth: MMM Neck: supple, trachea midline CV: RRR S1 S2 Pulm: CTA b/l Abd/GI: + BS, soft, ND. TTP RUQ, right side : no merida Ext: no pretibial edema, peripheral pulses intact MSK: normal bulk and tone Neuro: moving all 4 extremities symmetrically, alert and oriented, no focal deficits. Psych: normal/calm mood and affect Skin: visible skin is warm, dry, and without rash. Pt not fully undressed for exam. # CP/SOB: ddx is broad but I suspect radicular pain related to cervical stenosis . CTA neg for VTE, trop wnl x 2, EKG reassuring f/u US b/l LE for DVT analgesia pain management consulted # radiculopathy: continue Clonazepam 1 mg TID, Cyclobenzaprine 10 mg hs, Gabapentin 900 mg BID, Topiramate 25 mg BID. Additional analgesia as needed, for now with Ketorolac ordered pain management consulted # CAD: unlikely to be the cause of the symptoms above continue Plavix 75 mg daily, carvedilol 25 mg BID, statin therapy # hx GIB, GERD: no complaints at this time continue PPI (pantoprazole 40 mg daily) monitor for bleeding while receiving NSAIDs # HTN: for the most part adequately controlled continue Amlodipine 10 mg daily, Carvedilol 25 mg po daily, Lisinopril 40 mg po daily # BPH: no complaints at this time, continue Tamsulosin 0.4 mg hs # HLP: continue statin therapy # etoh use disorder: in early remission, encourage sustained etoh cessation # tobacco use: cessation counseling, offer NRT Rest per attested note above.
[2022-08-25 18:54] LABS: Appearance Urine Clear (Clear); Bilirubin Urine Negative (Negative); Blood Urine Negative (Negative); Color Urine Yellow; Glucose Urine UA Negative (Negative); Ketones Urine Negative (Negative); Leukocyte Esterase Urine Negative (Negative); Nitrite Urine Negative (Negative); Protein Urine Negative (Negative); Specific Gravity Urine 1.024 (1.000-1.030); Urobilinogen Urine Negative (Negative); pH Urine 7.5 (4.5-7.5)
[2022-08-25] MEDS ORDERED: Ativan PO Alcohol Withdrawal--Active Protocol PO PRN (19:43)
[2022-08-25] MEDS: FOLIC ACID 1 MG TAB PO SCH (20:56)
[2022-08-25] MEDS: THIAMINE HCL 100 MG in SYRINGE 9 ML IV SCH (20:57)
[2022-08-25] MEDS ORDERED: HYDROCODONE/ACETAMOPHEN 5/325MG TAB PO SCH (21:00)
[2022-08-25] MEDS ORDERED: LORazepam 2 MG/1 ML VIAL IV PRN ×3 (21:51)
[2022-08-25] MEDS ORDERED: chlordiazePOXIDE ALCOHOL WITHDRAWL 25MG PO STA (21:51)
[2022-08-25] MEDS ORDERED: Ativan IV Alcohol Withdrawal--Active Protocol IV PRN (21:51)
[2022-08-25] MEDS: clonazePAM 1 MG TAB PO SCH (22:17)
[2022-08-25] MEDS: CYCLOBENZAPRINE HCL 10 MG TAB PO SCH (22:17)
[2022-08-25] MEDS: GABAPENTIN 300 MG CAP PO SCH (22:23)
[2022-08-25] MEDS: ROSUVASTATIN CALCIUM 20 MG TAB PO SCH (22:23)
[2022-08-25] MEDS: TOPIRAMATE 25 MG TAB PO SCH (22:23)
[2022-08-25] MEDS: carvediloL 25 MG TAB PO SCH (22:23)
[2022-08-25] MEDS: traZODone HCL 50 MG TAB PO SCH (22:23)
[2022-08-25] MEDS: HEPARIN SOD 5,000 UNIT/0.5 ML VIAL SQ SCH (22:23)
[2022-08-25] MEDS: chlordiazePOXIDE HCl 25 MG CAP PO SCH ×3 (22:27→22:44)
[2022-08-25] MEDS: KETOROLAC TROMETHAMINE 15 MG/ML VIAL IV PRN (23:30)
--- NOTE | 2022-08-26 00:12 | Ultrasound Report ---
Exam(s): US VENOUS BILATERAL LOWER EXTREMITIES EXAM: US Duplex Bilateral Lower Extremities Veins CLINICAL HISTORY: Reason for exam: H/O PE/DVT and chest pain. TECHNIQUE: Real-time duplex ultrasound scan of the bilateral lower extremity veins integrating B-mode two-dimensional vascular structure, Doppler spectral analysis, color flow Doppler imaging and compression. COMPARISON: No relevant prior studies available. FINDINGS: Right deep veins: Unremarkable. The visualized deep veins of the right lower extremity are compressible with color flow. No visualized thrombus. Right superficial veins: Unremarkable. Left deep veins: Unremarkable. The visualized deep veins of the left lower extremity are compressible with color flow. No visualized thrombus. Left superficial veins: Unremarkable. Soft tissues: No acute findings. IMPRESSION: No DVT within the bilateral lower extremities. Electronically signed by: Marshall Jaquez MD 08/26/22 00:11 AM
[2022-08-26] MEDS: chlordiazePOXIDE HCl 25 MG CAP PO SCH ×3 (05:04→15:36)
[2022-08-26 06:34] LABS: Hematocrit (blood only) 34.4 % (42.0-52.0); Hemoglobin 11.2 g/dl (14.0-18.0); Mean Corpuscular Hemoglobin 28.5 pg (25.0-34.0); Mean Corpuscular Hgb Conc 32.6 g/dL (32.0-36.0); Mean Corpuscular Volume 87.5 fL (80.0-100.0); Platelet Count 163 K/uL (130-400); RDW Coefficient of Variation 14.6 % (11.5-14.5); RDW Standard Deviation 46.9 fL (36.4-46.3); Red Blood Count 3.93 M/uL (4.70-6.10); White Blood Count 5.67 K/ul (4.8-10.8)
[2022-08-26 07:01] LABS: Albumin Globulin Ratio 1.6 (0.9-2); Albumin Level 3.5 gm/dl (3.4-5.0); BUN Creatinine Ratio 10.2 (10-20); Bilirubin,Total 0.4 mg/dl (0.2-1.0); Calcium 8.1 mg/dl (8.6-10.3); Creatinine Clr Calc Pharmacy 94.2 ml/min; Est GFR (African American) 103.7 ml/min; Est GFR (Non-African American) 89.5 ml/min; Globulin 2.2 gm/dl (2.5-4.0); Magnesium 1.8 mg/dl (1.7-2.4); Phosphorus 2.8 mg/dl (2.5-4.9); Potassium 3.6 mmol/L (3.5-5.1); Total Protein 5.7 gm/dl (6.0-8.3)
[2022-08-26] MEDS: oxyCODONE/ACETAMINOPHEN 5mg/325mg TAB PO SCH ×3 (08:05→20:21)
[2022-08-26] MEDS: clonazePAM 1 MG TAB PO SCH ×3 (08:05→20:21)
[2022-08-26] MEDS: carvediloL 25 MG TAB PO SCH ×2 (08:06→20:22)
[2022-08-26] MEDS: HEPARIN SOD 5,000 UNIT/0.5 ML VIAL SQ SCH ×2 (08:06→20:21)
[2022-08-26] MEDS: amLODIPine BESYLATE 5 MG TAB PO SCH (08:06)
[2022-08-26] MEDS: TAMSULOSIN HCL 0.4 MG CAP PO SCH (08:06)
[2022-08-26] MEDS: TOPIRAMATE 25 MG TAB PO SCH ×2 (08:06→20:23)
[2022-08-26] MEDS: lisinopril 40 MG TAB PO SCH (08:06)
[2022-08-26] MEDS: CLOPIDOGREL BISULFATE 75 MG TAB PO SCH (08:06)
[2022-08-26] MEDS: GABAPENTIN 300 MG CAP PO SCH ×2 (08:06→20:24)
[2022-08-26] MEDS: PANTOprazole 40 MG TAB PO SCH (08:06)
[2022-08-26] MEDS: DULoxetine HCL 60 MG CAP PO SCH (08:06)
[2022-08-26] MEDS: THIAMINE HCL 100 MG in SYRINGE 9 ML IV SCH (08:06)
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
[2022-08-26] MEDS: FOLIC ACID 1 MG TAB PO SCH (10:52)
--- NOTE | 2022-08-26 15:03 | Hospitalist Progress Note ---
Date of Service August 26, 2022 Assessment & Plan (1) Right-sided chest pain: (2) CAD (coronary artery disease): (3) History of pulmonary embolism: (4) Cervical radiculopathy: (5) Depression: (6) GERD (gastroesophageal reflux disease): (7) BPH (benign prostatic hyperplasia): Plan 67 year old male that presents with right sided chest pain that he describes as 'achy and sore'. Denies jaw pain. Has bilateral arm pain related to cervical decompression. He does report shoulder and headache related to his cervical decompression. His most significant overall subjective complaint is back pain. The patient has history of multilevel surgery to both cervical and lumbar spine. He had been admitted to [facility] in January,, with acute on chronic back pain. Cervical revision surgery planned for October 07, 2022. Currently, taking Trazodone, Vicodin, Topiramate and Gabapentin. He follows with [facility]. Had some trigger point injections in April 2022 under pain management service. Also uses clonazepam for anxiety. Has a H/O of DVT and PE a few months after he fell off of a ladder. For which he was on Eliquis from 11/2019 until 03/2020. Additional past medical history includes CAD status post FRANCY to RCA in 2012. Initial troponin negative. No leukocytosis and all other electrolytes unremarkable.Does not appreciate any EKG changes indicating ischemia. Do not suspect that this is ACS in nature; rather related to complicated pain related to cervical radiculopathy. Chest CTA negative for PE. Doppler ordered to complete PE workup. Pt reports chewing tobacco. Reports drinking whisky 1/5 daily, but a month ago, has only been drinking 4 oz shots x1 per day. Yesterday, he bought a 6 pack of beer and drank two beers. No recreational drug use. Has a medical marijuana card that he does not use very often. Pain management consultation placed. Right-sided chest pain: CAD: H/o AMI: 2013: FRANCY --> RCA;follows with [facility] Takes Plavix; continue Initial Troponin negative; trend x1; do not suspect ACS Lactate negative No ischemic changes on EKG Chest CTA: No acute pulmonary embolus is seen. 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 Pain management consultation placed-appreciate input and recommendation Will have oxycodone as planned and on discharge he will have outpatient intercostal nerve block as before History of sleep apnea Has been noted to be short of breath on waking up at home We will get a nocturnal pulse oximetry History of PE: Completed 3 month course of Eliquis. Completed 04/11/2020. No new DVT and or PE on scans Alcohol abuse: Up until 1 month ago reports drinking whisky 1/5 daily; one month ago, has only been drinking one 4 oz shot daily Yesterday, he bought a 6 pack of beer and drank two beers. No tremors on exam AWSS scale; Thiamine IV and folic acid PO Would benefit from behavioral health liaison conversation regarding AA and alcohol abstinence Does not have any withdrawal symptoms HTN: Takes amlodipine, Coreg, and lisinopril; continue Depression: Takes duloxetine; continue GERD: Takes pantoprazole; continue BPH: Takes tamsulosin; continue Disposition: PCP: Dr. 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 We will get a nocturnal pulse oximetry to make sure he does not to be desaturating at night Review of Systems Review of Systems: All systems reviewed and are unremarkable except as noted below Physical Exam Physical Exam: Lying in bed comfortably Constitutional: well developed, + ill appearing and + obese Eyes: PERRL, conjunctivae normal, anicteric sclerae ENMT: external ear and nose normal, oropharynx normal Neck: trachea midline, no thyromegaly Respiratory: no respiratory distress Auscultation: + diminished lung sounds; no crackles Cardiovascular: Rate/Rhythm: regular rate and regular rhythm; not tachycardic Heart Sounds: normal S1 and normal S2; no murmur Extremities: + edema (1+ edema bilaterally) Gastrointestinal (Abdomen): Inspection/Auscultation: normal bowel sounds; abdomen not distended Percussion/Palpation: abdomen soft; abdomen nontender Musculoskeletal: No acute arthritis involving any of the joint Neurologic: moves all extremities; no focal motor deficits Has peripheral neuropathy Psychiatric: A+Ox3, euthymic affect Lymphatic: no cervical or axillary lymphadenopathy Results & Data Results & Data Vital Signs (Past 12 Hours) Vital Signs Temp Pulse Pulse Resp BP Pulse Ox O2 Del Method 08/26/22 08:00 Room Air 08/26/22 10:56 36.4 C L 67 16 134/83 94 Room Air 08/26/22 08:04 67 08/26/22 07:43 59 L 08/26/22 07:33 36.6 C 65 18 117/69 94 Room Air 08/26/22 03:00 36.6 C 66 20 118/79 94 Room Air Laboratory Results Short CBC 08/26/22 Range/Units 05:56 WBC 5.67 (4.8-10.8) K/ul Hgb 11.2 L (14.0-18.0) g/dl Hct 34.4 L (42.0-52.0) % Plt Count 163 (130-400) K/uL BMP 08/26/22 05:56 Sodium 140 Potassium 3.6 Chloride 109 H Carbon Dioxide 26 BUN 9 Creatinine 0.88 Glucose 134 H Calcium 8.1 L Liver Function 08/26/22 Range/Units 05:56 Total Bilirubin 0.4 (0.2-1.0) mg/dl AST 16 (13-39) U/L ALT 16 (7-52) U/L Alkaline Phosphatase 56 (34-104) U/L Albumin 3.5 (3.4-5.0) gm/dl Urine 08/25/22 Range/Units 18:40 Urine Color Yellow Urine Appearance Clear (Clear) Urine pH 7.5 (4.5-7.5) Ur Specific [place] 1.024 (1.000-1.030) Urine Protein Negative (Negative) Urine Glucose (UA) Negative (Negative) Medications Administered Current Inpatient Medications Acetaminophen (Acetaminophen 325 Mg Tab) 650 mg PO Q4H PRN PRN Reason: Pain or Fever Stop: 09/24/22 18:25 Al Hydrox/Mg Hydrox/Simethicone (Aluminum/Magnesium Susp 30 Ml Udc) 15 ml PO Q4H PRN PRN Reason: Dyspepsia Stop: 09/24/22 18:25 Amlodipine Besylate (Amlodipine Besylate 5 Mg Tab) 10 mg PO QAM [facility] Stop: 09/25/22 08:59 Last Admin: 08/26/22 08:06 Dose: 10 mg Carvedilol (Carvedilol 25 Mg Tab) 25 mg PO BID [facility] Stop: 09/24/22 20:59 Last Admin: 08/26/22 08:06 Dose: 25 mg Chlordiazepoxide HCl (Chlordiazepoxide Hcl 25 Mg Cap) 25 mg PO Q8H [facility] Stop: 08/27/22 16:01 Last Admin: 08/25/22 22:27 Dose: 25 mg Chlordiazepoxide HCl (Chlordiazepoxide Hcl 25 Mg Cap) 25 mg PO Q6H [facility] Stop: 08/26/22 16:01 Last Admin: 08/26/22 10:53 Dose: 25 mg Chlordiazepoxide HCl (Chlordiazepoxide Hcl 10 Mg Cap) 10 mg PO Q8H [facility] Stop: 08/28/22 16:01 Chlordiazepoxide HCl (Chlordiazepoxide Hcl 5 Mg Cap) 5 mg PO Q12H [facility] Stop: 08/29/22 18:01 Clonazepam (Clonazepam 1 Mg Tab) 1 mg PO TID [facility] Stop: 09/24/22 20:59 Last Admin: 08/26/22 13:35 Dose: 1 mg Clopidogrel Bisulfate (Clopidogrel Bisulfate 75 Mg Tab) 75 mg PO QAM [facility] Stop: 09/25/22 08:59 Last Admin: 08/26/22 08:06 Dose: 75 mg Cyclobenzaprine HCl (Cyclobenzaprine Hcl 10 Mg Tab) 10 mg PO HS [facility] Stop: 09/24/22 20:59 Last Admin: 08/25/22 22:17 Dose: 10 mg Duloxetine HCl (Duloxetine Hcl 60 Mg Cap) 60 mg PO QAM [facility] Stop: 09/25/22 08:59 Last Admin: 08/26/22 08:06 Dose: 60 mg Folic Acid (Folic Acid 1 Mg Tab) 1 mg PO QAM [facility] Stop: 09/24/22 19:44 Last Admin: 08/26/22 10:52 Dose: 1 mg Gabapentin (Gabapentin 300 Mg Cap) 900 mg PO BID [facility] Stop: 09/24/22 20:59 Last Admin: 08/26/22 08:06 Dose: 900 mg Heparin Sodium (Porcine) (Heparin Sod 5,000 Unit/0.5 Ml Vial) 5,000 units SQ Q 12 [facility] Stop: 09/24/22 20:59 Last Admin: 08/26/22 08:06 Dose: 5,000 units Thiamine HCl 100 mg/ Syringe 10 mls @ 2 mls/min IV QAM [facility] Stop: 09/24/22 19:59 Last Admin: 08/26/22 08:06 Dose: 2 mls/min Ketorolac Tromethamine (Ketorolac Tromethamine 15 Mg/Ml Vial) 15 mg IV Q6H PRN PRN Reason: Pain Stop: 08/30/22 19:30 Last Admin: 08/25/22 23:30 Dose: 15 mg Lisinopril ([facility] 40 Mg Tab) [facility] Stop: 09/25/22 08:59 Last Admin: 08/26/22 08:06 Dose: 40 mg Lorazepam (Lorazepam 2 Mg/1 Ml Vial) 3 mg IV ONCE PRN; Protocol PRN Reason: EtOH Withdrawal AWSS Score 10+ Lorazepam (Lorazepam 2 Mg/1 Ml Vial) 2 mg IV UD PRN; Protocol PRN Reason: EtOH Withdrawal AWSS Score 8,9 Stop: 09/24/22 21:50 Lorazepam (Lorazepam 2 Mg/1 Ml Vial) 1 mg IV UD PRN; Protocol PRN Reason: EtOH Withdrawal AWSS Score 6,7 Stop: 09/24/22 21:50 Magnesium Hydroxide (Magnesium Hydroxide Susp 30 Ml Udc) 30 ml PO Q12H PRN PRN Reason: Constipation Stop: 09/24/22 18:25 Ondansetron HCl (Ondansetron Inj 2 Mg/Ml 2 Ml Vial) 4 mg IV Q6H PRN PRN Reason: Nausea Stop: 09/24/22 18:25 Oxycodone/Acetaminophen (Oxycodone/Acetaminophen 5mg/325mg Tab) 1 tab PO TID [facility] Stop: 09/09/22 08:59 Last Admin: 08/26/22 13:36 Dose: 1 tab Pantoprazole Sodium (Pantoprazole 40 Mg Tab) 40 mg PO QAM [facility] Stop: 09/25/22 08:59 Last Admin: 08/26/22 08:06 Dose: 40 mg Polyethylene Glycol (Polyethylene (Miralax) 17 Gm Pack) 17 gm PO DAILY PRN PRN Reason: Constipation Stop: 09/24/22 18:25 Rosuvastatin Calcium (Rosuvastatin Calcium 20 Mg Tab) 20 mg PO [facility] Stop: 09/24/22 20:59 Last Admin: 08/25/22 22:23 Dose: 20 mg Tamsulosin HCl (Tamsulosin Hcl 0.4 Mg Cap) 0.4 mg PO QAM [facility] Stop: 09/25/22 08:59 Last Admin: 08/26/22 08:06 Dose: 0.4 mg Topiramate (Topiramate 25 Mg Tab) 25 mg PO BID [facility] Stop: 09/24/22 20:59 Last Admin: 08/26/22 08:06 Dose: 25 mg Trazodone HCl (Trazodone Hcl 50 Mg Tab) 75 mg PO [facility] Stop: 09/24/22 20:59 Last Admin: 08/25/22 22:23 Dose: 75 mg
[2022-08-26] MEDS: KETOROLAC TROMETHAMINE 15 MG/ML VIAL IV PRN (19:38)
[2022-08-26] MEDS: CYCLOBENZAPRINE HCL 10 MG TAB PO SCH (20:21)
[2022-08-26] MEDS: traZODone HCL 50 MG TAB PO SCH (20:22)
[2022-08-26] MEDS: ROSUVASTATIN CALCIUM 20 MG TAB PO SCH (20:23)
[2022-08-27] MEDS: KETOROLAC TROMETHAMINE 15 MG/ML VIAL IV PRN ×2 (03:44→17:45)
[2022-08-27] MEDS: chlordiazePOXIDE HCl 25 MG CAP PO SCH ×2 (08:11→16:24)
[2022-08-27] MEDS: oxyCODONE/ACETAMINOPHEN 5mg/325mg TAB PO SCH ×3 (08:11→20:34)
[2022-08-27] MEDS: clonazePAM 1 MG TAB PO SCH ×3 (08:11→20:34)
[2022-08-27] MEDS: carvediloL 25 MG TAB PO SCH ×2 (08:12→20:33)
[2022-08-27] MEDS: HEPARIN SOD 5,000 UNIT/0.5 ML VIAL SQ SCH ×2 (08:12→20:35)
[2022-08-27] MEDS: GABAPENTIN 300 MG CAP PO SCH ×2 (08:12→20:34)
[2022-08-27] MEDS: TOPIRAMATE 25 MG TAB PO SCH ×2 (08:12→20:35)
[2022-08-27] MEDS: PANTOprazole 40 MG TAB PO SCH (08:12)
[2022-08-27] MEDS: THIAMINE HCL 100 MG in SYRINGE 9 ML IV SCH (08:12)
[2022-08-27] MEDS: lisinopril 40 MG TAB PO SCH (08:13)
[2022-08-27] MEDS: DULoxetine HCL 60 MG CAP PO SCH (08:13)
[2022-08-27] MEDS: amLODIPine BESYLATE 5 MG TAB PO SCH (08:13)
[2022-08-27] MEDS: CLOPIDOGREL BISULFATE 75 MG TAB PO SCH (08:13)
[2022-08-27] MEDS: TAMSULOSIN HCL 0.4 MG CAP PO SCH (08:13)
[2022-08-27] MEDS: FOLIC ACID 1 MG TAB PO SCH (08:13)
--- NOTE | 2022-08-27 12:20 | Hospitalist Progress Note ---
Date of Service August 27, 2022 Assessment & Plan (1) Right-sided chest pain: (2) CAD (coronary artery disease): (3) History of pulmonary embolism: (4) Cervical radiculopathy: (5) Depression: (6) GERD (gastroesophageal reflux disease): (7) BPH (benign prostatic hyperplasia): Plan 67 year old male that presents with right sided chest pain that he describes as 'achy and sore'. Denies jaw pain. Has bilateral arm pain related to cervical decompression. He does report shoulder and headache related to his cervical decompression. His most significant overall subjective complaint is back pain. The patient has history of multilevel surgery to both cervical and lumbar spine. He had been admitted to [facility] in January,, with acute on chronic back pain. Cervical revision surgery planned for October 07, 2022. Currently, taking Trazodone, Vicodin, Topiramate and Gabapentin. He follows with [facility]. Had some trigger point injections in April 2022 under pain management service. Also uses clonazepam for anxiety. Has a H/O of DVT and PE a few months after he fell off of a ladder. For which he was on Eliquis from 11/2019 until 03/2020. Additional past medical history includes CAD status post FRANCY to RCA in 2012. Initial troponin negative. No leukocytosis and all other electrolytes unremarkable.Does not appreciate any EKG changes indicating ischemia. Do not suspect that this is ACS in nature; rather related to complicated pain related to cervical radiculopathy. Chest CTA negative for PE. Doppler ordered to complete PE workup. Pt reports chewing tobacco. Reports drinking whisky 1/5 daily, but a month ago, has only been drinking 4 oz shots x1 per day. Yesterday, he bought a 6 pack of beer and drank two beers. No recreational drug use. Has a medical marijuana card that he does not use very often. Pain management consultation placed. Right-sided chest pain: CAD: H/o AMI: 2013: FRANCY --> RCA;follows with [facility] Takes Plavix; continue Initial Troponin negative; trend x1; do not suspect ACS Lactate negative No ischemic changes on EKG Chest CTA: No acute pulmonary embolus is seen. 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 He uses medical marijuana as well [place] given in ED Ketorolac ordered as needed Was admitted to [facility] in January 2022 with acute on chronic back pain Cervical Decompression revision surgery scheduled for 09/2022. Pain management consultation placed-appreciate input and recommendation Will have oxycodone as planned and on discharge he will have outpatient intercostal nerve block as before Denies any chest pain at rest History of sleep apnea Has been noted to be short of breath on waking up at home We will get a nocturnal pulse oximetry Nocturnal pulse oximetry showed 0 desaturation events of more than 3 minutes Advised to continue CPAP at home Not sure if he will benefit from any oxygen administration at night History of PE: Completed 3 month course of Eliquis. Completed 04/11/2020. No new DVT and or PE on scans Alcohol abuse: Up until 1 month ago reports drinking whisky 1/5 daily; one month ago, has only been drinking one 4 oz shot daily Yesterday, he bought a 6 pack of beer and drank two beers. No tremors on exam AWSS scale; Thiamine IV and folic acid PO Would benefit from behavioral health liaison conversation regarding AA and alcohol abstinence Does not have any withdrawal symptoms HTN: Takes amlodipine, Coreg, and lisinopril; continue Depression: Takes duloxetine; continue GERD: Takes pantoprazole; continue BPH: Takes tamsulosin; continue Disposition: PCP: Dr. 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 We will get a nocturnal pulse oximetry to make sure he does not to be desaturating at night 08/27/2022 The patient was seen and examined in medical telemetry unit He has been drowsy and sleepy most of the time I have been seeing him He has had nocturnal pulse oximetry and most likely he is going to require oxygen at nighttime Has not been out of bed yet and will ask PT and OT evaluation Review of Systems Review of Systems: All systems reviewed and are unremarkable except as noted below Physical Exam Physical Exam: Lying in bed comfortably Constitutional: well developed, + ill appearing and + obese Eyes: PERRL, conjunctivae normal, anicteric sclerae ENMT: external ear and nose normal, oropharynx normal Neck: trachea midline, no thyromegaly Respiratory: no respiratory distress Auscultation: + diminished lung sounds; no crackles Cardiovascular: Rate/Rhythm: regular rate and regular rhythm; not tachycardic Heart Sounds: normal S1 and normal S2; no murmur Extremities: + edema (1+ edema bilaterally) Gastrointestinal (Abdomen): Inspection/Auscultation: normal bowel sounds; abdomen not distended Percussion/Palpation: abdomen soft; abdomen nontender Musculoskeletal: No acute arthritis involving any of the joint Neurologic: moves all extremities; no focal motor deficits Psychiatric: A+Ox3, euthymic affect Lymphatic: no cervical or axillary lymphadenopathy Results & Data Results & Data Vital Signs (Past 12 Hours) Vital Signs Temp Pulse Pulse Pulse Resp BP Pulse Ox 08/27/22 08:00 08/27/22 10:44 36.5 C 64 18 138/81 95 08/27/22 08:06 69 08/27/22 07:36 36.6 C 59 L 18 115/75 94 08/27/22 07:09 65 08/27/22 04:00 36.5 C 60 20 119/77 95 08/27/22 03:18 61 90 08/27/22 01:15 62 O2 Del Method 08/27/22 08:00 Room Air 08/27/22 10:44 Room Air 08/27/22 08:06 08/27/22 07:36 Room Air 08/27/22 07:09 08/27/22 04:00 Room Air 08/27/22 03:18 Room Air 08/27/22 01:15 Medications Administered Current Inpatient Medications Acetaminophen (Acetaminophen 325 Mg Tab) 650 mg PO Q4H PRN PRN Reason: Pain or Fever Stop: 09/24/22 18:25 Al Hydrox/Mg Hydrox/Simethicone (Aluminum/Magnesium Susp 30 Ml Udc) 15 ml PO Q4H PRN PRN Reason: Dyspepsia Stop: 09/24/22 18:25 Amlodipine Besylate (Amlodipine Besylate 5 Mg Tab) 10 mg PO QAM [facility] Stop: 09/25/22 08:59 Last Admin: 08/27/22 08:13 Dose: 10 mg Carvedilol (Carvedilol 25 Mg Tab) 25 mg PO BID [facility] Stop: 09/24/22 20:59 Last Admin: 08/27/22 08:12 Dose: 25 mg Chlordiazepoxide HCl (Chlordiazepoxide Hcl 25 Mg Cap) 25 mg PO Q8H [facility] Stop: 08/27/22 16:01 Last Admin: 08/27/22 08:11 Dose: 25 mg Chlordiazepoxide HCl (Chlordiazepoxide Hcl 10 Mg Cap) 10 mg PO Q8H [facility] Stop: 08/28/22 16:01 Chlordiazepoxide HCl (Chlordiazepoxide Hcl 5 Mg Cap) 5 mg PO Q12H [facility] Stop: 08/29/22 18:01 Clonazepam (Clonazepam 1 Mg Tab) 1 mg PO TID [facility] Stop: 09/24/22 20:59 Last Admin: 08/27/22 08:11 Dose: 1 mg Clopidogrel Bisulfate (Clopidogrel Bisulfate 75 Mg Tab) 75 mg PO QAM [facility] Stop: 09/25/22 08:59 Last Admin: 08/27/22 08:13 Dose: 75 mg Cyclobenzaprine HCl (Cyclobenzaprine Hcl 10 Mg Tab) 10 mg PO HS [facility] Stop: 09/24/22 20:59 Last Admin: 08/26/22 20:21 Dose: 10 mg Duloxetine HCl (Duloxetine Hcl 60 Mg Cap) 60 mg PO QAM [facility] Stop: 09/25/22 08:59 Last Admin: 08/27/22 08:13 Dose: 60 mg Folic Acid (Folic Acid 1 Mg Tab) 1 mg PO QAM [facility] Stop: 09/24/22 19:44 Last Admin: 08/27/22 08:13 Dose: 1 mg Gabapentin (Gabapentin 300 Mg Cap) 900 mg PO BID [facility] Stop: 09/24/22 20:59 Last Admin: 08/27/22 08:12 Dose: 900 mg Heparin Sodium (Porcine) (Heparin Sod 5,000 Unit/0.5 Ml Vial) 5,000 units SQ Q12 [facility] Stop: 09/24/22 20:59 Last Admin: 08/27/22 08:12 Dose: 5,000 units Thiamine HCl 100 mg/ Syringe 10 mls @ 2 mls/min IV QAM [facility] Stop: 09/24/22 19:59 Last Admin: 08/27/22 08:12 Dose: 2 mls/min Ketorolac Tromethamine (Ketorolac Tromethamine 15 Mg/Ml Vial) 15 mg IV Q6H PRN PRN Reason: Pain Stop: 08/30/22 19:30 Last Admin: 08/27/22 03:44 Dose: 15 mg Lisinopril (Lisinopril 40 Mg Tab) [facility] Stop: 09/25/22 08:59 Last Admin: 08/27/22 08:13 Dose: 40 mg Lorazepam (Lorazepam 2 Mg/1 Ml Vial) 3 mg IV ONCE PRN; Protocol PRN Reason: EtOH Withdrawal AWSS Score 10+ Lorazepam (Lorazepam 2 Mg/1 Ml Vial) 2 mg IV UD PRN; Protocol PRN Reason: EtOH Withdrawal AWSS Score 8,9 Stop: 09/24/22 21:50 Lorazepam (Lorazepam 2 Mg/1 Ml Vial) 1 mg IV UD PRN; Protocol PRN Reason: EtOH Withdrawal AWSS Score 6,7 Stop: 09/24/22 21:50 Magnesium Hydroxide (Magnesium Hydroxide Susp 30 Ml Udc) 30 ml PO Q12H PRN PRN Reason: Constipation Stop: 09/24/22 18:25 Last Admin: 08/26/22 15:36 Dose: 30 ml Ondansetron HCl (Ondansetron Inj 2 Mg/Ml 2 Ml Vial) 4 mg IV Q6H PRN PRN Reason: Nausea Stop: 09/24/22 18:25 Oxycodone/Acetaminophen (Oxycodone/Acetaminophen 5mg/325mg Tab) 1 tab PO TID [facility] Stop: 09/09/22 08:59 Last Admin: 08/27/22 08:11 Dose: 1 tab Pantoprazole Sodium (Pantoprazole 40 Mg Tab) 40 mg PO QAM [facility] Stop: 09/25/22 08:59 Last Admin: 08/27/22 08:12 Dose: 40 mg Polyethylene Glycol (Polyethylene (Miralax) 17 Gm Pack) 17 gm PO DAILY PRN PRN Reason: Constipation Stop: 09/24/22 18:25 Rosuvastatin Calcium (Rosuvastatin Calcium 20 Mg Tab) 20 mg PO HS [facility] Stop: 09/24/22 20:59 Last Admin: 08/26/22 20:23 Dose: 20 mg Tamsulosin HCl (Tamsulosin Hcl 0.4 Mg Cap) 0.4 mg [facility] Stop: 09/25/22 08:59 Last Admin: 08/27/22 08:13 Dose: 0.4 mg Topiramate (Topiramate 25 Mg Tab) 25 mg PO BID [facility] Stop: 09/24/22 20:59 Last Admin: 08/27/22 08:12 Dose: 25 mg Trazodone HCl (Trazodone Hcl 50 Mg Tab) 75 mg PO [facility] Stop: 09/24/22 20:59 Last Admin: 08/26/22 20:22 Dose: 75 mg
[2022-08-27] MEDS: CYCLOBENZAPRINE HCL 10 MG TAB PO SCH (20:34)
[2022-08-27] MEDS: ROSUVASTATIN CALCIUM 20 MG TAB PO SCH (20:35)
[2022-08-27] MEDS: traZODone HCL 50 MG TAB PO SCH (20:35)
[2022-08-27] MEDS ORDERED: POLYETHYLENE (MIRALAX) 17 GM PACK PO STA (22:17)
[2022-08-27] MEDS ORDERED: DOCUSATE SODIUM/SENNA 50/8.6MG TAB PO ONE (22:30)
[2022-08-28] MEDS: KETOROLAC TROMETHAMINE 15 MG/ML VIAL IV PRN ×2 (02:25→17:05)
[2022-08-28] MEDS: DOCUSATE SODIUM/SENNA 50/8.6MG TAB PO SCH (08:02)
[2022-08-28] MEDS: CLOPIDOGREL BISULFATE 75 MG TAB PO SCH (08:02)
[2022-08-28] MEDS: FOLIC ACID 1 MG TAB PO SCH (08:02)
[2022-08-28] MEDS: TAMSULOSIN HCL 0.4 MG CAP PO SCH (08:02)
[2022-08-28] MEDS: PANTOprazole 40 MG TAB PO SCH (08:02)
[2022-08-28] MEDS: TOPIRAMATE 25 MG TAB PO SCH ×2 (08:02→20:38)
[2022-08-28] MEDS: DULoxetine HCL 60 MG CAP PO SCH (08:02)
[2022-08-28] MEDS: HEPARIN SOD 5,000 UNIT/0.5 ML VIAL SQ SCH ×2 (08:02→20:38)
[2022-08-28] MEDS: amLODIPine BESYLATE 5 MG TAB PO SCH (08:02)
[2022-08-28] MEDS: lisinopril 40 MG TAB PO SCH (08:02)
[2022-08-28] MEDS: GABAPENTIN 300 MG CAP PO SCH ×2 (08:03→20:38)
[2022-08-28] MEDS: carvediloL 25 MG TAB PO SCH ×2 (08:03→20:37)
[2022-08-28] MEDS: THIAMINE HCL 100 MG TAB PO SCH (08:03)
[2022-08-28] MEDS: oxyCODONE/ACETAMINOPHEN 5mg/325mg TAB PO SCH ×3 (08:06→20:37)
[2022-08-28] MEDS: clonazePAM 1 MG TAB PO SCH ×3 (08:06→20:37)
[2022-08-28 09:32] LABS: Hematocrit (blood only) 35.8 % (42.0-52.0); Hemoglobin 11.6 g/dl (14.0-18.0); Mean Corpuscular Hemoglobin 28.4 pg (25.0-34.0); Mean Corpuscular Hgb Conc 32.4 g/dL (32.0-36.0); Mean Corpuscular Volume 87.5 fL (80.0-100.0); Mean Platelet Volume 9.3 fL (9.4-12.4); Platelet Count 183 K/uL (130-400); RDW Coefficient of Variation 14.7 % (11.5-14.5); Red Blood Count 4.09 M/uL (4.70-6.10); White Blood Count 4.82 K/ul (4.8-10.8)
--- NOTE | 2022-08-28 18:42 | Hospitalist Progress Note ---
Date of Service August 28, 2022 Assessment & Plan (1) Right-sided chest pain: (2) CAD (coronary artery disease): (3) History of pulmonary embolism: (4) Cervical radiculopathy: (5) Depression: (6) GERD (gastroesophageal reflux disease): (7) BPH (benign prostatic hyperplasia): Plan 67yoM with R sided schest pain, worked up and determined to be related to his Hx of intercostal neuralgia. Stable for discharge, will be discharged home. Right-sided chest pain: CAD: H/o AMI: Per pain management- pain likely related to intercostal neuralgia. 2013: FRANCY --> RCA;follows with [facility], on Troponins negative, Lactate negative, No ischemic changes on EKG Chest CTA: No acute pulmonary embolus is seen. 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 He uses medical marijuana as well [place] given in ED Ketorolac ordered as needed Was admitted to [facility] in January 2022 with acute on chronic back pain Cervical Decompression revision surgery scheduled for 09/2022. Pain management consultation placed-appreciate input and recommendation Will have oxycodone as planned and on discharge he will have outpatient intercostal nerve block as before Currently stable. History of sleep apnea Has been noted to be short of breath on waking up at home We will get a nocturnal pulse oximetry and pt will be discharged with the same Advised to continue CPAP at home Questionable benefit from any oxygen administration at night History of PE: Currently only on plavix, no other anticoagulation Alcohol abuse: Daily drinker of whiskey until a month ago AWSS scale; Thiamine IV and folic acid PO Would benefit from behavioral health liaison conversation regarding AA and al cohol abstinence Currently stable HTN: Takes amlodipine, Coreg, and lisinopril; continue Depression: Takes duloxetine; continue GERD: Takes pantoprazole; continue BPH: Takes tamsulosin; continue Disposition: PCP: Dr. Gaixola CODE STATUS: DNR/DNI VTE prophylaxis: Heparin SQ Admission and Anticipated Discharge Date Admission Date: August 25, 2022 Subjective Pt states that he feels tired and would like to be discharged tomorrow instead of today. Denies discomfort at this time. Review of Systems Review of Systems: All systems reviewed & are unremarkable except as noted in Subjective Physical Exam Physical Exam: General: Alert, appeared drowsy. No acute distress Skin: No noted rashes or bruises Psych: Sleepy Neuro: was able to move appropriately with stimulation HEENT: NC/AT CV: RRR Resp: Breath sounds clear bilaterally, no increased effort of breathing. Abdomen: Soft, nontender, nondistended. Extremities: Slight edema in lower extremities bilaterally. Results & Data Results & Data Vital Signs (Past 12 Hours) Vital Signs Temp Pulse Pulse Pulse Resp BP BP 08/28/22 15:56 36.6 C 61 20 135/75 08/28/22 15:37 60 08/28/22 11:40 08/28/22 11:20 36.5 C 67 16 116/66 08/28/22 08:15 08/28/22 07:53 71 08/28/22 07:28 36.6 C 62 16 105/67 08/28/22 06:58 66 Pulse Ox O2 Del Method 08/28/22 15:56 92 Room Air 08/28/22 15:37 08/28/22 11:40 95 Room Air 08/28/22 11:20 92 Room Air 08/28/22 08:15 Room Air 08/28/22 07:53 08/28/22 07:28 93 Room Air 08/28/22 06:58
[2022-08-28] MEDS: ROSUVASTATIN CALCIUM 20 MG TAB PO SCH (20:37)
[2022-08-28] MEDS: CYCLOBENZAPRINE HCL 10 MG TAB PO SCH (20:37)
[2022-08-28] MEDS: traZODone HCL 50 MG TAB PO SCH (20:37)
[2022-08-29] MEDS: KETOROLAC TROMETHAMINE 15 MG/ML VIAL IV PRN (05:40)
[2022-08-29] MEDS ORDERED: chlordiazePOXIDE HCl 5 MG CAP PO SCH (06:00)
[2022-08-29 07:52] LABS: BUN Creatinine Ratio 14.6 (10-20); Calcium 8.1 mg/dl (8.6-10.3); Creatinine Clr Calc Pharmacy 80.1 ml/min; Est GFR (African American) 87.3 ml/min; Est GFR (Non-African American) 75.3 ml/min; Potassium 3.7 mmol/L (3.5-5.1)
--- NOTE | 2022-08-29 07:59 | Discharge Summary ---
Date of Service August 29, 2022 Admission HPI Per Admitting Provider Mr. Armenta is a 67 year old male that presents to the [facility] today with right sided chest pain that he describes as 'achy and sore'. Denies jaw pain. Has bilateral arm pain related to cervical decompression. He does report shoulder and headache related to his cervical decompression. His most significant overall subjective complaint is back pain. The patient has history of multilevel surgery to both cervical and lumbar spine. He had been admitted to [facility] in January,, with acute on chronic back pain. Cervical revision surgery planned for October 07, 2022. Currently, taking Trazodone, Hydrocodone and Gabapentin. He follows with [facility]. Had some trigger point injections in April 2022 under pain management service. Also uses clonazepam for anxiety. Patient has a history of DVT and PE a few months after he fell off of a ladder. For which he was on Eliquis from 11/2019 until 03/2020. Additional past medical history includes CAD status post FRANCY to RCA in 2012, HTN, HLD, depression, BPH, and GERD.Detailed catheterization report indicates: 40% mid LAD stenosis, 40 to 50% circumflex stenosis, and a dominant right coronary artery with a 50 to 60% stenosis at the proximal edge of the distal RCA stent. Initial troponin negative. No leukocytosis and all other electrolytes unremarkable.Does not appreciate any EKG changes indicating ischemia. Do not suspect that this is ACS in nature; rather related to complicated pain related to cervical radiculopathy. Pt reports chewing tobacco. Reports drinking whisky 1/5 daily, but a month ago, has only been drinking 4 oz shots x1 per day. Yesterday, he bought a 6 pack of beer and drank two beers. No recreational drug use. Has a medical marijuana card that he does not use very often. Patient will be admitted for further evaluation and management. Please see A/P for further details. Admission Exam Per Admitting Provider General:NAD, well nourished, well developed, non-toxic appearing, obese (BMI 33.4) Head:NC AT Eyes: PERRL, EOMI, anicteric sclera, no conjunctival injection Nose:normal, nares patent Mouth:MMM Neck:supple, trachea midline CV:RRR S1 S2 Pulm:CTA b/l Abd/GI:+ BS, soft, ND. TTP RUQ, right side :no [place] Ext:no pretibial edema, peripheral pulses intact MSK:normal bulk and tone Neuro:moving all 4 extremities symmetrically, alert and oriented, no focal deficits. Psych:normal/calm mood and affect Skin:visible skin is warm, dry, and without rash. Pt not fully undressed for exam. Principal Diagnosis Intercostal Neuralgia Discharge Exam General: Alert. No acute distress Skin: No noted rashes or bruises Psych: Appropriate mood Neuro: was able to move appropriately with stimulation HEENT: NC/AT CV: RRR Resp: Breath sounds clear bilaterally, no increased effort of breathing. Abdomen: Soft, nontender, nondistended. Extremities: Slight edema in lower extremities bilaterally. Discharge Data Allergies Allergy/AdvReac Type Severity Reaction Status Date / Time aspirin AdvReac Mild UPSET Verified 07/21/22 13:46 STOMACH Consultations 08/25/22 18:22 ED Decision to Admit Stat 08/26/22 08:00 Consult Pain Management Routine 08/26/22 10:43 Consult Behavioral Health Liaison Routine Ordered Studies 08/25/22 13:40 CT angio chest PE protocol Stat 08/25/22 18:50 US venous doppler LE BI Routine Hospital Course (1) Right-sided chest pain: (2) CAD (coronary artery disease): (3) History of pulmonary embolism: (4) Cervical radiculopathy: (5) Depression: (6) GERD (gastroesophageal reflux disease): (7) BPH (benign prostatic hyperplasia): Plan 67yoM with R sided chest pain and negative cardiac workup. Chest pain determined to be related to his Hx of intercostal neuralgia. Right-sided chest pain: CAD: H/o AMI: Per pain management- pain likely related to intercostal neuralgia. 2013: FRANCY --> RCA;follows with [facility], on plavix Troponins negative, Lactate negative, No ischemic changes on EKG Chest CTA: No acute pulmonary embolus is seen. Linear filling defect in the right lower lobar artery may represent remote prior pulmonary embolus CXR: Negative for acute cardiopulmonary disease BL LE doppler US to complete PE workup-negative for any DVT Per pain management, continue with narcotic rotation -pt will follow up with pain management after discharge. Pt states he has quite a bit of hydrocodone and tramadol at home. On day of discharge pain management in agreement with discharging home with use of home hydrocodone and tramadol and following up in pain management clinic. 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 He uses medical marijuana as well [place] given in ED Ketorolac ordered as needed Was admitted to [facility] in January 2022 with acute on chronic back pain Cervical Decompression revision surgery scheduled for 09/2022. Per pain management, continue with narcotic rotation -pt will follow up with pain management after discharge. Pt states he has quite a bit of hydrocodone and tramadol at home. On day of discharge pain management in agreement with discharging home with use of home hydrocodone and tramadol and following up in pain management clinic. On discharge he will have outpatient intercostal nerve block as before. Currently stable. History of sleep apnea Has been noted to be short of breath on waking up at home Discharged with nocturnal pulse oximeter. Questionable benefit from any oxygen administration at night History of PE: Currently only on plavix, no other anticoagulation Alcohol abuse: Daily drinker of whiskey until a month ago AWSS scale; Thiamine IV and folic acid PO PCP follow up for resources for cessation. Currently stable HTN: Takes amlodipine, Coreg, and lisinopril; continue Depression: Takes duloxetine; continue GERD: Takes pantoprazole; continue BPH: Takes tamsulosin; continue Total Time Total Time Spent Total Time Spent (In Minutes): > 30 minutes Discharge Plan Discharge Items Patient Disposition: Home - Self-Care Reason For Visit: RIGHT SIDED CHEST PAIN Discharge Diagnosis: Intercostal Neuralgia Activity: Per Instructions section Non-emergency contact: Primary Care Provider and Pain Management Call non-emergency contact if: your symptoms worsen and your pain is not controlled Follow-up/Referrals: Noy Gaxiola MD [Primary Care Provider] - (Date & Time 09/05/2022 1:00 PM Provider Noy Gaxiola MD Department Family Medicine [facility] ) Diet: Heart Healthy Addtl Attending Provider Instructions: You are being discharged home after being evaluated for right sided chest pain that we believe is caused by your intercostal neuralgia. Please keep follow up with pain management as you are scheduled on the 04 of September. Please also keep follow up with your primary care provider as scheduled. As discussed on the day of discharge, you noted that you had hydrocodone at home as well as tramadol. Please continue to take those medications as prescribed and keep follow up with Pain Management as scheduled for any further changes. They were contacted today and are aware. Please also be careful with the concurrent use of klonipin and gabapentin. We also discharged you with a nocturnal pulse oximeter for nighttime use. Please keep followup with your primary care provider. Pending Studies at Discharge: No Stand-Alone Forms: My [facility], Smoking Cessation Medications and DC Order Prescriptions: Continued sennosides [senna] 8.6 mg tablet 8.6 mg PO BID PRN (Reason: Constipation) clopidogrel [Plavix] 75 mg tablet 75 mg PO QAM lisinopril 40 mg tablet 40 mg PO QAM clonazepam [Klonopin] 1 mg tablet 1 mg PO TID trazodone 150 mg tablet 75 mg PO HS tamsulosin [Flomax] 0.4 mg capsule 0.4 mg PO QAM duloxetine [Cymbalta] 60 mg capsule,delayed release(DR/EC) 60 mg PO QAM rosuvastatin [Crestor] 20 mg tablet 20 mg PO HS medical marijuana 1 dose inhalation UD PRN (Reason: pain, anxiety) cyclobenzaprine 10 mg tablet 10 mg PO HS tramadol 50 mg tablet 50 mg PO BID PRN (Reason: pain) Qty: 30 0RF Rx Instructions: In addition to the tramadol, take acetaminophen either regular strength or extra, 2 pills. hydrocodone-acetaminophen 5-325 mg tablet 1 tab PO TID Qty: 90 0RF Rx Instructions: ONGOING THERAPY carvedilol 25 mg tablet 25 mg PO BID gabapentin 600 mg tablet 900 mg PO BID topiramate 25 mg tablet 25 mg PO BID amlodipine 10 mg tablet 10 mg PO QAM pantoprazole 40 mg tablet,delayed release (DR/EC) 40 mg PO QAM milk thistle 1 cap PO BID Discharge Orders: Discharge Order (Routine); Ordered 08/29/22 Ordered By: Francie Daniels Admission Data Admit Date/Time: 08/25/22 18:26 Attending Provider: Francie Daniels Admit Provider: Judy Celaya Primary Care Provider: Noy Gaxiola Other Providers: Judy Celaya ; Piotr Vela ; Elidia Shaw
[2022-08-29] MEDS: lisinopril 40 MG TAB PO SCH (08:28)
[2022-08-29] MEDS: DOCUSATE SODIUM/SENNA 50/8.6MG TAB PO SCH (08:28)
[2022-08-29] MEDS: TAMSULOSIN HCL 0.4 MG CAP PO SCH (08:28)
[2022-08-29] MEDS: DULoxetine HCL 60 MG CAP PO SCH (08:29)
[2022-08-29] MEDS: amLODIPine BESYLATE 5 MG TAB PO SCH (08:29)
[2022-08-29] MEDS: THIAMINE HCL 100 MG TAB PO SCH (08:29)
[2022-08-29] MEDS: CLOPIDOGREL BISULFATE 75 MG TAB PO SCH (08:29)
[2022-08-29] MEDS: TOPIRAMATE 25 MG TAB PO SCH (08:29)
[2022-08-29] MEDS: carvediloL 25 MG TAB PO SCH (08:29)
[2022-08-29] MEDS: FOLIC ACID 1 MG TAB PO SCH (08:30)
[2022-08-29] MEDS: GABAPENTIN 300 MG CAP PO SCH (08:30)
[2022-08-29] MEDS: PANTOprazole 40 MG TAB PO SCH (08:31)
[2022-08-29] MEDS: HEPARIN SOD 5,000 UNIT/0.5 ML VIAL SQ SCH (08:31)
[2022-08-29] MEDS: oxyCODONE/ACETAMINOPHEN 5mg/325mg TAB PO SCH ×2 (08:35→13:43)
[2022-08-29] MEDS: clonazePAM 1 MG TAB PO SCH ×2 (08:36→13:43)
== END 2022-08-29 15:55 | disposition home or self-care (01) | DRG 74 ==
LOC: ED 12:08 → 2N 18:26 → SUATTDRO 18:26 → 2N 21:14

== ENCOUNTER 2022-10-07 05:52 | Inpatient (IN) ==
--- NOTE | 2022-07-22 13:48 | PAT Medication Instructions ---
Medication Instructions Date of Service July 22, 2022 Home Medications Medication Instructions Recorded hydrocodone 5 mg-acetaminophen 325 1 tab PO TID #90 tabs 06/30/ mg tablet clopidogrel 75 mg tablet (Plavix) 75 mg PO QAM lisinopril 40 mg tablet 40 mg PO QAM sennosides 8.6 mg tablet (senna) 8.6 mg PO BID PRN tamsulosin 0.4 mg capsule (Flomax) 0.4 mg PO QAM clonazepam 1 mg tablet (Klonopin) 1 mg PO TID duloxetine 60 mg capsule,delayed release (Cymbalta) 60 mg PO QAM trazodone 150 mg tablet 75 mg PO HS rosuvastatin 20 mg tablet (Crestor) 20 mg PO HS amlodipine 10 mg tablet 10 mg PO QAM carvedilol 25 mg tablet 25 mg PO BID gabapentin 600 mg tablet 900 mg PO BID pantoprazole 40 mg tablet,delayed release 40 mg PO QAM topiramate 25 mg tablet 25 mg PO BID medical marijuana 1 dose inhalation UD PRN cyclobenzaprine 10 mg tablet 10 mg PO HS hydrocodone 5 mg-acetaminophen 325 mg tablet 1 tab PO TID milk thistle 1 cap PO BID ASK your prescriber and surgeon clopidogrel 75 mg tablet (Plavix) 75 mg PO QAM STOP taking 2 weeks before surgery (or as soon as possible if surgery is within 2 weeks) milk thistle 1 cap PO BID DO NOT take the morning of surgery lisinopril 40 mg tablet 40 mg PO QAM sennosides 8.6 mg tablet (senna) 8.6 mg PO BID PRN medical marijuana 1 dose inhalation UD PRN Take morning of surgery With a small sip of water, OTHERWISE NOTHING TO EAT OR DRINK AFTER MIDNIGHT: tamsulosin 0.4 mg capsule (Flomax) 0.4 mg PO QAM clonazepam 1 mg tablet (Klonopin) 1 mg PO TID duloxetine 60 mg capsule,delayed release (Cymbalta) 60 mg PO QAM amlodipine 10 mg tablet 10 mg PO QAM carvedilol 25 mg tablet 25 mg PO BID gabapentin 600 mg tablet 900 mg PO BID pantoprazole 40 mg tablet,delayed release 40 mg PO QAM topiramate 25 mg tablet 25 mg PO BID hydrocodone 5 mg-acetaminophen 325 mg tablet 1 tab PO TID Take evening before surgery sennosides 8.6 mg tablet (senna) 8.6 mg PO BID PRN(if needed) clonazepam 1 mg tablet (Klonopin) 1 mg PO TID trazodone 150 mg tablet 75 mg PO HS rosuvastatin 20 mg tablet (Crestor) 20 mg PO HS carvedilol 25 mg tablet 25 mg PO BID gabapentin 600 mg tablet 900 mg PO BID topiramate 25 mg tablet 25 mg PO BID cyclobenzaprine 10 mg tablet 10 mg PO HS hydrocodone 5 mg-acetaminophen 325 mg tablet 1 tab PO TID Other Notes If you have any questions please call us at [phone] or [phone] or [phone] or [phone]
--- NOTE | 2022-07-31 15:09 | Anesthesiology Consultation ---
Date of Service July 31, 2022 Assessment & Plan (1) Encounter for pre-operative examination: Plan - awaiting PCP and cardiology clearances. Optimization forms and PAT testing to be faxed. - Case discussed with Dr. Nguyễn who advised patient to have both PCP and cardiology clearances prior to surgery. Patient and surgeon's office made aware. - Pt reports fall 07/26/22 when he tripped on a chair leg, hit head. Denies LOC, denies any new/altered symptoms. He is accompanied today by Ce who states pt has acted normally prior to and since fall. They were instructed to f/u with PCP and report to ER for any new symptoms. They verbalized understanding and denied questions or concerns. Alexus with PCP office made aware of this in detail as well as reported 1/5th heavy liquor daily alcohol intake. He was advised will need PCP clearance prior to surgery, surgeon's office made aware. - alcohol intake: 1/5th hard liquor daily. - cardiology 02/20/22 [facility]: "...difficult to control hypertension, with history of coronary heart disease and past myocardial infarction...2012...presence of a 40% mid LAD stenosis, 40 to 50% circumflex stenosis, and a dominant RCA with a 50- 60% stenosis at the proximal edge of the distal RCA stent...found to not be hemodynamically significant at that time and ongoing medical management was pursued...chronic pain of his sternum...dates back to a year and half ago when he fell from a height...HTN, goal below 140/90...continue present treatment including chronic clopidogrel monotherapy which has been his routine..." Chart Review Chart Review: Pending: Refer to Additional Notes / Consult section and Patient seen in Pre Admission Testing Teaching & Discussion Pre-Anesthesia Teaching/Discussion Notes: Instructed NPO after midnight before surgery, except medications with 15 cc of water. Medication instructions provided according to the PAT guidelines. History Surgery Operation Date: 08/12/22 07:15 Proposed Procedures p C7-T1 Anterior Cervical Discectomy and Fusion, Removal of C5, C6, C7 Hardware - Anibal Tracy MD s C7-T1 Posterior Decompression and T1-T2 Posterior Fusion, Post Segmental Instrumentation C5-C6, C6-C7. C7-T1,T1-T2 Spinal Cord Monitoring - Anibal Tracy MD Height/Weight Height: 5 ft 8 in Weight: 91.626 kg Allergies Allergy/AdvReac Type Severity Reaction Status Date / Time aspirin AdvReac Mild UPSET Verified 07/21/22 13:46 STOMACH Medications Home Medications Medication Instructions Recorded Confirmed Last Taken clopidogrel 75 mg tablet (Plavix) 75 mg PO QAM 10/28/17 07/21/22 Unknown lisinopril 40 mg tablet 40 mg PO QAM 10/28/17 07/21/22 Unknown sennosides 8.6 mg tablet (senna) 8.6 mg PO BID PRN Constipation 10/28/17 07/21/22 Unknown tamsulosin 0.4 mg capsule (Flomax) 0.4 mg PO QAM 05/04/18 07/21/22 Unknown clonazepam 1 mg tablet (Klonopin) 1 mg PO TID 11/08/18 07/21/22 Unknown duloxetine 60 mg capsule,delayed 60 mg PO QAM 06/21/19 07/21/22 Unknown release (Cymbalta) trazodone 150 mg tablet 75 mg PO HS 06/21/19 07/21/22 Unknown rosuvastatin 20 mg tablet (Crestor) 20 mg PO HS 12/01/19 07/21/22 Unknown amlodipine 10 mg tablet 10 mg PO QAM 01/27/22 07/21/22 Unknown carvedilol 25 mg tablet 25 mg PO BID 01/27/22 07/21/22 Unknown gabapentin 600 mg tablet 900 mg PO BID 01/27/22 07/21/22 Unknown pantoprazole 40 mg tablet,delayed 40 mg PO QAM 01/27/22 07/21/22 Unknown release topiramate 25 mg tablet 25 mg PO BID 01/27/22 07/21/22 Unknown medical marijuana 1 dose inhalation UD PRN pain, 04/02/22 07/21/22 Unknown anxiety cyclobenzaprine 10 mg tablet 10 mg PO HS 05/21/22 07/21/22 Unknown milk thistle 1 cap PO BID 07/21/22 07/21/22 Unknown hydrocodone 5 mg-acetaminophen 325 1 tab PO TID #90 tabs 07/28/22 Unknown mg tablet Past Medical History Medical History (Updated 07/31/22 @ 15:16 by Rebecca Nur PA-C) CAD (coronary artery disease) s/p FRANCY to RCA 2012, follows with [facility] cardiology Cervical disc disorder Cervical post-laminectomy syndrome Cervical radiculopathy Chronic hip pain after total replacement of right hip joint Deep vein thrombosis 2020, following fall from ladder Dyslipidemia Dystonic movements Esophageal dysmotility History of GI bleed HTN (hypertension) controlled, stable per pt Lumbar postlaminectomy syndrome Myocardial Infarction 2012, s/p FRANCY to RCA Opioid dependence Painful total knee replacement (08/22/13) Prediabetes Pulmonary embolism 2020 "came from my legs, a clot broke loose">currently on plavix Rib fracture 2020; "fell of ladder 14 ft up; not sure if they are still fractured, but still has a lot of rib pain" Sleep apnea no device Stroke ~between ages of [age], went to family Dr because he couldn't see or hear "very well,"; BP was really high>"when he was feeling better, they had him go to see a Dr in [place]">neurologist told him "he probably had a stroke." Patient denies h/o seizures, or heart failure. Exercise / Class Metabolic Activity III < 4 Walking/Shop/Light housework (shortness of breath with usual activities ongoing x several yrs without change or worsening; denies chest discomfort) Past Family History Family History Mother Diabetes Past Surgical History Surgical History History of back surgery History of cardiac cath ~2012, x1 stent, following [place]>done in [place]; f/u [facility] Cardiology History of heart artery stent ~2012, x1 stent, [place]; f/u [facility] Cardiology History of total right hip arthroplasty History of total right knee replacement (TKR) Hx of colonoscopy Hx of fusion of cervical spine Hx of shoulder surgery mulitiple on lt shoulder Past Anesthesia History No Hx of Anesthesia Complications and No Family Hx of Anesthesia Complications History of PONV No Hx of PONV and No Hx of Motion Sickness Social History Smoking Status: Former smoker tobacco type: smokeless tobacco Do You Dip or Chew Tobacco: Yes (1 can/day; advised) Smoking End Date: quit age 20 Hx Alcohol Use: Yes Alcohol type: beer and hard liquor alcohol intake frequency: other Alcohol Intake Frequency Comment: 1/5 daily-advised, denies h/o DTs or seizures without alcohol Hx Substance Use: Yes (medical card) substance use type: marijuana Substance Use Type Other:: Patient states he has a medical marijuana card Last Used Substance: Hours (ago) Last Used Substance Other:: uses at least 3x daily-advised Review of Systems Patient denies chest pain, fever, chills, cough, wheezing, or palpitations. Physical Exam Vital Signs Vitals BP 131/83 P 82 TEMP 98.8 SP02 94% on RA RESP 17 Physical Pt resting comfortably in chair in NAD, speaking clearly and coherently, alert and oriented throughout visit TMD < 3 finger breadths Mallampati Score 3, small oral opening Dentition: several caps, denies chipped or loose teeth, crowns, implants or bridges Lungs: normal respiratory effort. Good air movement, clear throughout to auscultation, no adventitious breath sounds Cardiac: regular rate and rhythm, no murmurs noted Carotid arteries: negative bruit bilat, assessed at neutral position d/t cervical spine disease Lab Results Anesthesia Preop Results Results Anesthesia Widget: WBC 6.76 K/ul (4.8-10.8) 07/31/22 Hgb 12.5 g/dl (14.0-18.0) L 07/31/22 Hct 37.7 % (42.0-52.0) L 07/31/22 Plt 209 K/uL (130-400) 07/31/22 Na 141 mmol/L (136-145) 07/31/22 K 4.1 mmol/L (3.5-5.1) 07/31/22 Cl 110 mmol/L (98-107) H 07/31/22 CO2 24 mmol/L (21-32) 07/31/22 BUN 13 mg/dl (6-23) 07/31/22 Creat 0.88 mg/dl (0.6-1.4) 07/31/22 Glucose Level 119 mg/dl (70-99(Fasting)) H 07/31/22 PT 10.3 Seconds (9.0-12.0) 07/31/22 PTT 27.1 Seconds (21.0-31.0) 07/31/22 INR 0.9 (0.9-1.1) 07/31/22 Blood Type O Positive 07/31/22 Antibody Screen NEGATIVE 07/31/22 Testing Laboratory Results A1c 6.3% 05/09/22 Electrocardiogram Date: 10/31/21 Sinus bradycardia, rate 59 bpm Possible anterior infarct, age undetermined No significant change vs 04/12/2010 Echocardiogram Date: 10/31/21 EF 55-60% Normal LV wall motion Grade I diastolic dysfunction No significant valvular pathology Cervical Spine Date: 06/20/22 CT 1. No acute fractures within the cervical spine. 2. Extensive anterior and posterior fusion as described above. The hardware appears intact. 3. There is 3 mm of anterolisthesis of C7 on T1 which demonstrates severe disc space narrowing and severe facet degenerative changes. The central canal and neural foraminal narrowing at this level is better appreciated on the recent cervical spine MRI. MRI Interval worsening of C7-T1 spinal stenosis which is now moderate to severe, AP diameter 6.5 mm. Bilateral up to mild to moderate neuroforaminal stenosis. Other Testing Abdomen pelvis CT 01/27/22 1. No acute intra-abdominal or intrapelvic abnormality. 2. No bowel obstruction or bowel wall thickening. Normal appendix. 3. Colonic diverticulosis. 4. No acute fracture identified. 5. Postoperative and degenerative changes of the lumbar spine as above. 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 The possibility of overall lesion is considered much less likely CTA chest 10/31/21 No evidence of PE, aortic dissection, or aortic aneurysm No acute cardiopulmonary disease Three-vessel coronary calcific plaque, moderate plaque burden COVID-19 Risk Screen Screening Information COVID-19 Screen Date: 07/31/22 Exposure 21 Days Family/Household +COVID Last 21 Days: No Exposure 10 Days Any COVID Exposure Last 10 Days: No Symptoms Last 10 Days Experienced COVID Sx Last 10 Days: No + COVID 0-90 Days COVID + in Last 0-90 Days: No
[2022-10-07] MEDS ORDERED: LR 60ML/HR IV SCH (06:00)
[2022-10-07] MEDS ORDERED: LR 15ML/HR IV SCH (06:00)
[2022-10-07] MEDS ORDERED: ceFAZolin 2000MG 2,000 MG/15 ML SYR IV SCH (06:00)
[2022-10-07] MEDS ORDERED: DEXAMETHASONE SOD INJ 4 MG/ML VIAL ONE (06:38)
[2022-10-07] MEDS ORDERED: PROPOFOL IV EMULSION 10 MG/ML 20 ML VIAL IV ONE ×4 (06:38→06:46)
[2022-10-07] MEDS ORDERED: ROCURONIUM BROMIDE 10 MG/ML 5 ML VIAL IV ONE (06:38)
[2022-10-07] MEDS ORDERED: LIDOCAINE 2% 2 ML VIAL/AMP(20MG/ML) INFIL ONE (06:38)
[2022-10-07] MEDS ORDERED: ONDANSETRON INJ 2 MG/ML 2 ML VIAL ONE (06:38)
[2022-10-07] MEDS ORDERED: SUGAMMADEX SODIUM 200 MG/2 ML VIAL IV ONE (06:39)
[2022-10-07] MEDS ORDERED: MIDAZOLAM HCL 1 MG/ML 2ML VIAL ONE (06:39)
[2022-10-07] MEDS ORDERED: KETAMINE 50 MG/5 ML SYRINGE ONE (06:39)
[2022-10-07] MEDS ORDERED: fentaNYL citrate PF 100 MCG/2 ML VIAL ONE ×3 (06:39→17:15)
[2022-10-07] MEDS ORDERED: BUPIVACAINE/EPINEPHRINE 0.5% MPF 1:200,000 30 ML VIAL ONE (06:44)
[2022-10-07] MEDS ORDERED: BACITRACIN OINT 14 GM TUBE ONE (06:44)
[2022-10-07] MEDS ORDERED: VANCOMYCIN HCL 1000MG/20ML VIAL ONE ×2 (06:45→14:30)
[2022-10-07] MEDS ORDERED: THROMBIN 5000 UNITS KIT ONE (06:45)
[2022-10-07] MEDS ORDERED: GELATIN SPONGE SZ 100 ONE (06:45)
[2022-10-07] MEDS ORDERED: ePHEDrine sulfate 50 MG/ML AMP IV PRN (06:56)
[2022-10-07] MEDS ORDERED: fentaNYL citrate PF 100 MCG/2 ML VIAL IV PRN (06:56)
[2022-10-07] MEDS ORDERED: ONDANSETRON INJ 2 MG/ML 2 ML VIAL IV PRN ×2 (06:56→16:43)
[2022-10-07] MEDS ORDERED: ATROPINE SULFATE 0.1 MG/ML 10ML SYR IV PRN (06:56)
[2022-10-07] MEDS ORDERED: DexMEDEtomidine HCL IV 100 MCG/ML VIAL IV ONE (06:57)
[2022-10-07] MEDS ORDERED: PROPOFOL IV EMULSION 10 MG/ML 100 ML VIAL IV ONE ×3 (06:57→14:18)
[2022-10-07] MEDS ORDERED: REMIFENTANIL HCL 1 MG VIAL IV ONE ×3 (06:57→14:20)
[2022-10-07] MEDS ORDERED: LIDOCAINE 4% INH SOLN 4 ML BTL INH ONE (07:08)
[2022-10-07] MEDS ORDERED: LIDOCAINE 5% OINT 30 GM TUBE EXT ONE (07:28)
--- NOTE | 2022-10-07 07:28 | History & Physical Bridge Note ---
Date of Service October 07, 2022 History & Physical Bridge Note I have examined the patient, reviewed the History & Physical and in the interval since the performance of the History & Physical I have noted the following changes of clinical significance: no changes noted
[2022-10-07] MEDS ORDERED: BENZOCAINE/TETRACAIN/BUTAM 50 APPLN/5 GM CAN EXT ONE (07:38)
[2022-10-07] MEDS ORDERED: ceFAZolin 330 MG/ML 1 GM VIAL ONE (14:39)
[2022-10-07] MEDS ORDERED: HYDROmorphone INJ 2 MG/ML SYR/VIAL ONE (15:27)
--- NOTE | 2022-10-07 16:36 | Post Operative Brief Note ---
PG Immediate Post Op with CF Date of Surgery October 07, 2022 Pre & Post Diagnosis Operation Date: 10/07/22 07:30 Pre-Op Diagnosis: Cervical Spinal Stenosis due to adjacent Disease Post-Op Diagnosis: Cervical Spinal Stenosis due to adjacent Disease I identified the patient and participated in the time-out.: Yes Procedure Operation Date: 10/07/22 07:30 Actual Procedures p C7-T1 Posterior Decompression and C7-T1, T1-T2 Posterior Fusion and instrumentation. Post Segmental Instrumentation C5-C6, C6-C7, C7-T1, T1-T2, Removal of C6 and C7 Hardware. Spinal Cord Monitoring(Not Applicable) - Anibal Tracy MD Surgeon Anibal Tracy MD Clinical Data Management Director none Estimated Blood Loss 150 Findings Consistent with Post-Op Diagnosis Specimens Specimen Description: no specimen Drains Zepeda Catheter (inserted on 1st attempt without difficulty, return urine noted in tubing prior to inflating balloon)
[2022-10-07] MEDS ORDERED: ACETAMINOPHEN 1,000 MG/100 ML VIAL IV PRN (16:43)
[2022-10-07] MEDS ORDERED: dexAMETHasone 8 MG in SYRINGE 0 ML IV PRN (16:43)
[2022-10-07] MEDS ORDERED: NALOXONE HCL 0.4 MG/1 ML VIAL/CARP IV PRN (16:43)
[2022-10-07] MEDS ORDERED: METOCLOPRAMIDE HCL INJ 5 MG/ML 2 ML VIAL IV PRN (16:43)
[2022-10-07] MEDS ORDERED: FAMOTIDINE 20 MG TAB PO PRN (16:43)
[2022-10-07] MEDS ORDERED: SOD PHOSPHATE/SOD BIPHOSPHATE ENEMA 132 ML BTL PR PRN (16:43)
[2022-10-07] MEDS ORDERED: DO NOT ADMINISTER FLU VACCINE PRN (16:43)
[2022-10-07] MEDS ORDERED: ONDANSETRON 4 MG OD TAB PO PRN (16:43)
[2022-10-07] MEDS ORDERED: diphenhydrAMINE Capsule 25 MG CAP PO PRN (16:43)
[2022-10-07] MEDS ORDERED: ACETAMINOPHEN 500 MG TAB PO PRN (16:43)
[2022-10-07] MEDS ORDERED: LORazepam 0.5 MG TAB PO PRN (16:43)
[2022-10-07] MEDS ORDERED: RACEPINEPHRINE 2.25% NEBU SOLN 0.5 ML VIAL INH PRN (16:43)
[2022-10-07] MEDS ORDERED: bisacodyL 10 MG SUPP PR PRN (16:43)
[2022-10-07] MEDS ORDERED: ALUMINUM/MAGNESIUM SUSP 30 ML UDC PO PRN (16:43)
[2022-10-07] MEDS ORDERED: hydrOXYzine HCl 25 MG TAB PO PRN (16:43)
[2022-10-07] MEDS ORDERED: HYDROmorphone INJ 0.5 MG/0.5 ML SYR IV PRN (16:43)
[2022-10-07] MEDS ORDERED: PROMETHAZINE HCL 12.5 MG in SODIUM CHLORIDE 0.9% 50 ML IV PRN (16:43)
[2022-10-07] MEDS ORDERED: LORazepam 2 MG/1 ML VIAL IV PRN (16:43)
[2022-10-07] MEDS ORDERED: MAGNESIUM HYDROXIDE SUSP 30 ML UDC PO PRN (16:43)
[2022-10-07] MEDS ORDERED: DO NOT ADMINISTER PNEUMOCOCCAL VACCINE PRN (16:43)
--- NOTE | 2022-10-07 16:54 | Fluoroscopy Report ---
FL cervical 2-3V CLINICAL HISTORY: C7-T1 POSTERIOR DECOMPRESSION/ T1-T2 FUSION TECHNIQUE: 20 views were obtained with the C-arm in the OR with the above procedure. Total fluoroscop y time was 3 minutes 34 seconds. Radiation dose was 149 mGy. Comparison: Comparison is made to cervical spine CT 06/20/2022 FINDINGS/IMPRESSION: Intraoperative images were obtained of C7-T1 posterior decompression with T1-T2 fusion. Existing anterior and posterior fixation hardware is incidentally noted. Please correlate with intraoperative fluoroscopy and operative report. ACT 112: Negative or not required by law. Electronically signed by: Arturo Joe M.D. 10/07/2022 4:53 PM
--- NOTE | 2022-10-07 17:58 | Anesthesiology Progress Note ---
Date of Service October 07, 2022 Anesthesia Post Procedure Vital Signs Vital Signs: Temp Pulse Pulse Resp BP BP Pulse Ox 10/07/22 17:50 79 16 136/76 96 10/07/22 17:40 79 17 141/76 H 97 10/07/22 17:30 78 18 135/79 97 10/07/22 17:20 74 12 144/82 H 100 10/07/22 17:00 72 16 145/80 H 99 10/07/22 16:50 70 20 131/82 100 10/07/22 17:10 75 12 142/82 H 100 10/07/22 16:40 72 20 145/88 H 100 10/07/22 16:30 96.8 F L 73 12 133/80 97 10/07/22 07:13 60 16 97 10/07/22 06:17 98.1 F 62 20 166/96 H 96 O2 Del Method O2 Flow Rate 10/07/22 17:50 Nasal Cannula 2 10/07/22 17:40 Nasal Cannula 2 10/07/22 17:30 Nasal Cannula 2 10/07/22 17:20 Oxymask 2 10/07/22 17:00 Oxymask 3 10/07/22 16:50 Oxymask 3 10/07/22 17:10 Oxymask 2 10/07/22 16:40 Oxymask 6 10/07/22 16:30 Oxymask 6 10/07/22 07:13 Room Air 10/07/22 06:17 Room Air Pain Intensity Neck: Pain Intensity: 8 Transfer of Care Handoff Completed per policy Notes Mental Status: alert / awake / arousable and participated in evaluation Patient Amnestic to Procedure: Yes Nausea / Vomiting: adequately controlled Pain: adequately controlled Airway Patency, RR, SpO2: stable & adequate BP & HR: stable & adequate Hydration State: stable & adequate Anesthetic Complications: no major complications apparent and Pt Satisfied with anesthetic care
[2022-10-07] MEDS ORDERED: NON-FORMULARY MEDICATION (Medical Marijuana 1 EA) INH PRN (19:04)
[2022-10-07] MEDS ORDERED: SENNA 8.6 MG TAB PO PRN (19:04)
--- NOTE | 2022-10-07 19:13 | Consultation ---
Date of Consultation October 07, 2022 Assessment & Plan (1) Acute respiratory failure with hypoxia: post-operative Present on Admission?: No (2) Alcohol abuse: Present on Admission?: Yes (3) Cervical radiculopathy: Present on Admission?: Yes (4) Intercostal neuralgia: Present on Admission?: Yes (5) Opioid dependence: Present on Admission?: Yes (6) CAD (coronary atherosclerotic disease): Present on Admission?: Yes (7) HTN (hypertension): Present on Admission?: Yes (8) Depression: Present on Admission?: Yes Plan Mr. 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 #Acute hypoxic respiratory failure s/p surgery Low saturations post-op, on 3L -Wean O2 for goal >92% -Incentive spirometry ordered to prevent post-operative atelectasis -Has required intermittent noturnal O2 per chart review on prior admissions, patient reports questionable complaince #Chronic Alcohol Dependence Reported last drink ~2 weeks ago given anticipation of procedure No hx of seizure/DTs; evaluated post-operatively, no clear signs of withdrawal at time of eval (normotensive, normal rate) Hold home clonazepam to avoid co-administration of benzo with AWSS AWSS protcol with prn ativan PO Thiamine and Folate in am #Chronic multi-level stenosis c/b radiculopathy #Intercostal neuralgia #Chronic opioid dependence Home regimen: oxycodone-acetaminophen, topiramate, gabapentin (reports 1800mg BID) Medical Marijuana as well -Post surgical pain management per ortho spine -Will continue prescribed dose of gabapentin 900mg BID, can consider TID contingent on symptoms/recovery #Obstructive CAD s/p FRANCY RCA 2012, stable #HTN followed cards 07/2022 for pre-operative risk management, RCRI 0.9% -Plavix to be resumed upon clearance from Ortho-Spine (ASA allergy) -Continue Lisinopril 40mg, Coreg 25mg BID, Amlodipine 10mg #Prior provoked DVT/PE left peroneal vein #PVD -completed AC treatment 2020 -DVT ppx: SCD and JIA carriee #HLD -Rosuvastatin 20mg #Prediabetes -A1c 6.3% 04/2022 -Hgb A1C ordered for am -SSI for glycemic control #BPH -Continue Tamsulosin 0.4 mg #History of sleep apnea Remote sleep study ~2006, no follow up since; documented noncompliance with CPAP Encourage follow up as OP #GERD -Continue pantoprazole #Anxiety #Depression #Insomnia -Hold home clonazepam given active AWSS w/ prn ativan -Continue home duloxetine -Continue home trazodone Will continue to follow for further management of comorbid conditions Thank you Time spent evaluating patient, direct bedside care, chart review, placing orders, interpretation of diagnostic studies,, as well as other required patient management activities is 60 minutes. History of Present Illness Requesting Physician: Dr Tracy Reason for Consultation: Mr. 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 Patient tolerated procedure well without any acute post-operative complications. Patient endorses mild pain, but states overall he still feels groggy. He denies any acute concerns to include chest pain, SOB, abdominal pain, or other issues. Patient states that he last drank roughly 2 weeks ago in preparation for this procedure. He denies any history of withdrawal or seizures. Patient was able to recount his medications and endorses compliance. Vital signs at bedside were stable, with bp in 130s, HR in 80s. Patient on 3L O2, but saturating in high 90s. Hospitalist consult to follow for co-management Attending Physician: Anibal Tracy MD Allergies Allergy/AdvReac Type Severity Reaction Status Date / Time aspirin AdvReac Mild UPSET Verified 10/07/22 06:07 STOMACH Home Medications Medication Instructions Recorded Confirmed Type clopidogrel 75 mg tablet (Plavix) 75 mg PO QAM 10/28/17 10/07/22 History lisinopril 40 mg tablet 40 mg PO QAM 10/28/17 10/07/22 History sennosides 8.6 mg tablet (senna) 8.6 mg PO BID PRN Constipation 10/28/17 10/07/22 History tamsulosin 0.4 mg capsule (Flomax) 0.4 mg PO QAM 05/04/18 10/07/22 History clonazepam 1 mg tablet (Klonopin) 1 mg PO TID 11/08/18 10/07/22 History duloxetine 60 mg capsule,delayed 60 mg PO QAM 06/21/19 10/07/22 History release (Cymbalta) trazodone 150 mg tablet 75 mg PO HS 06/21/19 10/07/22 History rosuvastatin 20 mg tablet (Crestor) 20 mg PO HS 12/01/19 10/07/22 History amlodipine 10 mg tablet 10 mg PO QAM 01/27/22 10/07/22 History carvedilol 25 mg tablet 25 mg PO BID 01/27/22 10/07/22 History gabapentin 600 mg tablet 900 mg PO BID 01/27/22 10/07/22 History pantoprazole 40 mg tablet,delayed 40 mg PO QAM 01/27/22 10/07/22 History release topiramate 25 mg tablet 25 mg PO BID 01/27/22 10/07/22 History medical marijuana 1 dose inhalation UD PRN pain, 04/02/22 10/07/22 History anxiety cyclobenzaprine 10 mg tablet 10 mg PO HS 05/21/22 10/07/22 History milk thistle 1 cap PO BID 07/21/22 10/07/22 History ergocalciferol (vitamin D2) 1,250 1,250 mcg PO .COMPLEX #10 caps 09/22/22 10/07/22 Rx mcg (50,000 unit) capsule oxycodone-acetaminophen 5 mg-325 1 tab PO TID PRN pain #90 tabs 10/01/22 10/07/22 Rx mg tablet (Percocet) Patient History Medical History (Updated 10/07/22 @ 20:53 by Lakia Roy MD) Alcohol abuse BPH (benign prostatic hyperplasia) CAD (coronary artery disease) s/p FRANCY to RCA 2012, follows with [facility] cardiology Cervical disc disorder Cervical post-laminectomy syndrome Cervical radiculopathy Chronic hip pain after total replacement of right hip joint Deep vein thrombosis 2020, following fall from ladder Depression Dyslipidemia Dystonic movements Esophageal dysmotility GERD (gastroesophageal reflux disease) History of GI bleed History of pulmonary embolism HTN (hypertension) controlled, stable per pt Lumbar postlaminectomy syndrome Myocardial Infarction 2012, s/p FRANCY to RCA Opioid dependence Painful total knee replacement (08/22/13) Prediabetes Pulmonary embolism 2020 "came from my legs, a clot broke loose">currently on plavix Rib fracture 2020; "fell of ladder 14 ft up; not sure if they are still fractured, but still has a lot of rib pain" Right-sided chest pain Sleep apnea no device Stroke ~between ages of [age], went to family Dr because he couldn't see or hear "very well,"; BP was really high>"when he was feeling better, they had him go to see a Dr in [place]">neurologist told him "he probably had a stroke." Surgical History History of back surgery History of cardiac cath ~2012, x1 stent, following CA>done in [place]; f/u [facility] History of heart artery stent ~2012, x1 stent, [place]; f/u [facility] History of total right hip arthroplasty History of total right knee replacement (TKR) Hx of colonoscopy Hx of fusion of cervical spine Hx of shoulder surgery mulitiple on lt shoulder Family History Mother Diabetes Social History Smoking Status: Never smoker Smoking End Date: quit age 20; Second Hand Exposure: No; Do You Dip or Chew Tobacco: Yes; Tobacco Cessation Education Requested by Patient: No Hx Alcohol Use: Yes Alcohol type: beer Hx Substance Use: Yes (medical card) Prescribed Medications: Marijuana Last Used Substance: Just Prior to Arrival Last Used Substance Other:: uses at least 3x daily-advised Substance Use Type Other:: Patient states he has a medical marijuana card Preferred Language: Cymro Communication Ability: Effective Visual Impairment: No Limitations Hearing Ability: Normal Movement Therapist Required: No Beliefs That Will Affect Care: None marital status: Single Current Living Situation: Family Current Living Situation Comment: Lives with brother current occupational status: retired Other Information That Helps Us Care for You: No Feels Safe at Home: Yes Safety Concerns: Feels Safe At This Time Assistive Devices: None Review of Systems Review of Systems: Constitutional: (-) fever/chills, (-) recent loss of weight, (-) appetite changes, (-) night sweats. Head: (-) headache, (-) dizziness. Eye: (-) blurring of vision, (-) double vision, (-) redness. Ear: (-) hearing loss, (-) discharge, (-) vertigo Nose: (-) discharge, (-) bleeding, (-) congestion, (-) post nasal drip. Throat: (-) sore throat, (-) hoarseness of voice, (-) odynophagia. Cardiovascular: (-) chest pain, (-) palpitations, (-) syncope, (-) orthopnea, (- ) PND, (+) occasional leg swelling. Respiratory: (-) shortness of breath, (-) cough, (-) wheezing, (-) hemoptysis. Neuro: (-) weakness in extremities, (+) numbness, (+) tingling, (-) tremor. Gastrointestinal: (-) belly pain, (-) belly distension, (-) nausea, (-) vomiting, (-) diarrhea, (-) constipation,= (-) hematemesis, (-) hematochezia, (- ) bowel incontinence Genitourinary: (-) hematuria, (-) dysuria, (-) polyuria, (-) hesitancy, (-) frequency, (-) urinary incontinence. Musculoskeletal: (-) myalgia, (+) arthralgia. Skin: (-) rashes. Endocrine: (-) heat/cold intolerance. Psychiatry: (+) depression, (-) hallucination. Physical Exam Physical Exam: GENERAL APPEARANCE: AxOx4, appears lethargic, notably s/p procedure, but engaged and pleasant HEENT: NC, AT. MMM. EOMI, clear conjunctiva, oropharynx clear. NECK: Supple without lymphadenopathy, ROM not assessed secondary to surgical intervention HEART: Normal rate and regular rhythm, normal S1/S1, no m/r/g LUNGS: CTAB, moving air well, slightly decreased bibasilar lung sounds ABDOMEN: Soft, nontender, nondistended with good bowel sounds heard. BACK: no assessed 2/2 procedure EXTREMITIES: Without cyanosis, clubbing or edema. SCDS jia stockings in place NEUROLOGICAL: Grossly nonfocal. Alert and oriented, moving all 4 extremities. CN not formally tested but appear grossly intact. Results & Data Vital Signs (Past 12 Hours) Vital Signs Temp Pulse Pulse Resp BP Pulse Ox O2 Del Method 10/07/22 16:44 36.6 C 83 18 147/88 H 98 Nasal Cannula 10/07/22 18:15 36.6 C 84 12 139/77 97 Nasal Cannula 10/07/22 18:00 82 12 142/78 H 97 Nasal Cannula 10/07/22 17:50 79 16 136/76 96 Nasal Cannula 10/07/22 17:40 79 17 141/76 H 97 Nasal Cannula 10/07/22 17:30 78 18 135/79 97 Nasal Cannula 10/07/22 17:20 74 12 144/82 H 100 Oxymask 10/07/22 17:00 72 16 145/80 H 99 Oxymask 10/07/22 16:50 70 20 131/82 100 Oxymask 10/07/22 17:10 75 12 142/82 H 100 Oxymask 10/07/22 16:40 72 20 145/88 H 100 Oxymask 10/07/22 16:30 36.0 C L 73 12 133/80 97 Oxymask 10/07/22 07:13 60 16 97 Room Air O2 Flow Rate 10/07/22 16:44 2 10/07/22 18:15 2 10/07/22 18:00 2 10/07/22 17:50 2 10/07/22 17:40 2 10/07/22 17:30 2 10/07/22 17:20 2 10/07/22 17:00 3 10/07/22 16:50 3 10/07/22 17:10 2 10/07/22 16:40 6 10/07/22 16:30 6 10/07/22 07:13 Laboratory Results Laboratory Results POC Glucose 144 mg/dl (70-99) H 10/07/22 06:09 Impressions Cervical Spine X-Ray 10/07/22 07:30 FL cervical 2-3V CLINICAL HISTORY: C7-T1 POSTERIOR DECOMPRESSION/ T1-T2 FUSION TECHNIQUE: 20 views were obtained with the C-arm in the OR with the above procedure. Total fluoroscopy time was 3 minutes 34 seconds. Radiation dose was 149 mGy. Comparison: Comparison is made to cervical spine CT 06/20/2022 FINDINGS/IMPRESSION: Intraoperative images were obtained of C7-T1 posterior decompression with T1-T2 fusion. Existing anterior and posterior fixation hardware is incidentally noted. Please correlate with intraoperative fluoroscopy and operative report. ACT 112: Negative or not required by law. Electronically signed by: Arturo Joe M.D. 10/07/2022 4:53 PM I personally reviewed labs from 08/2022 which revealed stable renal function and chronic normocytic anemia. Diagnostic Findings I personally reviewed prior imaging in EPIC: LE Duplex : no acute DVT Medications Administered Carvedilol (Carvedilol 25 Mg Tab) 25 mg PO BID MARIO Stop: 11/06/22 20:59 Last Admin: 10/07/22 20:02 Dose: 25 mg Documented By: MAC Clonazepam (Clonazepam 1 Mg Tab) 1 mg PO TID MARIO Stop: 11/06/22 20:59 Last Admin: 10/07/22 20:10 Dose: 1 mg Documented By: MAC Cyclobenzaprine HCl (Cyclobenzaprine Hcl 10 Mg Tab) 10 mg PO Q8 MARIO Stop: 11/06/22 21:59 Last Admin: 10/07/22 20:07 Dose: 10 mg Documented By: MAC Gabapentin (Gabapentin 300 Mg Cap) 900 mg PO BID MARIO Stop: 11/06/22 20:59 Last Admin: 10/07/22 20:04 Dose: 900 mg Documented By: MAC Hydromorphone HCl (Hydromorphone Inj 0.5 Mg/0.5 Ml Syr) 0.5 mg IV Q3H PRN PRN Reason: MODERATE Pain (Scale 4,5,6) & Pre PT Stop: 10/21/22 16:42 Last Admin: 10/07/22 20:10 Dose: 0.5 mg Documented By: MAC Lactated Ringer's (Lr) 1,000 mls @ 75 mls/hr IV .[id number] MARIO Stop: 11/06/22 18:59 Last Admin: 10/07/22 19:56 Dose: 75 mls/hr Documented By: MAC Cefazolin Sodium (Ancef 1000mg) 1,000 mg in 7.5 mls @ 2.5 mls/min IV Q8H MARIO; Protocol Stop: 10/08/22 03:02 Last Admin: 10/07/22 19:56 Dose: 2.5 mls/min Documented By: ANA Senna/Docusate Sodium (Docusate Sodium/Senna 50/8.6mg Tab) 2 tab PO HS [facility] Stop: 11/06/22 20:59 Last Admin: 10/07/22 20:07 Dose: 2 tab Documented By: ANA Topiramate (Topiramate 25 Mg Tab) 25 mg PO BID MARIO Stop: 11/06/22 20:59 Last Admin: 10/07/22 20:03 Dose: 25 mg Documented By: MAC Trazodone HCl (Trazodone Hcl 50 Mg Tab) 75 mg PO HS [facility] Stop: 11/06/22 20:59 Last Admin: 10/07/22 20:05 Dose: 75 mg Documented By: ANA ECG Additional Comments: I personally reviewed most recent ECG from 08/2022, NSR with QTc 425 (5) Opioid dependence Complication of substance-induced condition: uncomplicated (7) HTN (hypertension) Hypertension type: primary hypertension Qualified Code(s): I10 - Essential (primary) hypertension
[2022-10-07] MEDS ORDERED: LORazepam 1 MG TAB PO PRN ×3 (19:42)
[2022-10-07] MEDS ORDERED: Ativan PO Alcohol Withdrawal--Active Protocol PO PRN (19:42)
[2022-10-07] MEDS: ceFAZolin 1000MG 1,000 MG/7.5 ML SYR IV SCH (19:56)
[2022-10-07] MEDS: LACTATED RINGER'S 1,000 ML IV SCH (19:56)
[2022-10-07] MEDS: carvediloL 25 MG TAB PO SCH (20:02)
[2022-10-07] MEDS: TOPIRAMATE 25 MG TAB PO SCH (20:03)
[2022-10-07] MEDS: GABAPENTIN 300 MG CAP PO SCH (20:04)
[2022-10-07] MEDS: traZODone HCL 50 MG TAB PO SCH (20:05)
[2022-10-07] MEDS: DOCUSATE SODIUM/SENNA 50/8.6MG TAB PO SCH (20:07)
[2022-10-07] MEDS: CYCLOBENZAPRINE HCL 10 MG TAB PO SCH (20:07)
[2022-10-07] MEDS ORDERED: DEXTROSE 50% 50 ML SYRINGE IV PRN (20:37)
[2022-10-07] MEDS ORDERED: GLUCAGON FOR INJ 1 MG VIAL SQ PRN (20:37)
[2022-10-07] MEDS ORDERED: GLUCOSE 40% GEL 15 GM TUBE PO PRN (20:37)
[2022-10-07] MEDS ORDERED: GLUCOSE 10 TAB/TUBE PO PRN (20:37)
[2022-10-07] MEDS ORDERED: CARBOHYDRATES FOR HYPOGLYCEMIA PO PRN (20:37)
[2022-10-07] MEDS ORDERED: clonazePAM 1 MG TAB PO SCH (21:00)
[2022-10-07] MEDS: INSULIN ASPART PER UNIT CHARGE SC SCH (21:43)
[2022-10-07] MEDS: oxyCODONE/ACETAMINOPHEN 5mg/325mg TAB PO PRN (21:48)
[2022-10-07] MEDS: HYDROmorphone INJ 0.5 MG/0.5 ML SYR IV PRN (23:19)
[2022-10-07] MEDS ORDERED: HYDROmorphone INJ 0.5 MG/0.5 ML SYR IV STA (23:57)
[2022-10-07] MEDS ORDERED: ALUMINUM/MAGNESIUM/SIMETH (MAALOX MAX) 30 ML UDC PO STA (23:57)
[2022-10-08] MEDS: ceFAZolin 1000MG 1,000 MG/7.5 ML SYR IV SCH (04:04)
[2022-10-08] MEDS: CYCLOBENZAPRINE HCL 10 MG TAB PO SCH ×3 (05:37→21:12)
[2022-10-08] MEDS: POLYETHYLENE (MIRALAX) 17 GM PACK PO SCH ×3 (05:37→17:42)
[2022-10-08 06:44] LABS: Calcium 8.1 mg/dl (8.6-10.3)
[2022-10-08 06:49] LABS: BUN Creatinine Ratio 13.3 (10-20); Creatinine Clr Calc Pharmacy 98.5 ml/min; Est GFR (African American) 106.3 ml/min; Est GFR (Non-African American) 91.7 ml/min
[2022-10-08 07:03] LABS: Basophils # (auto) 0.02 K/uL (0-0.2); Basophils % (auto) 0.2 %; Echinocytes 1+; Hemoglobin 11.5 g/dl (14.0-18.0); Immature Granulocytes # (auto) 0.06 K/uL (0.01-0.20); Immature Granulocytes % (auto) 0.5 %; Lymphocytes # (auto) 0.89 K/uL (1.2-3.4); Lymphocytes % (auto) 7.7 %; Mean Corpuscular Hgb Conc 32.9 g/dL (32.0-36.0); Mean Corpuscular Volume 85.4 fL (80.0-100.0); Mean Platelet Volume 10.5 fL (9.4-12.4); Monocytes # (auto) 0.92 K/uL (0.11-0.59); Neutrophils # (auto) 9.67 K/uL (1.40-6.50); Neutrophils % (auto) 83.6 %; Ovalocytes 1+; Platelet Count 163 K/uL (130-400); Polychromasia 1+; RDW Coefficient of Variation 13.3 % (11.5-14.5); RDW Standard Deviation 41.7 fL (36.4-46.3); White Blood Count 11.56 K/ul (4.8-10.8)
[2022-10-08] MEDS: HYDROmorphone INJ 0.5 MG/0.5 ML SYR IV PRN ×4 (08:22→21:17)
[2022-10-08] MEDS: amLODIPine BESYLATE 5 MG TAB PO SCH (08:23)
[2022-10-08] MEDS: lisinopril 40 MG TAB PO SCH (08:23)
[2022-10-08] MEDS: THIAMINE HCL 100 MG TAB PO SCH (08:23)
[2022-10-08] MEDS: GABAPENTIN 300 MG CAP PO SCH ×2 (08:23→21:11)
[2022-10-08] MEDS: carvediloL 25 MG TAB PO SCH ×2 (08:23→21:13)
[2022-10-08] MEDS: TOPIRAMATE 25 MG TAB PO SCH ×2 (08:23→21:11)
[2022-10-08] MEDS: FOLIC ACID 1 MG TAB PO SCH (08:23)
[2022-10-08] MEDS: TAMSULOSIN HCL 0.4 MG CAP PO SCH (08:23)
[2022-10-08] MEDS: DULoxetine HCL 60 MG CAP PO SCH (08:24)
[2022-10-08] MEDS: INSULIN ASPART PER UNIT CHARGE SC SCH ×4 (08:27→21:14)
[2022-10-08 08:58] LABS: Estimated Average Glucose 143 mg/dl; Hemoglobin A1C 6.6 % (4.5-5.6)
[2022-10-08] MEDS: LACTATED RINGER'S 1,000 ML IV SCH ×2 (09:43→23:05)
--- NOTE | 2022-10-08 10:40 | Operative Report ---
PG Post Operative Report Pre & Post Diagnosis Operation Date: 10/07/22 07:30 Pre-Op Diagnosis: Cervical Spinal Stenosis due to adjacent Disease Post-Op Diagnosis: Cervical Spinal Stenosis due to adjacent Disease I identified the patient and participated in the time-out.: Yes Procedure Operation Date: 10/07/22 07:30 Actual Procedures p C7-T1 Posterior Decompression and C7-T1, T1-T2 Posterior Fusion and instrumentation. Post Segmental Instrumentation C5-C6, C6-C7, C7-T1, T1-T2, Removal of C6 and C7 Hardware. Spinal Cord Monitoring(Not Applicable) - Anibal Tracy MD Surgeon Anibal Tracy MD Vest Presser none Estimated Blood Loss 150 Findings Consistent with Post-Op Diagnosis Specimens none Description of Procedure Patient was taken the operating room and after adequate anesthesia was carefully positioned supine on the OSI flat top table. At that time I did positioning of the patient, fluoroscopy was brought in, and numerous radiographs were taken in the lateral view with a metallic marker indicating the region that would be utilized for any approach to the lower cervical spine. In each view I could not visualize a sufficient approach to the C7-T1 level from that location that would not require significant surgery to gain access and/or potentially a corpectomy at the C7 level. For this reason as discussed with the patient prior to the surgery, I elected not to perform the anterior part and complete the stabilization and decompression posteriorly. Patient was then repositioned prone on the OSI [place] top table and secured in position, Rangel-Wells tongs were applied for the procedure with approximately 30 pounds of weight for additional traction. After careful positioning and checking all areas for the positioning, fluoroscopy was brought in, I marked the area of the prior incision, where approximate location of the hardware was and an area to access down to T2. After preprep followed by prepping and draping, I then moved ahead with beginning the procedure with the midline incision taken down through the prior incisional area posteriorly but then staying more midline than the previous incision which had been marked using fluoroscopy. I advanced down to the spinous processes in the upper thoracic region and then moved cephalad as there were some remaining posterior spinous process left at C5-C6 and C7. From their ankle amount and located the hardware and exposed to the cross-link from the prior construct. I then went on to expose all the areas to be addressed including the T1N T2 spinous processes and lamina, and the hardware as noted the lamina regions. Fluoroscopy was then used to locate the start point for the pedicle screws to be placed at T1, a bur was made to make the start point followed by insertion of gearshift probe. I then inspected the gearshift probe tract that was made and found it to be within the pedicle, followed by then measuring, tap and insertion of 4.5 millimeter screws from the [employer] Viewpoint set. Then this was accomplished in a similar fashion at T2, it is to note that monitoring was utilized during this procedure and no changes were noted. I then moved to the prior construct which was Clear[employer]ideeer, I then cut the birgit between the C5 and C6 on both sides, the birgit was removed along with the setscrews. I then went to remove and revise the lateral mass screws but they had firm fixation, so I utilized this fixation as diameter birgit was the same and then contoured a birgit extending from T2 to the C6 and C7 lateral mass screws. The rods were contoured and tightened in a manner to provide some limited reduction of the spondylolisthesis and slight distraction. After this was completed, I then went ahead with the decompression at C7-T1 posteriorly with hemilaminectomies and decompression at that the interspace removal ligamentum flavum and partial medial facetectomies. This was completed without issue, thrombin-soaked Gelfoam was then placed over this region. I then decorticated for the fusion this included the C7-T1 facet interspace which was preserved as much as possible for the fusion, the lateral mass structures in the lamina of T1 and T2. Fusion materials were then inserted this included a combination of infuse and I will see him and [employer] collagen matrix and limited bone graft from the decompression and decortication. All setscrews were torqued down properly previously, at this point the operative site was closed after placing vancomycin powder and some local anesthetic. This included 2 layers of 0 Vicryl sutures and additional layer of 2-0 Vicryl sutures and then anson for the skin. Sterile dressing was applied, the patient tolerated procedure well was taken recovery room stable condition. I attest to the content of the Intraoperative Record and any orders documented therein. Any exceptions are noted below.
--- NOTE | 2022-10-08 14:25 | Hospitalist Progress Note ---
Date of Service October 08, 2022 Assessment & Plan (1) Acute respiratory failure with hypoxia: Plan: post-operative (2) Alcohol abuse: (3) Cervical radiculopathy: (4) Intercostal neuralgia: (5) Opioid dependence: (6) CAD (coronary atherosclerotic disease): (7) HTN (hypertension): (8) Depression: Plan Mr. 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 #Acute hypoxic respiratory failure s/p surgery Low saturations post-op, on 3L -Wean O2 for goal >92% -Incentive spirometry ordered to prevent post-operative atelectasis -He has been doing much better this morning and has been saturating normally on room air -Does not have any shortness of breath at rest -Minimal crackles at the bases otherwise unremarkable examination #Chronic Alcohol Dependence Reported last drink ~2 weeks ago given anticipation of procedure No hx of seizure/DTs; evaluated post-operatively, no clear signs of withdrawal at time of eval (normotensive, normal rate) Hold home clonazepam to avoid co-administration of benzo with AWSS AWSS protcol with prn ativan PO Thiamine and Folate in am No signs and or symptoms of alcohol withdrawal #Chronic multi-level stenosis c/b radiculopathy #Intercostal neuralgia #Chronic opioid dependence Home regimen: oxycodone-acetaminophen, topiramate, gabapentin (reports 1800mg BID) Medical Marijuana as well -Post surgical pain management per ortho spine -Will continue prescribed dose of gabapentin 900mg BID, can consider TID contingent on symptoms/recovery -Denies any significant pain at rest #Obstructive CAD s/p FRANCY RCA 2012, stable #HTN followed cards 07/2022 for pre-operative risk management, RCRI 0.9% -Plavix to be resumed upon clearance from Ortho-Spine (ASA allergy) -Continue Lisinopril 40mg, Coreg 25mg BID, Amlodipine 10mg -No cardiac symptoms and blood pressure remains stable #Prior provoked DVT/PE left peroneal vein #PVD -completed AC treatment 2020 -DVT ppx: SCD and JIA brush #HLD -Rosuvastatin 20mg #Prediabetes -A1c 6.3% 04/2022 -Hgb A1C ordered for am -SSI for glycemic control #BPH -Continue Tamsulosin 0.4 mg #History of sleep apnea Remote sleep study ~2006, no follow up since; documented noncompliance with CPAP Encourage follow up as OP #GERD -Continue pantoprazole #Anxiety #Depression #Insomnia -Hold home clonazepam given active AWSS w/ prn ativan -Continue home duloxetine -Continue home trazodone Medically stable and can be transferred to orthopedic floor Admission and Anticipated Discharge Date Admission Date: October 07, 2022 Subjective 10/08/2022 The patient was seen and examined in medical telemetry unit He is a status post C7-T1 posterior decompression and fusion Has been doing fine following the procedure Denies any significant symptoms and no numbness and or tingling involving any of the extremities Review of Systems Review of Systems: All systems reviewed and are unremarkable except as noted below Physical Exam Physical Exam: Lying in bed comfortably Constitutional: well developed, well nourished, + ill appearing and + obese Eyes: PERRL, conjunctivae normal, anicteric sclerae ENMT: external ear and nose normal, oropharynx normal Neck: trachea midline, no thyromegaly Respiratory: no respiratory distress Auscultation: + diminished lung sounds and + crackles (Occasional crackles at the bases) Cardiovascular: Rate/Rhythm: regular rate and regular rhythm Heart Sounds: normal S1 and normal S2; no murmur Extremities: + edema (Trace edema bilaterally) Gastrointestinal (Abdomen): Inspection/Auscultation: + abdomen distended and normal bowel sounds Percussion/Palpation: abdomen soft; abdomen nontender Musculoskeletal: Has neck pain. No acute arthritis involving any of the joint Neurologic: normal touch/pain/proprioception and moves all extremities; no focal motor deficits Lymphatic: no cervical or axillary lymphadenopathy Results & Data Results & Data Vital Signs (Past 12 Hours) Vital Signs Temp Pulse Resp BP Pulse Ox O2 Del Method O2 Flow Rate 10/08/22 11:48 36.7 C 71 19 129/74 95 Room Air 10/08/22 11:29 73 16 93 Room Air 10/08/22 10:26 Room Air 10/08/22 09:53 97 Room Air 10/08/22 07:52 36.3 C L 77 18 151/83 H 98 Nasal Cannula 2 10/08/22 07:51 81 16 98 Nasal Cannula 2 10/08/22 04:41 36.4 C L 79 18 138/74 97 Nasal Cannula 2 10/08/22 02:25 77 16 96 Nasal Cannula 3 Laboratory Results Short CBC 10/08/22 Range/Units 05:39 WBC 11.56 H (4.8-10.8) K/ul Hgb 11.5 L (14.0-18.0) g/dl Hct 35.0 L (42.0-52.0) % Plt Count 163 (130-400) K/uL BMP 10/08/22 05:39 Sodium 139 Potassium 4.0 Chloride 110 H Carbon Dioxide 23 BUN 11 Creatinine 0.83 Glucose 149 H Calcium 8.1 L Medications Administered Current Inpatient Medications Acetaminophen (Acetaminophen 500 Mg Tab) 1,000 mg PO Q8H PRN PRN Reason: MILD Pain Scale 1,2,3 & Pre PT Stop: 11/06/22 16:42 Al Hydrox/Mg Hydrox/Simethicone (Aluminum/Magnesium Susp 30 Ml Udc) 30 ml PO Q6H PRN PRN Reason: Dyspepsia Stop: 11/06/22 16:42 Last Admin: 10/08/22 00:18 Dose: 30 ml Amlodipine Besylate (Amlodipine Besylate 5 Mg Tab) 10 mg PO QAM [facility] Stop: 11/07/22 08:59 Last Admin: 10/08/22 08:23 Dose: 10 mg Bisacodyl (Bisacodyl 10 Mg Supp) 10 mg WI DAILY PRN PRN Reason: Constipation Stop: 11/06/22 16:42 Carvedilol (Carvedilol 25 Mg Tab) 25 mg PO BID [facility] Stop: 11/06/22 20:59 Last Admin: 10/08/22 08:23 Dose: 25 mg Clonazepam (Clonazepam 1 Mg Tab) 1 mg PO TID [facility] Stop: 11/06/22 20:59 Last Admin: 10/07/22 20:10 Dose: 1 mg Cyclobenzaprine HCl (Cyclobenzaprine Hcl 10 Mg Tab) 10 mg PO Q8 [facility] Stop: 11/06/22 21:59 Last Admin: 10/08/22 13:18 Dose: 10 mg Dextrose (Dextrose 50% 50 Ml Syringe) 25 - 50 ml IV UD PRN; Protocol PRN Reason: Hypoglycemia Protocol Stop: 11/06/22 20:36 Diphenhydramine HCl (Diphenhydramine Capsule 25 Mg Cap) 25 mg PO Q6H PRN PRN Reason: Allergic Rhinitis/Insomnia Stop: 11/06/22 16:42 Duloxetine HCl (Duloxetine Hcl 60 Mg Cap) 60 mg PO QAM [facility] Stop: 11/07/22 08:59 Last Admin: 10/08/22 08:24 Dose: 60 mg Epinephrine (Racepinephrine 2.25% Nebu Soln 0.5 Ml Vial) 0.5 ml INH NOW PRN PRN Reason: If stridor present Famotidine (Famotidine 20 Mg Tab) 20 mg PO Q12H PRN PRN Reason: Dyspepsia Stop: 11/06/22 16:42 Folic Acid (Folic Acid 1 Mg Tab) 1 mg PO QAM [facility] Stop: 11/07/22 08:59 Last Admin: 10/08/22 08:23 Dose: 1 mg Gabapentin (Gabapentin 300 Mg Cap) 900 mg PO BID [facility] Stop: 11/06/22 20:59 Last Admin: 10/08/22 08:23 Dose: 900 mg Glucagon (Glucagon For Inj 1 Mg Vial) 1 mg SQ UD PRN; Protocol PRN Reason: Hypoglycemia Protocol Stop: 11/06/22 20:36 Glucose (Glucose 10 Tab/Tube) 4 - 8 tab PO UD PRN; Protocol PRN Reason: Hypoglycemia Treatment Stop: 11/06/22 20:36 Glucose (Glucose 40% Gel 15 Gm Tube) 15 - 30 gm PO UD PRN; Protocol PRN Reason: Hypoglycemia Protocol Stop: 11/06/22 20:36 Hydromorphone HCl (Hydromorphone Inj 0.5 Mg/0.5 Ml Syr) 0.5 mg IV Q3H PRN PRN Reason: MODERATE Pain (Scale 4,5,6) & Pre PT Stop: 10/21/22 16:42 Last Admin: 10/07/22 20:10 Dose: 0.5 mg Hydromorphone HCl (Hydromorphone Inj 0.5 Mg/0.5 Ml Syr) 1 mg IV Q3H PRN PRN Reason: SEVERE pain (7,8,9,10) Stop: 10/21/22 17:10 Last Admin: 10/08/22 13:18 Dose: 1 mg Hydroxyzine HCl (Hydroxyzine Hcl 25 Mg Tab) 25 mg PO Q8H PRN PRN Reason: Anxiety Stop: 11/06/22 16:42 Dexamethasone 8 mg/ Syringe 2 mls @ 1 mls/min IV NOW PRN PRN Reason: If stridor present Lactated Ringer's (Lr) 1,000 mls @ 75 mls/hr IV .[id number] [facility] Stop: 11/06/22 18:59 Last Admin: 10/08/22 09:43 Dose: 75 mls/hr Promethazine HCl 12.5 mg/ (Sodium Chloride) 50.5 mls @ 202 mls/hr IV Q6H PRN PRN Reason: Nausea &/or Vomiting Stop: 11/06/22 16:42 Acetaminophen (Ofirmev) 1,000 mg in 100 mls @ 400 mls/hr IV Q8H PRN PRN Reason: Pain Rating 1-3 & Pre PT Stop: 10/08/22 16:44 Influenza Virus Vaccine Quadrival (Do Not Administer Flu Vaccine) 1 each N/A PRN PRN PRN Reason: Notification Stop: 11/06/22 16:42 Insulin Aspart (Insulin Aspart Per Unit Charge) 0 units SC ACHS [facility] Stop: 11/06/22 20:59 Last Admin: 10/08/22 12:33 Dose: 5 units Lisinopril (Lisinopril 40 Mg Tab) 40 mg PO QAM [facility] Stop: 11/07/22 08:59 Last Admin: 10/08/22 08:23 Dose: 40 mg Lorazepam (Lorazepam 0.5 Mg Tab) 0.5 mg PO Q8H PRN PRN Reason: Sedation/Anxiety Stop: 11/06/22 16:42 Lorazepam (Lorazepam 2 Mg/1 Ml Vial) 0.5 mg IV Q8H PRN PRN Reason: Sedation/Anxiety Stop: 11/06/22 16:42 Lorazepam (Lorazepam 1 Mg Tab) 2 mg PO UD PRN; Protocol PRN Reason: EtOH Withdrawal AWSS Score 8,9 Stop: 11/06/22 19:41 Lorazepam (Lorazepam 1 Mg Tab) 3 mg PO ONCE PRN; Protocol PRN Reason: EtOH Withdrawal AWSS Score 10 & above Lorazepam (Lorazepam 1 Mg Tab) 1 mg PO UD PRN; Protocol PRN Reason: EtOH Withdrawal AWSS Score 6,7 Stop: 11/06/22 19:41 Magnesium Hydroxide (Magnesium Hydroxide Susp 30 Ml Udc) 30 ml PO Q24H PRN PRN Reason: Constipation Stop: 11/06/22 16:42 Metoclopramide HCl (Metoclopramide Hcl Inj 5 Mg/Ml 2 Ml Vial) 10 mg IV Q6H PRN PRN Reason: Nausea &/or Vomiting Stop: 11/06/22 16:42 Miscellaneous (Carbohydrates For Hypoglycemia ) 15 - 30 gm PO UD PRN PRN Reason: Hypoglycemia Protocol Stop: 11/06/22 20:36 Naloxone HCl (Naloxone Hcl 0.4 Mg/1 Ml Vial/Carp) 0.1 mg IV Q5M PRN PRN Reason: Oversedation/Resp depression Stop: 11/06/22 16:42 Ondansetron HCl (Ondansetron Inj 2 Mg/Ml 2 Ml Vial) 4 mg IV Q6H PRN PRN Reason: Nausea &/or Vomiting Stop: 11/06/22 16:42 Ondansetron HCl (Ondansetron 4 Mg Od Tab) 4 mg PO Q6H PRN PRN Reason: Nausea Stop: 11/06/22 16:42 Oxycodone/Acetaminophen (Oxycodone/Acetaminophen 5mg/325mg Tab) 1 - 2 tab PO Q4H PRN PRN Reason: Pain & Pre PT Stop: 10/21/22 16:42 Last Admin: 10/07/22 21:48 Dose: 2 tab Pneumococcal Polyvalent Vaccine (Do Not Administer Pneumococcal Vaccine) 1 each N/A PRN PRN PRN Reason: Notification Stop: 11/06/22 16:42 Polyethylene Glycol (Polyethylene (Miralax) 17 Gm Pack) 17 gm PO Q6 [facility] Stop: 11/07/22 05:59 Last Admin: 10/08/22 11:34 Dose: 17 gm Senna/Docusate Sodium (Docusate Sodium/Senna 50/8.6mg Tab) 2 tab PO HS [facility] Stop: 11/06/22 20:59 Last Admin: 10/07/22 20:07 Dose: 2 tab Sennosides (Senna 8.6 Mg Tab) 8.6 mg PO BID PRN PRN Reason: Constipation Stop: 11/06/22 19:03 Sodium Biphosphate/Sodium Phosphate (Sod Phosphate/Sod Biphosphate Enema 132 Ml Btl) 132 ml WI ONE PRN PRN Reason: Constipation Stop: 11/06/22 16:42 Tamsulosin HCl (Tamsulosin Hcl 0.4 Mg Cap) 0.4 mg PO QAM [facility] Stop: 11/07/22 08:59 Last Admin: 10/08/22 08:23 Dose: 0.4 mg Thiamine HCl (Thiamine Hcl 100 Mg Tab) 100 mg PO QAM [facility] Stop: 11/07/22 08:59 Last Admin: 10/08/22 08:23 Dose: 100 mg Topiramate (Topiramate 25 Mg Tab) 25 mg PO BID [facility] Stop: 11/06/22 20:59 Last Admin: 10/08/22 08:23 Dose: 25 mg Trazodone HCl (Trazodone Hcl 50 Mg Tab) 75 mg PO HS [facility] Stop: 11/06/22 20:59 Last Admin: 10/07/22 20:05 Dose: 75 mg (5) Opioid dependence Complication of substance-induced condition: uncomplicated (7) HTN (hypertension) Hypertension type: primary hypertension Qualified Code(s): I10 - Essential (primary) hypertension
--- NOTE | 2022-10-08 17:47 | Electrocardiogram Report ---
Test Reason : Blood Pressure : / mmHG Vent. Rate : 089 BPM Atrial Rate : 089 BPM P-R Int : 186 ms QRS Dur : 086 ms QT Int : 354 ms P-R-T Axes : 058 026 058 degrees QTc Int : 430 ms Normal sinus rhythm Low voltage QRS Borderline ECG When compared with ECG of 25-AUG-2022 12:28, No significant change was found Confirmed by Clovis Gavin ([id number] on 10/08/2022 5:46:31 PM Referred By: Anibal Tracy Confirmed By:Clovis Gavin
[2022-10-08] MEDS: DOCUSATE SODIUM/SENNA 50/8.6MG TAB PO SCH (21:13)
[2022-10-08] MEDS: traZODone HCL 50 MG TAB PO SCH (21:13)
[2022-10-09] MEDS: POLYETHYLENE (MIRALAX) 17 GM PACK PO SCH ×3 (00:03→14:06)
[2022-10-09] MEDS: CYCLOBENZAPRINE HCL 10 MG TAB PO SCH ×2 (06:15→14:06)
--- NOTE | 2022-10-09 08:08 | Orthopedic Progress Note ---
Date of Service October 08, 2022 Subjective . Patient notes incisional symptoms, no other new changes. Incision with serosanguineous drainage, has a generalized feeling of decreased strength in the upper extremities, lower extremity motor intact. Impression/plan: First postoperative day status post posterior fusion decompression C7-T1. Mobilize patient today with physical therapy. Review of Systems All systems reviewed & are unremarkable except as noted in HPI & below. Physical Exam . Results & Data Results & Data Laboratory Results . Diagnostic Findings . PG Care Time/CCT Total # of Minutes Spent Total Time Spent with Patient: Total time spent is greater than 50% in coordination of care (as documented) at patient's floor/unit and/or counseling patient: Coding Level of Care Code 90444 Post Operative Follow-Up Diagnoses
--- NOTE | 2022-10-09 08:11 | Orthopedic Progress Note ---
Date of Service October 09, 2022 Subjective . Patient awake, notes that upper extremities still feel somewhat decreased in her strength but improved versus yesterday. Reports having been out of bed to chair. Incision site with serosanguineous drainage, dressing changed. 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 Lower extremity unremarkable. Impression/plan: Postoperative day 2 from posterior cervical decompression and fusion. I discussed with the patient that his upper extremity feelings may be from the positioning, he does feel its improved versus yesterday so we will continue to monitor this. I emphasized the importance of his mobilizing out of bed to the chair and to the bathroom with assistance if necessary. Katelyn was still present this will be DC'd today. Awaiting information relative to discharge planning to rehab center. Review of Systems All systems reviewed & are unremarkable except as noted in HPI & below. Physical Exam . Results & Data Results & Data Laboratory Results . Diagnostic Findings . PG Care Time/CCT Total # of Minutes Spent Total Time Spent with Patient: Total time spent is greater than 50% in coordination of care (as documented) at patient's floor/unit and/or counseling patient: Coding Level of Care Code 86131 Post Operative Follow-Up Diagnoses
[2022-10-09] MEDS: TAMSULOSIN HCL 0.4 MG CAP PO SCH (08:39)
[2022-10-09] MEDS: oxyCODONE/ACETAMINOPHEN 5mg/325mg TAB PO PRN (08:39)
[2022-10-09] MEDS: lisinopril 40 MG TAB PO SCH (08:40)
[2022-10-09] MEDS: DULoxetine HCL 60 MG CAP PO SCH (08:40)
[2022-10-09] MEDS: GABAPENTIN 300 MG CAP PO SCH (08:40)
[2022-10-09] MEDS: THIAMINE HCL 100 MG TAB PO SCH (08:40)
[2022-10-09] MEDS: carvediloL 25 MG TAB PO SCH ×2 (08:40→21:12)
[2022-10-09] MEDS: FOLIC ACID 1 MG TAB PO SCH (08:40)
[2022-10-09] MEDS: amLODIPine BESYLATE 5 MG TAB PO SCH (08:40)
[2022-10-09] MEDS: TOPIRAMATE 25 MG TAB PO SCH ×2 (08:40→21:12)
[2022-10-09 08:53] LABS: Basophils # (auto) 0.05 K/uL (0.00-0.20); Basophils % (auto) 0.5 %; Hematocrit (blood only) 35.3 % (42.0-52.0); Hemoglobin 11.3 g/dl (14.0-18.0); Lymphocytes # (auto) 1.21 K/uL (1.20-3.40); Lymphocytes % (auto) 11.6 %; Mean Corpuscular Hemoglobin 28.1 pg (25.0-34.0); Mean Corpuscular Volume 87.8 fL (80.0-100.0); Mean Platelet Volume 9.5 fL (9.4-12.4); Monocytes # (auto) 1.02 K/uL (0.11-0.59); Monocytes % (auto) 9.8 %; Neutrophils # (auto) 7.91 K/uL (1.40-6.50); Neutrophils % (auto) 76.1 %; Platelet Count 174 K/uL (130-400); RDW Coefficient of Variation 13.8 % (11.5-14.5); RDW Standard Deviation 44.7 fL (36.4-46.3); Red Blood Count 4.02 M/uL (4.70-6.10); White Blood Count 10.39 K/ul (4.8-10.8)
[2022-10-09 09:15] LABS: BUN Creatinine Ratio 19.3 (10-20); Calcium 8.5 mg/dl (8.6-10.3); Creatinine Clr Calc Pharmacy 92.8 ml/min; Est GFR (African American) 103.7 ml/min; Est GFR (Non-African American) 89.5 ml/min; Potassium 3.8 mmol/L (3.5-5.1)
[2022-10-09] MEDS: INSULIN ASPART PER UNIT CHARGE SC SCH ×4 (10:01→21:07)
--- NOTE | 2022-10-09 10:51 | XRay Report ---
XR chest 1V portable HISTORY: 67 years-old Male chf acute shortness of breath with congestive heart failure COMPARISON: 08/25/2022 TECHNIQUE: AP view of the chest FINDINGS: Cardiac silhouette is enlarged. No pneumothorax or overt pulmonary edema. Small pleural effusions. Mi ld left basilar atelectasis. Prior resection of the distal left clavicle. Degenerative changes of the shoulders and spine. Cervicothoracic fusion hardware with midline skin anson. Endoscopy clip of th e abdominal left upper quadrant. IMPRESSION: 1. Cardiomegaly without overt pulmonary edema. 2. Small pleural effusions. ACT 112: Negative or not required by law. The above report was generated using voice recognition software. It may contain grammatical, syntax o r spelling errors. Electronically signed by: Reggie Talavera M.D. 10/09/2022 10:48 AM
--- NOTE | 2022-10-09 11:02 | CT Scan Report ---
CT head/brain wo con CLINICAL HISTORY: 67 years-old Male with R/O stroke. Acute stroke like symptoms TECHNIQUE: Multiple axial CT images of the head were obtained without contrast. A dose lowering tech nique was utilized adhering to the principles of ALARA. CT DOSE: 602.38 mGy.cm COMPARISON: None. FINDINGS: No acute intracranial hemorrhage, midline shift, intracranial mass, hydrocephalus, territorial ischem ia or abnormal extra-axial collection. Mild involutional changes. The calvarium is intact. Postoperative changes of the paranasal sinuses. Chronic bilateral nasal bon e fractures. Mastoid air cells are clear. Partially imaged midline posterior skin anson of the neck . IMPRESSION: No acute intracranial abnormality. ACT 112: Negative or not required by law. The above report was generated using voice recognition software. It may contain grammatical, syntax o r spelling errors. Electronically signed by: Reggie Talavera M.D. 10/09/2022 11:00 AM
[2022-10-09] MEDS: LACTATED RINGER'S 1,000 ML IV SCH (12:28)
[2022-10-09 12:42] LABS: Base Excess VBG -0.2 mEq/L; HCO3 VBG 25 mmol/L; Oxygen Saturation VBG 81.6 %; PCO2 VBG 44 mmHg (38-50); PO2 VBG 51 mmHg; pH VBG 7.37 (7.36-7.41)
[2022-10-09 13:21] LABS: Base Excess ABG 0.8 mEq/L (-9-1.8); HCO3 ABG 26 mmol/L (19-24); Oxygen Saturation ABG 95.1 % (90-95); PCO2 ABG 43 mmHg (35-46); PO2 ABG 68 mmHg (80-95); pH ABG 7.39 (7.35-7.45)
[2022-10-09 13:25] LABS: Allen Test Pos (Pos)
[2022-10-09] MEDS ORDERED: FUROSEMIDE 40 MG/4 ML VIAL IV ONE (13:27)
--- NOTE | 2022-10-09 15:38 | Electrocardiogram Report ---
Test Reason : Blood Pressure : / mmHG Vent. Rate : 070 BPM Atrial Rate : 070 BPM P-R Int : 190 ms QRS Dur : 092 ms QT Int : 398 ms P-R-T Axes : 065 029 057 degrees QTc Int : 429 ms Normal sinus rhythm Minor Nonspecific T wave abnormality Lateral leads Abnormal ECG When compared with ECG of 07-OCT-2022 23:24, No significant change was found Confirmed by Ronnie Johansen ([id number] on 10/09/2022 3:37:58 PM Referred By: Anibal Tracy Confirmed By:Ronnie Johansen
--- NOTE | 2022-10-09 16:46 | Hospitalist Progress Note ---
Date of Service October 09, 2022 Assessment & Plan (1) Acute respiratory failure with hypoxia: Plan: post-operative (2) Alcohol abuse: (3) Cervical radiculopathy: (4) Intercostal neuralgia: (5) Opioid dependence: (6) CAD (coronary atherosclerotic disease): (7) HTN (hypertension): (8) Depression: Plan Mr. 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 Acute change in mental status Noted to be less responsive this morning with difficulty in speaking and garbled speech Complaint pain all over but otherwise remained hemodynamically stable Did not have any neurodeficit on gross examination CT of the head, chest x-ray, EKG and ABG were unremarkable except O2 was low at 68 with normal saturation Received gabapentin 900 mg and oxycodone this morning and has been getting Flexeril Likely secondary to narcotic effect from medication Will check vitals every 2 hourly and hold gabapentin, Flexeril and oxycodone Things are getting better later on #Acute hypoxic respiratory failure s/p surgery Low saturations post-op, on 3L -Wean O2 for goal >92% -Incentive spirometry ordered to prevent post-operative atelectasis -He has been doing much better this morning and has been saturating normally on room air -Does not have any shortness of breath at rest -Minimal crackles at the bases otherwise unremarkable examination -Chest x-ray did not show any pulmonary edema -Received 40 mg Lasix to see if there is any improvement of any oxygenation #Chronic Alcohol Dependence Reported last drink ~2 weeks ago given anticipation of procedure No hx of seizure/DTs; evaluated post-operatively, no clear signs of withdrawal at time of eval (normotensive, normal rate) Hold home clonazepam to avoid co-administration of benzo with AWSS AWSS protcol with prn ativan PO Thiamine and Folate in am No signs and or symptoms of alcohol withdrawal #Chronic multi-level stenosis c/b radiculopathy #Intercostal neuralgia #Chronic opioid dependence Home regimen: oxycodone-acetaminophen, topiramate, gabapentin (reports 1800mg BID) Medical Marijuana as well -Post surgical pain management per ortho spine -Will continue prescribed dose of gabapentin 900mg BID, can consider TID contingent on symptoms/recovery -Denies any significant pain at rest -Has been moving all limbs equally #Obstructive CAD s/p FRANCY RCA 2012, stable #HTN followed cards 07/2022 for pre-operative risk management, RCRI 0.9% -Plavix to be resumed upon clearance from Ortho-Spine (ASA allergy) -Continue Lisinopril 40mg, Coreg 25mg BID, Amlodipine 10mg -No cardiac symptoms and blood pressure remains stable #Prior provoked DVT/PE left peroneal vein #PVD -completed AC treatment 2020 -DVT ppx: SCD and JIA hose -Pharmacologic anticoagulation when appropriate as per surgery #HLD -Rosuvastatin 20mg #Prediabetes -A1c 6.3% 04/2022 -Hgb A1C ordered for am -SSI for glycemic control #BPH -Continue Tamsulosin 0.4 mg #History of sleep apnea Remote sleep study ~2006, no follow up since; documented noncompliance with CPAP Encourage follow up as OP #GERD -Continue pantoprazole #Anxiety #Depression #Insomnia -Hold home clonazepam given active AWSS w/ prn ativan -Continue home duloxetine -Continue home trazodone Admission and Anticipated Discharge Date Admission Date: October 07, 2022 Subjective 10/08/2022 The patient was seen and examined in medical telemetry unit He is a status post C7-T1 posterior decompression and fusion Has been doing fine following the procedure Denies any significant symptoms and no numbness and or tingling involving any of the extremities 10/09/2022 The patient was seen and examined in medical telemetry unit This morning he was very drowsy and less responsive Noted to be very difficult with speech with garbled speech as well He remained hemodynamically stable though Review of Systems Review of Systems: All systems reviewed and are unremarkable except as noted below Physical Exam Physical Exam: Lying in bed and looks very ill and lethargic Constitutional: well developed, well nourished, + ill appearing and + obese Eyes: PERRL, conjunctivae normal, anicteric sclerae ENMT: external ear and nose normal, oropharynx normal Neck: trachea midline, no thyromegaly Respiratory: no respiratory distress Auscultation: + diminished lung sounds and + crackles (Occasional crackles at the bases) Cardiovascular: Rate/Rhythm: regular rate and regular rhythm Heart Sounds: normal S1 and normal S2; no murmur Extremities: + edema (Trace edema bilaterally) Gastrointestinal (Abdomen): Inspection/Auscultation: + abdomen distended and normal bowel sounds Percussion/Palpation: abdomen soft; abdomen nontender Musculoskeletal: No acute arthritis involving any joint. Status post neck surgery and has neck pain Neurologic: normal touch/pain/proprioception and moves all extremities; no focal motor deficits Lymphatic: no cervical or axillary lymphadenopathy Results & Data Results & Data Vital Signs (Past 12 Hours) Vital Signs Temp Pulse Pulse Resp BP Pulse Ox O2 Del Method 10/09/22 16:03 68 10/09/22 15:27 37.0 C 74 20 135/78 97 Nasal Cannula 10/09/22 13:10 36.3 C L 72 18 124/76 94 Nasal Cannula 10/09/22 12:02 36.7 C 68 20 114/68 91 Room Air 10/09/22 09:37 36.5 C 73 18 153/82 H 96 Room Air 10/09/22 08:35 36.7 C 80 18 143/83 H 95 Room Air 10/09/22 08:23 36.8 C 78 20 143/85 H 91 Room Air 10/09/22 08:01 Room Air 10/09/22 08:00 10/09/22 07:26 82 O2 Del Method O2 Flow Rate 10/09/22 16:03 10/09/22 15:27 2 10/09/22 13:10 2 10/09/22 12:02 10/09/22 09:37 10/09/22 08:35 10/09/22 08:23 10/09/22 08:01 10/09/22 08:00 Room Air 10/09/22 07:26 Laboratory Results Short CBC 10/09/22 Range/Units 08:05 WBC 10.39 (4.8-10.8) K/ul Hgb 11.3 L (14.0-18.0) g/dl Hct 35.3 L (42.0-52.0) % Plt Count 174 (130-400) K/uL BMP 10/09/22 08:05 Sodium 139 Potassium 3.8 Chloride 108 H Carbon Dioxide 27 BUN 17 Creatinine 0.88 Glucose 167 H Calcium 8.5 L Medications Administered Current Inpatient Medications Acetaminophen (Acetaminophen 500 Mg Tab) 1,000 mg PO Q8H PRN PRN Reason: MILD Pain Scale 1,2,3 & Pre PT Stop: 11/06/22 16:42 Al Hydrox/Mg Hydrox/Simethicone (Aluminum/Magnesium Susp 30 Ml Udc) 30 ml PO Q6H PRN PRN Reason: Dyspepsia Stop: 11/06/22 16:42 Last Admin: 10/08/22 00:18 Dose: 30 ml Amlodipine Besylate (Amlodipine Besylate 5 Mg Tab) 10 mg PO QAM [facility] Stop: 11/07/22 08:59 Last Admin: 10/09/22 08:40 Dose: 10 mg Bisacodyl (Bisacodyl 10 Mg Supp) 10 mg MS DAILY PRN PRN Reason: Constipation Stop: 11/06/22 16:42 Carvedilol (Carvedilol 25 Mg Tab) 25 mg PO BID MARIO Stop: 11/06/22 20:59 Last Admin: 10/09/22 08:40 Dose: 25 mg Clonazepam (Clonazepam 1 Mg Tab) 1 mg PO TID MARIO Stop: 11/06/22 20:59 Last Admin: 10/07/22 20:10 Dose: 1 mg Cyclobenzaprine HCl (Cyclobenzaprine Hcl 10 Mg Tab) 10 mg PO Q8 MARIO Stop: 11/06/22 21:59 Last Admin: 10/09/22 14:06 Dose: Not Given Dextrose (Dextrose 50% 50 Ml Syringe) 25 - 50 ml IV UD PRN; Protocol PRN Reason: Hypoglycemia Protocol Stop: 11/06/22 20:36 Diphenhydramine HCl (Diphenhydramine Capsule 25 Mg Cap) 25 mg PO Q6H PRN PRN Reason: Allergic Rhinitis/Insomnia Stop: 11/06/22 16:42 Duloxetine HCl (Duloxetine Hcl 60 Mg Cap) 60 mg PO QAM MARIO Stop: 11/07/22 08:59 Last Admin: 10/09/22 08:40 Dose: 60 mg Epinephrine (Racepinephrine 2.25% Nebu Soln 0.5 Ml Vial) 0.5 ml INH NOW PRN PRN Reason: If stridor present Famotidine (Famotidine 20 Mg Tab) 20 mg PO Q12H PRN PRN Reason: Dyspepsia Stop: 11/06/22 16:42 Folic Acid (Folic Acid 1 Mg Tab) 1 mg PO QAM [facility] Stop: 11/07/22 08:59 Last Admin: 10/09/22 08:40 Dose: 1 mg Gabapentin (Gabapentin 300 Mg Cap) 900 mg PO BID MARIO Stop: 11/06/22 20:59 Last Admin: 10/09/22 08:40 Dose: 900 mg Glucagon (Glucagon For Inj 1 Mg Vial) 1 mg SQ UD PRN; Protocol PRN Reason: Hypoglycemia Protocol Stop: 11/06/22 20:36 Glucose (Glucose 10 Tab/Tube) 4 - 8 tab PO UD PRN; Protocol PRN Reason: Hypoglycemia Treatment Stop: 11/06/22 20:36 Glucose (Glucose 40% Gel 15 Gm Tube) 15 - 30 gm PO UD PRN; Protocol PRN Reason: Hypoglycemia Protocol Stop: 11/06/22 20:36 Hydromorphone HCl (Hydromorphone Inj 0.5 Mg/0.5 Ml Syr) 0.5 mg IV Q3H PRN PRN Reason: MODERATE Pain (Scale 4,5,6) & Pre PT Stop: 10/21/22 16:42 Last Admin: 10/07/22 20:10 Dose: 0.5 mg Hydromorphone HCl (Hydromorphone Inj 0.5 Mg/0.5 Ml Syr) 1 mg IV Q3H PRN PRN Reason: SEVERE pain (7,8,9,10) Stop: 10/21/22 17:10 Last Admin: 10/08/22 21:17 Dose: 1 mg Hydroxyzine HCl (Hydroxyzine Hcl 25 Mg Tab) 25 mg PO Q8H PRN PRN Reason: Anxiety Stop: 11/06/22 16:42 Dexamethasone 8 mg/ Syringe 2 mls @ 1 mls/min IV NOW PRN PRN Reason: If stridor present Lactated Ringer's (Lr) 1,000 mls @ 75 mls/hr IV .[id number] [facility] Stop: 11/06/22 18:59 Last Admin: 10/09/22 12:28 Dose: 75 mls/hr Promethazine HCl 12.5 mg/ (Sodium Chloride) 50.5 mls @ 202 mls/hr IV Q6H PRN PRN Reason: Nausea &/or Vomiting Stop: 11/06/22 16:42 Influenza Virus Vaccine Quadrival (Do Not Administer Flu Vaccine) 1 each N/A PRN PRN PRN Reason: Notification Stop: 11/06/22 16:42 Insulin Aspart (Insulin Aspart Per Unit Charge) 0 units SC ACHS [facility] Stop: 11/06/22 20:59 Last Admin: 10/09/22 14:11 Dose: 1 units Lisinopril (Lisinopril 40 Mg Tab) 40 mg PO QAM [facility] Stop: 11/07/22 08:59 Last Admin: 10/09/22 08:40 Dose: 40 mg Lorazepam (Lorazepam 0.5 Mg Tab) 0.5 mg PO Q8H PRN PRN Reason: Sedation/Anxiety Stop: 11/06/22 16:42 Lorazepam (Lorazepam 2 Mg/1 Ml Vial) 0.5 mg IV Q8H PRN PRN Reason: Sedation/Anxiety Stop: 11/06/22 16:42 Lorazepam (Lorazepam 1 Mg Tab) 2 mg PO UD PRN; Protocol PRN Reason: EtOH Withdrawal AWSS Score 8,9 Stop: 11/06/22 19:41 Lorazepam (Lorazepam 1 Mg Tab) 3 mg PO ONCE PRN; Protocol PRN Reason: EtOH Withdrawal AWSS Score 10 & above Lorazepam (Lorazepam 1 Mg Tab) 1 mg PO UD PRN; Protocol PRN Reason: EtOH Withdrawal AWSS Score 6,7 Stop: 11/06/22 19:41 Magnesium Hydroxide (Magnesium Hydroxide Susp 30 Ml Udc) 30 ml PO Q24H PRN PRN Reason: Constipation Stop: 11/06/22 16:42 Metoclopramide HCl (Metoclopramide Hcl Inj 5 Mg/Ml 2 Ml Vial) 10 mg IV Q6H PRN PRN Reason: Nausea &/or Vomiting Stop: 11/06/22 16:42 Miscellaneous (Carbohydrates For Hypoglycemia ) 15 - 30 gm PO UD PRN PRN Reason: Hypoglycemia Protocol Stop: 11/06/22 20:36 Naloxone HCl (Naloxone Hcl 0.4 Mg/1 Ml Vial/Carp) 0.1 mg IV Q5M PRN PRN Reason: Oversedation/Resp depression Stop: 11/06/22 16:42 Ondansetron HCl (Ondansetron Inj 2 Mg/Ml 2 Ml Vial) 4 mg IV Q6H PRN PRN Reason: Nausea &/or Vomiting Stop: 11/06/22 16:42 Ondansetron HCl (Ondansetron 4 Mg Od Tab) 4 mg PO Q6H PRN PRN Reason: Nausea Stop: 11/06/22 16:42 Oxycodone/Acetaminophen (Oxycodone/Acetaminophen 5mg/325mg Tab) 1 - 2 tab PO Q4H PRN PRN Reason: Pain & Pre PT Stop: 10/21/22 16:42 Last Admin: 10/09/22 08:39 Dose: 2 tab Pneumococcal Polyvalent Vaccine (Do Not Administer Pneumococcal Vaccine) 1 each N/A PRN PRN PRN Reason: Notification Stop: 11/06/22 16:42 Polyethylene Glycol (Polyethylene (Miralax) 17 Gm Pack) 17 gm PO Q6 MARIO Stop: 11/07/22 05:59 Last Admin: 10/09/22 14:06 Dose: Not Given Senna/Docusate Sodium (Docusate Sodium/Senna 50/8.6mg Tab) 2 tab PO HS [facility] Stop: 11/06/22 20:59 Last Admin: 10/08/22 21:13 Dose: 2 tab Sennosides (Senna 8.6 Mg Tab) 8.6 mg PO BID PRN PRN Reason: Constipation Stop: 11/06/22 19:03 Last Admin: 10/09/22 08:40 Dose: 8.6 mg Sodium Biphosphate/Sodium Phosphate (Sod Phosphate/Sod Biphosphate Enema 132 Ml Btl) 132 ml MS ONE PRN PRN Reason: Constipation Stop: 11/06/22 16:42 Tamsulosin HCl (Tamsulosin Hcl 0.4 Mg Cap) 0.4 mg PO QAM [facility] Stop: 11/07/22 08:59 Last Admin: 10/09/22 08:39 Dose: 0.4 mg Thiamine HCl (Thiamine Hcl 100 Mg Tab) 100 mg PO QAM [facility] Stop: 11/07/22 08:59 Last Admin: 10/09/22 08:40 Dose: 100 mg Topiramate (Topiramate 25 Mg Tab) 25 mg PO BID [facility] Stop: 11/06/22 20:59 Last Admin: 10/09/22 08:40 Dose: 25 mg Trazodone HCl (Trazodone Hcl 50 Mg Tab) 75 mg PO HS [facility] Stop: 11/06/22 20:59 Last Admin: 10/08/22 21:13 Dose: 75 mg (5) Opioid dependence Complication of substance-induced condition: uncomplicated (7) HTN (hypertension) Hypertension type: primary hypertension Qualified Code(s): I10 - Essential (primary) hypertension
[2022-10-09] MEDS ORDERED: PROMETHAZINE HCL 12.5 MG in SODIUM CHLORIDE 0.9% 50 ML IV PRN (19:17)
[2022-10-09] MEDS: HYDROmorphone INJ 0.5 MG/0.5 ML SYR IV PRN (21:12)
[2022-10-10] MEDS: HYDROmorphone INJ 0.5 MG/0.5 ML SYR IV PRN ×5 (03:10→23:51)
[2022-10-10 06:22] LABS: Basophils # (auto) 0.04 K/uL (0.00-0.20); Basophils % (auto) 0.4 %; Eosinophils # (auto) 0.39 K/uL (0.00-0.50); Hematocrit (blood only) 33.7 % (42.0-52.0); Hemoglobin 10.8 g/dl (14.0-18.0); Immature Granulocytes # (auto) 0.09 K/uL (0.01-0.20); Immature Granulocytes % (auto) 0.9 %; Lymphocytes % (auto) 19.7 %; Mean Corpuscular Hemoglobin 27.8 pg (25.0-34.0); Mean Corpuscular Volume 86.9 fL (80.0-100.0); Mean Platelet Volume 9.3 fL (9.4-12.4); Monocytes # (auto) 0.94 K/uL (0.11-0.59); Monocytes % (auto) 9.8 %; Neutrophils # (auto) 6.28 K/uL (1.40-6.50); Neutrophils % (auto) 65.2 %; Platelet Count 173 K/uL (130-400); RDW Coefficient of Variation 13.8 % (11.5-14.5); RDW Standard Deviation 43.9 fL (36.4-46.3); Red Blood Count 3.88 M/uL (4.70-6.10); White Blood Count 9.64 K/ul (4.8-10.8)
[2022-10-10 06:49] LABS: BUN Creatinine Ratio 18.4 (10-20); Calcium 8.2 mg/dl (8.6-10.3); Creatinine Clr Calc Pharmacy 108.4 ml/min; Est GFR (African American) 110.2 ml/min; Est GFR (Non-African American) 95.1 ml/min; Magnesium 1.8 mg/dl (1.7-2.4); Potassium 3.5 mmol/L (3.5-5.1)
[2022-10-10] MEDS: lisinopril 40 MG TAB PO SCH (08:45)
[2022-10-10] MEDS: amLODIPine BESYLATE 5 MG TAB PO SCH (08:45)
[2022-10-10] MEDS: THIAMINE HCL 100 MG TAB PO SCH (08:45)
[2022-10-10] MEDS: DULoxetine HCL 60 MG CAP PO SCH (08:45)
[2022-10-10] MEDS: FOLIC ACID 1 MG TAB PO SCH (08:45)
[2022-10-10] MEDS: TAMSULOSIN HCL 0.4 MG CAP PO SCH (08:45)
[2022-10-10] MEDS: TOPIRAMATE 25 MG TAB PO SCH ×2 (08:45→20:22)
[2022-10-10] MEDS: carvediloL 25 MG TAB PO SCH ×2 (08:45→20:22)
[2022-10-10] MEDS: INSULIN ASPART PER UNIT CHARGE SC SCH ×4 (08:49→21:01)
[2022-10-10] MEDS: traMADol HCL 50 MG TABLET PO PRN ×2 (12:42→19:21)
--- NOTE | 2022-10-10 15:37 | Hospitalist Progress Note ---
Date of Service October 10, 2022 Assessment & Plan (1) Acute respiratory failure with hypoxia: Plan: post-operative (2) Alcohol abuse: (3) Cervical radiculopathy: (4) Intercostal neuralgia: (5) Opioid dependence: (6) CAD (coronary atherosclerotic disease): (7) HTN (hypertension): (8) Depression: Plan Mr. 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 Acute change in mental status Noted to be less responsive with difficulty in speaking and garbled speech Complaint pain all over but otherwise remained hemodynamically stable No neurodeficit on gross examination CT of the head, chest x-ray, EKG and ABG were unremarkable except O2 was low at 68 with normal saturation Received gabapentin 900 mg and oxycodone this morning and had been getting Flexeril Likely secondary to narcotic effect from medication Continue to hold gabapentin and oxycodone. Flexeril swicthed to methocrabamol Stable Acute hypoxic respiratory failure s/p surgery Low saturations post-op, on 3L -Wean O2 for goal >92% -Incentive spirometry to prevent post-operative atelectasis -Chest x-ray did not show any pulmonary edema -Received 40 mg Lasix to see if there is any improvement of any oxygenation Chronic Alcohol Dependence Reported last drink ~2 weeks ago given anticipation of procedure No hx of seizure/DTs; evaluated post-operatively, no clear signs of withdrawal at time of eval (normotensive, normal rate) Hold home clonazepam to avoid co-administration of benzo with AWSS AWSS protcol with prn ativan PO Thiamine and Folate LLE pain Per nursing pt complaining of pain and swelling Stat venous doppler -no evidence of DVT Home Plavix re-started Chronic multi-level stenosis c/b radiculopathy Intercostal neuralgia Chronic opioid dependence Home regimen: oxycodone-acetaminophen, topiramate, gabapentin (reports 1800mg BID) Medical Marijuana as well -Post surgical pain management per ortho spine -Will continue prescribed dose of gabapentin 900mg BID, can consider TID contingent on symptoms/recovery -Denies any significant pain at rest -Has been moving all limbs equally Obstructive CAD s/p FRANCY RCA 2012, stable HTN followed cards 07/2022 for pre-operative risk management, RCRI 0.9% -Plavix resumed post-op -Continue Lisinopril 40mg, Coreg 25mg BID, Amlodipine 10mg -No cardiac symptoms and blood pressure remains stable #Prior provoked DVT/PE left peroneal vein #PVD -completed AC treatment 2020 -DVT ppx: started back on plavix #HLD -Rosuvastatin 20mg #Prediabetes -A1c 6.3% 04/2022 -Hgb A1C 6.6 -SSI for glycemic control #BPH -Continue Tamsulosin 0.4 mg #History of sleep apnea Remote sleep study ~2006, no follow up since; documented noncompliance with CPAP Encourage follow up as OP #GERD -Continue pantoprazole #Anxiety #Depression #Insomnia -Hold home clonazepam given active AWSS w/ prn ativan -Continue home duloxetine -Continue home trazodone Admission and Anticipated Discharge Date Admission Date: October 07, 2022 Subjective Was seen. Concerned about his neck pain. Review of Systems Review of Systems: All systems reviewed & are unremarkable except as noted in Subjective Physical Exam Physical Exam: General: Alert Neuro: Noted neck pain HEENT: NC/AT, unable to move neck with full ROM CV: RRR Resp: no increased effort of breathing. Abdomen: Soft, nontender, nondistended. Extremities: No edema in lower extremities bilaterally. Results & Data Results & Data Vital Signs (Past 12 Hours) Vital Signs Temp Pulse Pulse Resp BP Pulse Ox O2 Del Method 10/10/22 15:04 36.7 C 77 18 159/75 H 95 Room Air 10/10/22 08:45 Nasal Cannula 10/10/22 11:43 36.7 C 75 20 112/71 97 Nasal Cannula 10/10/22 07:24 36.4 C L 74 20 150/87 H 97 Nasal Cannula 10/10/22 07:46 75 O2 Flow Rate 10/10/22 15:04 10/10/22 08:45 2 10/10/22 11:43 1 10/10/22 07:24 1 10/10/22 07:46 (5) Opioid dependence Complication of substance-induced condition: uncomplicated (7) HTN (hypertension) Hypertension type: primary hypertension Qualified Code(s): I10 - Essential (p rimary) hypertension
[2022-10-10] MEDS ORDERED: METHOCARBAMOL 500 MG TABLET PO PRN (16:25)
[2022-10-11] MEDS: HYDROmorphone INJ 0.5 MG/0.5 ML SYR IV PRN ×6 (05:39→20:24)
[2022-10-11] MEDS: TAMSULOSIN HCL 0.4 MG CAP PO SCH (09:15)
[2022-10-11] MEDS: amLODIPine BESYLATE 5 MG TAB PO SCH (09:15)
[2022-10-11] MEDS: TOPIRAMATE 25 MG TAB PO SCH ×2 (09:15→20:21)
[2022-10-11] MEDS: lisinopril 40 MG TAB PO SCH (09:15)
[2022-10-11] MEDS: THIAMINE HCL 100 MG TAB PO SCH (09:15)
[2022-10-11] MEDS: carvediloL 25 MG TAB PO SCH ×2 (09:15→20:20)
[2022-10-11] MEDS: DULoxetine HCL 60 MG CAP PO SCH (09:15)
[2022-10-11] MEDS: FOLIC ACID 1 MG TAB PO SCH (09:15)
[2022-10-11] MEDS: INSULIN ASPART PER UNIT CHARGE SC SCH ×4 (09:17→20:14)
--- NOTE | 2022-10-11 09:46 | Orthopedic Progress Note ---
Date of Service October 11, 2022 Subjective . Patient is 4 days status post surgery, overall feels improved with less pain in the operative area. He does complain of some pain in around the left foot in the metatarsal head region. Has been out of bed, Zepeda was replaced the other day. Exam of left foot is unremarkable no areas of erythema or skin breakdown, can flex and extend toes with some limited symptoms in the metatarsal head region. Incision is without erythema but continues with serous drainage. Patient is more alert and awake today and will talk without any slurring of speech. Plan: The dressing was changed for the operative site, serous drainage was expressed, but no findings to suggest an infectious process. I will have the patient go with oral Keflex as a precaution until drainage decreases. Also obtain cervical radiographs and continue with rehab placement. Review of Systems All systems reviewed & are unremarkable except as noted in HPI & below. Physical Exam . Results & Data Results & Data Laboratory Results . Diagnostic Findings . PG Care Time/CCT Total # of Minutes Spent Total Time Spent with Patient: Total time spent is greater than 50% in coordination of care (as documented) at patient's floor/unit and/or counseling patient: Coding Level of Care Code 11223 Post Operative Follow-Up Diagnoses
[2022-10-11 10:24] LABS: Basophils # (auto) 0.05 K/uL (0.00-0.20); Basophils % (auto) 0.5 %; Eosinophils # (auto) 0.53 K/uL (0.00-0.50); Eosinophils % (auto) 5.7 %; Hematocrit (blood only) 32.1 % (42.0-52.0); Hemoglobin 10.8 g/dl (14.0-18.0); Immature Granulocytes # (auto) 0.11 K/uL (0.01-0.20); Immature Granulocytes % (auto) 1.2 %; Lymphocytes # (auto) 1.64 K/uL (1.20-3.40); Lymphocytes % (auto) 17.7 %; Mean Corpuscular Hemoglobin 28.5 pg (25.0-34.0); Mean Corpuscular Hgb Conc 33.6 g/dL (32.0-36.0); Mean Corpuscular Volume 84.7 fL (80.0-100.0); Mean Platelet Volume 9.2 fL (9.4-12.4); Monocytes # (auto) 0.98 K/uL (0.11-0.59); Monocytes % (auto) 10.6 %; Neutrophils # (auto) 5.94 K/uL (1.40-6.50); Neutrophils % (auto) 64.3 %; Platelet Count 195 K/uL (130-400); RDW Coefficient of Variation 13.8 % (11.5-14.5); RDW Standard Deviation 42.5 fL (36.4-46.3); Red Blood Count 3.79 M/uL (4.70-6.10); White Blood Count 9.25 K/ul (4.8-10.8)
[2022-10-11 10:46] LABS: Albumin Globulin Ratio 1.3 (0.9-2); Albumin Level 3.4 gm/dl (3.4-5.0); BUN Creatinine Ratio 23.2 (10-20); Bilirubin,Total 0.7 mg/dl (0.2-1.0); Calcium 8.5 mg/dl (8.6-10.3); Creatinine Clr Calc Pharmacy 119.4 ml/min; Est GFR (African American) 114.7 ml/min; Est GFR (Non-African American) 98.9 ml/min; Globulin 2.7 gm/dl (2.5-4.0); Potassium 3.6 mmol/L (3.5-5.1); Total Protein 6.1 gm/dl (6.0-8.3)
--- NOTE | 2022-10-11 11:44 | Ultrasound Report ---
LEFT LOWER EXTREMITY VENOUS DOPPLER CLINICAL HISTORY: pain and swelling COMPARISON STUDY: Bilateral lower extremity venous Doppler ultrasound August 25, 2022. TECHNIQUE: Sonography of the deep venous system of the left lower extremity was performed. Compressi on and augmentation were evaluated. FINDINGS: The left common femoral, superficial femoral and popliteal veins were compressible. Augmen tation was normal. Flow was shown within the deep calf vessels. IMPRESSION: No evidence of deep venous thrombus within the left lower extremity. ACT 112: Negative or not required by law. Electronically signed by: Nomi Voss M.D. 10/11/2022 11:43 AM
--- NOTE | 2022-10-11 11:44 | XRay Report ---
XR cervical spine 2 or 3V CLINICAL HISTORY: s/p surgery COMPARISON STUDY: Cervical spine CT June 20, 2022. Fluoroscopic images of the cervical spine September. MRI of the cervical spine June 07, 2022. FINDINGS: Surgical skin anson are noted. There are no unexpected radiopaque foreign bodies. Previou s C5-C7 anterior discectomy and fusion is noted. Previous C2-C5 posterior fusion is noted. Postoperat uri findings consistent with posterior fusion at C6-T2 are noted. Hardware is intact. No fractures ar e identified. IMPRESSION: Postoperative radiographs demonstrating interval posterior cervicothoracic decompression and fusion, as described above. Hardware intact. No unexpected radiopaque foreign bodies. ACT 112: Negative or not required by law. Electronically signed by: Nomi Voss M.D. 10/11/2022 11:43 AM
[2022-10-11] MEDS: ACETAMINOPHEN 500 MG TAB PO PRN (12:08)
[2022-10-11] MEDS: cephALEXin 500 MG CAP PO SCH ×3 (12:08→20:21)
[2022-10-11] MEDS: CLOPIDOGREL BISULFATE 75 MG TAB PO SCH (13:43)
[2022-10-11] MEDS: traMADol HCL 50 MG TABLET PO PRN ×2 (16:17→22:41)
--- NOTE | 2022-10-11 21:50 | Hospitalist Progress Note ---
Date of Service October 11, 2022 Assessment & Plan (1) Acute respiratory failure with hypoxia: Plan: post-operative (2) Alcohol abuse: (3) Cervical radiculopathy: (4) Intercostal neuralgia: (5) Opioid dependence: (6) CAD (coronary atherosclerotic disease): (7) HTN (hypertension): (8) Depression: Plan Mr. 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 Acute change in mental status Noted to be less responsive with difficulty in speaking and garbled speech Complaint pain all over but otherwise remained hemodynamically stable No neurodeficit on gross examination CT of the head, chest x-ray, EKG and ABG were unremarkable except O2 was low at 68 with normal saturation Received gabapentin 900 mg and oxycodone this morning and had been getting Flexeril Likely secondary to narcotic effect from medication Continue to hold gabapentin and oxycodone. Flexeril swicthed to methocrabamol Stable Acute hypoxic respiratory failure s/p surgery Low saturations post-op, on 3L -Wean O2 for goal >92% -Incentive spirometry to prevent post-operative atelectasis -Chest x-ray did not show any pulmonary edema -Received 40 mg Lasix to see if there is any improvement of any oxygenation Chronic Alcohol Dependence Reported last drink ~2 weeks ago given anticipation of procedure No hx of seizure/DTs; evaluated post-operatively, no clear signs of withdrawal at time of eval (normotensive, normal rate) Hold home clonazepam to avoid co-administration of benzo with AWSS AWSS protcol with prn ativan PO Thiamine and Folate LLE pain Per nursing pt complaining of pain and swelling Stat venous doppler -no evidence of DVT Home Plavix re-started Chronic multi-level stenosis c/b radiculopathy Intercostal neuralgia Chronic opioid dependence Home regimen: oxycodone-acetaminophen, topiramate, gabapentin (reports 1800mg BID) Medical Marijuana as well -Post surgical pain management per ortho spine -Will continue prescribed dose of gabapentin 900mg BID, can consider TID contingent on symptoms/recovery -Denies any significant pain at rest -Has been moving all limbs equally Obstructive CAD s/p FRANCY RCA 2012, stable HTN followed cards 07/2022 for pre-operative risk management, RCRI 0.9% -Plavix resumed post-op -Continue Lisinopril 40mg, Coreg 25mg BID, Amlodipine 10mg -No cardiac symptoms and blood pressure remains stable #Prior provoked DVT/PE left peroneal vein #PVD -completed AC treatment 2020 -DVT ppx: started back on plavix #HLD -Rosuvastatin 20mg #Prediabetes -A1c 6.3% 04/2022 -Hgb A1C 6.6 -SSI for glycemic control #BPH -Continue Tamsulosin 0.4 mg #History of sleep apnea Remote sleep study ~2006, no follow up since; documented noncompliance with CPAP Encourage follow up as OP #GERD -Continue pantoprazole #Anxiety #Depression #Insomnia -Hold home clonazepam given active AWSS w/ prn ativan -Continue home duloxetine -Continue home trazodone Admission and Anticipated Discharge Date Admission Date: October 07, 2022 Subjective Was seen. Concerned about his neck pain. Review of Systems Review of Systems: All systems reviewed & are unremarkable except as noted in Subjective Physical Exam Physical Exam: General: Alert Neuro: States pain all over today HEENT: NC/AT, unable to move neck with full ROM CV: RRR Resp: no increased effort of breathing. Abdomen: Soft, nontender, nondistended. Extremities: No edema in lower extremities bilaterally. Results & Data Results & Data Vital Signs (Past 12 Hours) Vital Signs Temp Pulse Pulse Pulse Resp BP BP 10/11/22 19:44 36.3 C L 70 18 135/60 10/11/22 16:00 36.9 C 66 16 122/71 10/11/22 15:48 75 10/11/22 14:18 66 10/11/22 14:02 10/11/22 11:39 36.9 C 69 20 126/80 Pulse Ox O2 Del Method 10/11/22 19:44 97 Room Air 10/11/22 16:00 96 Room Air 10/11/22 15:48 10/11/22 14:18 10/11/22 14:02 Room Air 10/11/22 11:39 97 Room Air (5) Opioid dependence Complication of substance-induced condition: uncomplicated (7) HTN (hypertension) Hypertension type: primary hypertension Qualified Code(s): I10 - Essential (primary) hypertension
[2022-10-12] MEDS: HYDROmorphone INJ 0.5 MG/0.5 ML SYR IV PRN (00:15)
[2022-10-12] MEDS: METHOCARBAMOL 500 MG TABLET PO PRN ×2 (02:50→16:16)
[2022-10-12] MEDS: traMADol HCL 50 MG TABLET PO PRN ×4 (04:58→21:17)
[2022-10-12] MEDS: THIAMINE HCL 100 MG TAB PO SCH (09:16)
[2022-10-12] MEDS: amLODIPine BESYLATE 5 MG TAB PO SCH (09:16)
[2022-10-12] MEDS: cephALEXin 500 MG CAP PO SCH ×4 (09:16→21:17)
[2022-10-12] MEDS: carvediloL 25 MG TAB PO SCH ×2 (09:16→21:17)
[2022-10-12] MEDS: lisinopril 40 MG TAB PO SCH (09:17)
[2022-10-12] MEDS: DULoxetine HCL 60 MG CAP PO SCH (09:17)
[2022-10-12] MEDS: TOPIRAMATE 25 MG TAB PO SCH ×2 (09:17→21:17)
[2022-10-12] MEDS: TAMSULOSIN HCL 0.4 MG CAP PO SCH (09:17)
[2022-10-12] MEDS: FOLIC ACID 1 MG TAB PO SCH (09:17)
[2022-10-12] MEDS: CLOPIDOGREL BISULFATE 75 MG TAB PO SCH (09:17)
[2022-10-12] MEDS: INSULIN ASPART PER UNIT CHARGE SC SCH ×4 (09:34→20:55)
--- NOTE | 2022-10-12 10:08 | Orthopedic Progress Note ---
Date of Service October 12, 2022 Subjective . Patient notes overall general improvement, notes he had a bowel movement, and has been out of bed to the chair. Still with some operative site pain but going a longer times without pain medication, now MS 0.5 on an as-needed basis and tramadol 1 or 2 tablets every 6. 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 Cervical radiographs reviewed, no issues noted with instrumentation. Plan: Discontinue Zepeda today out of bed to chair and to bathroom. Mobilize, we will continue to work on rehab placement. Review of Systems All systems reviewed & are unremarkable except as noted in HPI & below. Physical Exam . Results & Data Results & Data Laboratory Results . Diagnostic Findings . PG Care Time/CCT Total # of Minutes Spent Total Time Spent with Patient: Total time spent is greater than 50% in coordination of care (as documented) at patient's floor/unit and/or counseling patient: Coding Level of Care Code 98035 Post Operative Follow-Up Diagnoses
--- NOTE | 2022-10-12 16:04 | Hospitalist Progress Note ---
Date of Service October 12, 2022 Assessment & Plan (1) Acute respiratory failure with hypoxia: Plan: post-operative (2) Alcohol abuse: (3) Cervical radiculopathy: (4) Intercostal neuralgia: (5) Opioid dependence: (6) CAD (coronary atherosclerotic disease): (7) HTN (hypertension): (8) Depression: Plan Mr. 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 Acute change in mental status Noted to be less responsive with difficulty in speaking and garbled speech postop Complaint pain all over but otherwise remained hemodynamically stable CT of the head, chest x-ray, EKG and ABG were unremarkable except O2 was low at 68 with normal saturation Received gabapentin 900 mg and oxycodone as well as Flexeril Likely secondary to side effects from medications Continue to hold gabapentin and oxycodone. Flexeril switched to methocarbamol Stable Acute hypoxic respiratory failure s/p surgery Low saturations post-op, on 3L -Wean O2 for goal >92%, currently on RA -Incentive spirometry to prevent post-operative atelectasis -Chest x-ray did not show any pulmonary edema -Received 40 mg Lasix to see if there is any improvement of any oxygenation Stable at this time Chronic Alcohol Dependence Reported last drink ~2 weeks ago given anticipation of procedure No hx of seizure/DTs; evaluated post-operatively, no clear signs of withdrawal at time of eval (normotensive, normal rate) Hold home clonazepam to avoid co-administration of benzo with AWSS AWSS protcol with prn ativan PO Thiamine and Folate LLE pain Per nursing pt complaining of pain and swelling on 10/11 Stat venous doppler -no evidence of DVT Home Plavix re-started Chronic multi-level stenosis c/b radiculopathy Intercostal neuralgia Chronic opioid dependence Home regimen: oxycodone-acetaminophen, topiramate, gabapentin (reports 1800mg BID) Medical Marijuana as well -Post surgical pain management per ortho spine -Will continue holding prescribed dose of gabapentin 900mg BID due to AMS -Denies any significant pain at rest -Has been moving all limbs equally Obstructive CAD s/p FRANCY RCA 2012, stable HTN followed cards 07/2022 for pre-operative risk management, RCRI 0.9% -Plavix resumed post-op -Continue Lisinopril 40mg, Coreg 25mg BID, Amlodipine 10mg -No cardiac symptoms and blood pressure remains stable #Prior provoked DVT/PE left peroneal vein #PVD -completed AC treatment 2020 -DVT ppx: started back on plavix #HLD -Rosuvastatin 20mg #Prediabetes -A1c 6.3% 04/2022 -Hgb A1C 6.6 -SSI for glycemic control #BPH -Continue Tamsulosin 0.4 mg #History of sleep apnea Remote sleep study ~2006, no follow up since; documented noncompliance with CPAP Encourage follow up as OP #GERD -Continue pantoprazole #Anxiety #Depression #Insomnia -Hold home clonazepam given active AWSS w/ prn ativan -Continue home duloxetine -Continue home trazodone Thank you for this consultation. We will follow the patient with you during their hospital stay. You can reach a member of the [facility] Hospitalist Team 08/09 via hospitalist role on [employer] text. Admission and Anticipated Discharge Date Admission Date: October 07, 2022 Subjective States that he is feeling better today. Still having difficulty with movement. Review of Systems Review of Systems: All systems reviewed & are unremarkable except as noted in Subjective Physical Exam Physical Exam: General: Alert Neuro:difficulty moving HEENT: NC/AT, unable to move neck with full ROM CV: RRR Resp: no increased effort of breathing. Abdomen: Soft, nontender, nondistended. Extremities: No edema in lower extremities bilaterally. Results & Data Results & Data Vital Signs (Past 12 Hours) Vital Signs Temp Pulse Pulse Pulse Resp BP Pulse Ox 10/12/22 15:50 36.4 C L 74 19 120/76 97 10/12/22 11:47 36.7 C 69 19 118/74 96 10/12/22 08:00 10/12/22 07:47 36.6 C 64 19 120/73 97 10/12/22 07:23 66 O2 Del Method 10/12/22 15:50 Room Air 08/27/23 11:47 Room Air 10/12/22 08:00 Room Air 10/12/22 07:47 Room Air 10/12/22 07:23 (5) Opioid dependence Complication of substance-induced condition: uncomplicated (7) HTN (hypertension) Hypertension type: primary hypertension Qualified Code(s): I10 - Essential (primary) hypertension
[2022-10-13] MEDS ORDERED: MELATONIN 3 MG TAB PO PRN (01:17)
[2022-10-13] MEDS: traMADol HCL 50 MG TABLET PO PRN (03:23)
[2022-10-13 06:28] LABS: Basophils # (auto) 0.05 K/uL (0.00-0.20); Basophils % (auto) 0.7 %; Eosinophils # (auto) 0.48 K/uL (0.00-0.50); Hematocrit (blood only) 30.6 % (42.0-52.0); Hemoglobin 10.4 g/dl (14.0-18.0); Immature Granulocytes # (auto) 0.23 K/uL (0.01-0.20); Immature Granulocytes % (auto) 3.3 %; Lymphocytes # (auto) 1.65 K/uL (1.20-3.40); Mean Corpuscular Hemoglobin 28.3 pg (25.0-34.0); Mean Corpuscular Volume 83.2 fL (80.0-100.0); Mean Platelet Volume 9.3 fL (9.4-12.4); Monocytes # (auto) 0.83 K/uL (0.11-0.59); Monocytes % (auto) 12.1 %; Neutrophils # (auto) 3.63 K/uL (1.40-6.50); Neutrophils % (auto) 52.9 %; Platelet Count 194 K/uL (130-400); RDW Coefficient of Variation 13.6 % (11.5-14.5); RDW Standard Deviation 41.2 fL (36.4-46.3); Red Blood Count 3.68 M/uL (4.70-6.10); White Blood Count 6.87 K/ul (4.8-10.8)
[2022-10-13 06:47] LABS: BUN Creatinine Ratio 17.1 (10-20); Calcium 8.4 mg/dl (8.6-10.3); Creatinine Clr Calc Pharmacy 100.6 ml/min; Est GFR (African American) 106.8 ml/min; Est GFR (Non-African American) 92.1 ml/min; Potassium 3.4 mmol/L (3.5-5.1)
--- NOTE | 2022-10-13 07:36 | Hospitalist Progress Note ---
Date of Service October 13, 2022 Assessment & Plan (1) Acute respiratory failure with hypoxia: Plan: post-operative (2) Alcohol abuse: (3) Cervical radiculopathy: (4) Intercostal neuralgia: (5) Opioid dependence: (6) CAD (coronary atherosclerotic disease): (7) HTN (hypertension): (8) Depression: (9) Post-operative state: Plan Mr. Nahum Armenta is a 67 year old gentleman with past history notable for multi-lev el spinal stenosis/DJD complicated by radiculopathy, hypertension, HLD, obstructive CAD s/p FRANCY 2012, BPH, chronic polysubstance dependence (etoh, opioids), remote DVT/PE, and prediabetes for whom hospitalist service is consulted for medical management of chronic comorbidites s/p recovery from cervical decompression on 10/07/2022. Acute change in mental status Noted to be less responsive with difficulty in speaking and garbled speech postop Complaint pain all over but otherwise remained hemodynamically stable CT of the head, chest x-ray, EKG and ABG were unremarkable except O2 was low at 68 with normal saturation Received gabapentin 900 mg and oxycodone as well as Flexeril Likely secondary to side effects from medications Continue to hold gabapentin and oxycodone. Flexeril switched to methocarbamol 10/13: today he is oxygenating well on room air and is ambulating well in the hallways. He is back to baseline. Will resume all home meds at this time. Acute hypoxic respiratory failure s/p surgery Low saturations post-op, on 3L -Wean O2 for goal >92%, currently on RA -Incentive spirometry to prevent post-operative atelectasis -Chest x-ray did not show any pulmonary edema -Received 40 mg Lasix to see if there is any improvement of any oxygenation hypoxia has resolved. Chronic Alcohol Dependence Reported last drink ~2 weeks ago given anticipation of procedure No hx of seizure/DTs; evaluated post-operatively, no clear signs of withdrawal at time of eval (normotensive, normal rate) Hold home clonazepam to avoid co-administration of benzo with AWSS AWSS protcol with prn ativan PO Thiamine and Folate continued daily Stop Ativan and restart home clonazepam. LLE pain Per nursing pt complaining of pain and swelling on 10/11 Stat venous doppler -no evidence of DVT Home Plavix re-started Chronic multi-level stenosis c/b radiculopathy Intercostal neuralgia Chronic opioid dependence Home regimen: oxycodone-acetaminophen, topiramate, gabapentin (reports 1800mg BID) Medical Marijuana as well -initially held meds with side effect from polypharmacy post operatively. -resumed as noted above. -patient states he follows with an outpatient pain clinic. Obstructive CAD s/p FRANCY RCA 2012, stable HTN followed cards 07/2022 for pre-operative risk management, RCRI 0.9% -Plavix resumed post-op -Continue Lisinopril 40mg, Coreg 25mg BID, Amlodipine 10mg -No cardiac symptoms and blood pressure remains stable #Prior provoked DVT/PE left peroneal vein #PVD -completed AC treatment 2020 -DVT proph-SCDs #HLD-chronic, stable. -Rosuvastatin 20mg #Prediabetes, chronic, stable, euglycemic. -A1c 6.3% 04/2022 -Hgb A1C 6.6 -SSI for glycemic control -cont outpatient primary care followup. #BPH-chronic, stable. -Continue Tamsulosin 0.4 mg #History of sleep apnea Remote sleep study ~2006, no follow up since; documented noncompliance with CPAP Encourage follow up as OP #GERD -Continue pantoprazole #Anxiety #Depression #Insomnia chronic, stable, cont all home meds He is medically stable for discharge when setup for either rehab or home health. Thank you for this consultation. We will follow the patient with you during their hospital stay. You can reach a member of the [facility] Hospitalist Team 08/09 via hospitalist role on [employer] text. Bridgett Knight DO [facility] Hospitalist Admission and Anticipated Discharge Date Admission Date: October 07, 2022 Subjective Mr. 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 Mr Armenta reports not being able to sleep for the last 4 nights without his home medications These were restarted and he is upset that they were held for so long. He is eager to leave the hospital, and is ok doing that tomorrow as long as he is able to receive his medications He specifically reports heartburn without his stomach medication Daughter is at bedside and assists with the history. Physical Exam Physical Exam: CONSTITUTIONAL: WNWD, vitals as above, generally well-appearing, NAD EYES: normal conjunctivae, no scleral icterus ENT: external ear and nose normal, MMM NECK: trachea midline, posterior lower neck wtih optifoam in place. Surgical incision not visualized. Dressing is c/d/i RESPIRATORY: clear to auscultation bilaterally, no crackles, rales or wheezes, normal respiratory effort CARDIOVASCULAR: regular rate and rhythm, S1 and 2 heard without murmurs, gallops or rubs, no JVD, no peripheral edema CHEST: inspection of chest was normal GASTROINTESTINAL: soft, nontender, ND, no guarding MUSCULOSKELETAL: strength 5/5 throughout, head is normocephalic and atraumatic SKIN: warm and dry NEUROLOGIC: CN 2-12 grossly intact, no sensory deficit, normal cognition, normal speech, no tremor PSYCHIATRIC: alert cooperative and oriented to person, place and time. Euthymic mood, makes good eye contact, language grossly intact, recent and remote memory grossly intact. Results & Data Results & Data Vital Signs (Past 12 Hours) Vital Signs Temp Pulse Pulse Resp BP Pulse Ox O2 Del Method 10/13/22 07:18 64 10/13/22 02:55 36.5 C 62 18 136/76 96 Room Air 10/12/22 23:21 37.1 C 72 16 103/57 L 96 Room Air Laboratory Results Short CBC 10/13/22 Range/Units 05:55 WBC 6.87 (4.8-10.8) K/ul Hgb 10.4 L (14.0-18.0) g/dl Hct 30.6 L (42.0-52.0) % Plt Count 194 (130-400) K/uL BMP 10/13/22 05:55 Sodium 137 Potassium 3.4 L Chloride 107 Carbon Dioxide 21 BUN 14 Creatinine 0.82 Glucose 102 H Calcium 8.4 L Medications Administered Current Inpatient Medications Acetaminophen (Acetaminophen 500 Mg Tab) 1,000 mg PO Q8H PRN PRN Reason: MILD Pain Scale 1,2,3 & Pre PT Stop: 11/08/22 19:16 Last Admin: 10/11/22 12:08 Dose: 1,000 mg Amlodipine Besylate (Amlodipine Besylate 5 Mg Tab) [facility] [place]: 11/07/22 08:59 Last Admin: 10/12/22 09:16 Dose: 10 mg Carvedilol (Carvedilol 25 Mg Tab) 25 mg PO BID [facility] Stop: 11/06/22 20:59 Last Admin: 10/12/22 21:17 Dose: 25 mg Cephalexin HCl (Cephalexin 500 Mg Cap) 500 mg PO QID [facility]; Protocol Stop: 10/13/22 12:59 Last Admin: 10/12/22 21:17 Dose: 500 mg Clonazepam (Clonazepam 1 Mg Tab) 1 mg PO TID [facility] Stop: 11/06/22 20:59 Last Admin: 10/07/22 20:10 Dose: 1 mg Clopidogrel Bisulfate (Clopidogrel Bisulfate 75 Mg Tab) 75 mg PO [facility] Stop: 11/10/22 11:14 Last Admin: 10/12/22 09:17 Dose: 75 mg Dextrose (Dextrose 50% 50 Ml Syringe) 25 - 50 ml IV UD PRN; Protocol PRN Reason: Hypoglycemia Protocol Stop: 11/06/22 20:36 Duloxetine HCl (Duloxetine Hcl 60 Mg Cap) 60 mg PO [facility] Stop: 11/07/22 08:59 Last Admin: 10/12/22 09:17 Dose: 60 mg Folic Acid (Folic Acid 1 Mg Tab) 1 mg PO [facility] Stop: 11/07/22 08:59 Last Admin: 10/12/22 09:17 Dose: 1 mg Gabapentin (Gabapentin 300 Mg Cap) 900 mg PO BID [facility] Stop: 11/06/22 20:59 Last Admin: 10/09/22 08:40 Dose: 900 mg Glucagon (Glucagon For Inj 1 Mg Vial) 1 mg SQ UD PRN; Protocol PRN Reason: Hypoglycemia Protocol Stop: 11/06/22 20:36 Glucose (Glucose 10 Tab/Tube) 4 - 8 tab PO UD PRN; Protocol PRN Reason: Hypoglycemia Treatment Stop: 11/06/22 20:36 Glucose (Glucose 40% Gel 15 Gm Tube) 15 - 30 gm PO UD PRN; Protocol PRN Reason: Hypoglycemia Protocol Stop: 11/06/22 20:36 Hydromorphone HCl (Hydromorphone Inj 0.5 Mg/0.5 Ml Syr) 0.5 mg IV Q3H PRN PRN Reason: SEVERE pain (7,8,9,10) Stop: 10/21/22 17:10 Last Admin: 10/12/22 00:15 Dose: 0.5 mg Promethazine HCl 12.5 mg/ (Sodium Chloride) 50.5 mls @ 202 mls/hr IV Q6H PRN PRN Reason: Nausea &/or Vomiting Stop: 11/08/22 19:16 Insulin Aspart (Insulin Aspart Per Unit Charge) 0 units SC [facility] Stop: 11/06/22 20:59 Last Admin: 10/12/22 20:55 Dose: Not Given Lisinopril (Lisinopril 40 Mg Tab) 40 mg PO QAM [facility] Stop: 11/07/22 08:59 Last Admin: 10/12/22 09:17 Dose: 40 mg Lorazepam (Lorazepam 1 Mg Tab) 2 mg PO UD PRN; Protocol PRN Reason: EtOH Withdrawal AWSS Score 8,9 Stop: 11/06/22 19:41 Lorazepam (Lorazepam 1 Mg Tab) 3 mg PO ONCE PRN; Protocol PRN Reason: EtOH Withdrawal AWSS Score 10 & above Lorazepam (Lorazepam 1 Mg Tab) 1 mg PO UD PRN; Protocol PRN Reason: EtOH Withdrawal AWSS Score 6,7 Stop: 11/06/22 19:41 Melatonin (Melatonin 3 Mg Tab) 3 mg PO HS PRN PRN Reason: Sleep Stop: 11/12/22 01:16 Last Admin: 10/13/22 01:34 Dose: 3 mg Methocarbamol (Methocarbamol 500 Mg Tablet) 500 mg PO TID PRN PRN Reason: Muscle Spasm, neck pain Stop: 11/09/22 16:24 Last Admin: 10/12/22 16:16 Dose: 500 mg Miscellaneous (Carbohydrates For Hypoglycemia ) 15 - 30 gm PO UD PRN PRN Reason: Hypoglycemia Protocol Stop: 11/06/22 20:36 Sennosides (Senna 8.6 Mg Tab) 8.6 mg PO BID PRN PRN Reason: Constipation Stop: 11/06/22 19:03 Last Admin: 10/09/22 08:40 Dose: 8.6 mg Tamsulosin HCl (Tamsulosin Hcl 0.4 Mg Cap) 0.4 mg PO QAM [facility] Stop: 11/07/22 08:59 Last Admin: 10/12/22 09:17 Dose: 0.4 mg Thiamine HCl (Thiamine Hcl 100 Mg Tab) 100 mg PO QAM [facility] Stop: 11/07/22 08:59 Last Admin: 10/12/22 09:16 Dose: 100 mg Topiramate (Topiramate 25 Mg Tab) 25 mg PO BID [facility] Stop: 11/06/22 20:59 Last Admin: 10/12/22 21:17 Dose: 25 mg Tramadol HCl (Tramadol Hcl 50 Mg Tablet) 50 - 100 mg PO Q6 PRN PRN Reason: Pain Stop: 11/09/22 07:59 Last Admin: 10/13/22 03:23 Dose: 100 mg Trazodone HCl (Trazodone Hcl 50 Mg Tab) 75 mg PO HS [facility] Stop: 11/06/22 20:59 Last Admin: 10/08/22 21:13 Dose: 75 mg (5) Opioid dependence Complication of substance-induced condition: uncomplicated (7) HTN (hypertension) Hypertension type: primary hypertension Qualified Code(s): I10 - Essential (primary) hypertension
[2022-10-13] MEDS: carvediloL 25 MG TAB PO SCH ×2 (08:38→20:56)
[2022-10-13] MEDS: FOLIC ACID 1 MG TAB PO SCH (08:38)
[2022-10-13] MEDS: cephALEXin 500 MG CAP PO SCH (08:38)
[2022-10-13] MEDS: CLOPIDOGREL BISULFATE 75 MG TAB PO SCH (08:38)
[2022-10-13] MEDS: DULoxetine HCL 60 MG CAP PO SCH (08:38)
[2022-10-13] MEDS: amLODIPine BESYLATE 5 MG TAB PO SCH (08:38)
[2022-10-13] MEDS: THIAMINE HCL 100 MG TAB PO SCH (08:39)
[2022-10-13] MEDS: TAMSULOSIN HCL 0.4 MG CAP PO SCH (08:39)
[2022-10-13] MEDS: TOPIRAMATE 25 MG TAB PO SCH ×2 (08:39→20:56)
[2022-10-13] MEDS: lisinopril 40 MG TAB PO SCH (09:03)
[2022-10-13] MEDS: INSULIN ASPART PER UNIT CHARGE SC SCH ×4 (09:20→20:52)
[2022-10-13] MEDS: GABAPENTIN 300 MG CAP PO SCH ×2 (10:02→20:57)
--- NOTE | 2022-10-13 11:01 | Orthopedic Progress Note ---
Date of Service October 13, 2022 Subjective . Patient notes that he is having increased pain in his feet due to neuropathy but improved with gabapentin, still was some limited drainage, has been mobilized to the bathroom and Zepeda has been DC'd. Incision site is without erythema or new swelling, there is still some serous drainage but decreased. No new motor findings in the upper or lower extremities. Impression: 6 days status post posterior cervical decompression and fusion. Plan: I talked with the patient about his situation, we will continue with his current medications including the oral antibiotics as a precaution, and he still has serous drainage requiring dressing changes. I did talk with the nursing staff and he can take a shower today. I discussed with the patient that optimally we can get him to a rehab center will he will get better care relative to the surgical site, I will be talking with the insurance company about that today as I think this will be a better option for him for at least a limited amount of time. Review of Systems All systems reviewed & are unremarkable except as noted in HPI & below. Physical Exam . Results & Data Results & Data Laboratory Results . Diagnostic Findings . PG Care Time/CCT Total # of Minutes Spent Total Time Spent with Patient: Total time spent is greater than 50% in coordination of care (as documented) at patient's floor/unit and/or counseling patient: Coding Level of Care Code 94299 Post Operative Follow-Up Diagnoses
[2022-10-13] MEDS: HYDROmorphone INJ 0.5 MG/0.5 ML SYR IV PRN (14:08)
[2022-10-13] MEDS ORDERED: clonazePAM 1 MG TAB PO PRN (16:58)
[2022-10-13] MEDS ORDERED: FAMOTIDINE 20 MG in SYRINGE 3 ML IV ONE (17:00)
[2022-10-13] MEDS ORDERED: CYCLOBENZAPRINE HCL 10 MG TAB PO PRN (17:10)
[2022-10-13] MEDS: ACETAMINOPHEN 500 MG TAB PO PRN (17:12)
[2022-10-13] MEDS: PANTOprazole 40 MG TAB PO SCH (17:21)
[2022-10-13] MEDS: oxyCODONE HCL IR 5 MG TAB (IMMEDIATE RELEASE) PO PRN (19:23)
[2022-10-13] MEDS: traZODone HCL 50 MG TAB PO SCH (20:55)
[2022-10-14] MEDS: oxyCODONE HCL IR 5 MG TAB (IMMEDIATE RELEASE) PO PRN ×2 (02:43→09:11)
[2022-10-14] MEDS: HYDROmorphone INJ 0.5 MG/0.5 ML SYR IV PRN (06:06)
[2022-10-14 07:49] VITALS: PULSE 68
[2022-10-14] MEDS: DULoxetine HCL 60 MG CAP PO SCH (09:06)
[2022-10-14] MEDS: amLODIPine BESYLATE 5 MG TAB PO SCH (09:07)
[2022-10-14] MEDS: FOLIC ACID 1 MG TAB PO SCH (09:07)
[2022-10-14] MEDS: TAMSULOSIN HCL 0.4 MG CAP PO SCH (09:07)
[2022-10-14] MEDS: THIAMINE HCL 100 MG TAB PO SCH (09:07)
[2022-10-14] MEDS: TOPIRAMATE 25 MG TAB PO SCH (09:07)
[2022-10-14] MEDS: CLOPIDOGREL BISULFATE 75 MG TAB PO SCH (09:07)
[2022-10-14] MEDS: PANTOprazole 40 MG TAB PO SCH (09:07)
[2022-10-14] MEDS: GABAPENTIN 300 MG CAP PO SCH (09:07)
[2022-10-14] MEDS: carvediloL 25 MG TAB PO SCH (09:07)
[2022-10-14] MEDS: lisinopril 40 MG TAB PO SCH (09:07)
[2022-10-14] MEDS: INSULIN ASPART PER UNIT CHARGE SC SCH ×2 (09:11→13:12)
--- NOTE | 2022-10-14 10:28 | Orthopedic Progress Note ---
Date of Service October 14, 2022 Subjective Pt seen, notes feeling improved. Less incisional pain and minimal drainage. Improved with gabapentin. Incision with less drainage, motor improved in upper and lower extremities. I/P: discussed with patient as to DC options, opting for DC home with visiting nurse to check on patient. Will have follow-up in one week. Review of Systems All systems reviewed & are unremarkable except as noted in HPI & below. Physical Exam . Results & Data Results & Data Laboratory Results . Diagnostic Findings . PG Care Time/CCT Total # of Minutes Spent Total Time Spent with Patient: Total time spent is greater than 50% in coordination of care (as documented) at patient's floor/unit and/or counseling patient: Coding Level of Care Code 85724 Post Operative Follow-Up Diagnoses
[2022-10-14 11:36] VITALS: TEMP 98.6; O2SAT 99
[2022-10-14 13:53] VITALS: BP 98/58
--- NOTE | 2022-10-14 14:17 | Hospitalist Progress Note ---
Date of Service October 14, 2022 Assessment & Plan (1) Acute respiratory failure with hypoxia: Plan: post-operative (2) Alcohol abuse: (3) Cervical radiculopathy: (4) Intercostal neuralgia: (5) Opioid dependence: (6) CAD (coronary atherosclerotic disease): (7) HTN (hypertension): (8) Depression: (9) Post-operative state: Plan Mr. Nahum Armenta is a 67 year old gentleman with past history notable for multi-lev el spinal stenosis/DJD complicated by radiculopathy, hypertension, HLD, obstructive CAD s/p FRANCY 2012, BPH, chronic polysubstance dependence (etoh, opioids), remote DVT/PE, and prediabetes for whom hospitalist service is consulted for medical management of chronic comorbidites s/p recovery from cervical decompression on 10/07/2022. Acute change in mental status Noted to be less responsive with difficulty in speaking and garbled speech postop Complaint pain all over but otherwise remained hemodynamically stable CT of the head, chest x-ray, EKG and ABG were unremarkable except O2 was low at 68 with normal saturation Received gabapentin 900 mg and oxycodone as well as Flexeril Likely secondary to side effects from medications Continue to hold gabapentin and oxycodone. Flexeril switched to methocarbamol 10/13: today he is oxygenating well on room air and is ambulating well in the hallways. He is back to baseline. Will resume all home meds at this time. 10/14: cleared from medical standpoint to return home Acute hypoxic respiratory failure s/p surgery Low saturations post-op, on 3L -Wean O2 for goal >92%, currently on RA -Incentive spirometry to prevent post-operative atelectasis -Chest x-ray did not show any pulmonary edema -Received 40 mg Lasix to see if there is any improvement of any oxygenation hypoxia has resolved. Oxygenating 99% on room air. Chronic Alcohol Dependence Reported last drink ~2 weeks ago given anticipation of procedure No hx of seizure/DTs; evaluated post-operatively, no clear signs of withdrawal at time of eval (normotensive, normal rate) Hold home clonazepam to avoid co-administration of benzo with AWSS AWSS protcol with prn ativan PO Thiamine and Folate continued daily Stop Ativan and restart home clonazepam. LLE pain Per nursing pt complaining of pain and swelling on 10/11 Stat venous doppler -no evidence of DVT Home Plavix re-started Chronic multi-level stenosis c/b radiculopathy Intercostal neuralgia Chronic opioid dependence Home regimen: oxycodone-acetaminophen, topiramate, gabapentin (reports 1800mg BID) Medical Marijuana as well -initially held meds with side effect from polypharmacy post operatively. -resumed as noted above. -patient states he follows with an outpatient pain clinic. Obstructive CAD s/p FRANCY RCA 2012, stable HTN followed cards 07/2022 for pre-operative risk management, RCRI 0.9% -Plavix resumed post-op -Continue Lisinopril 40mg, Coreg 25mg BID, Amlodipine 10mg -No cardiac symptoms and blood pressure remains stable #Prior provoked DVT/PE left peroneal vein #PVD -completed AC treatment 2020 -DVT proph-SCDs #HLD-chronic, stable. -Rosuvastatin 20mg #Prediabetes, chronic, stable, euglycemic. -A1c 6.3% 04/2022 -Hgb A1C 6.6 -SSI for glycemic control -cont outpatient primary care followup. #BPH-chronic, stable. -Continue Tamsulosin 0.4 mg #History of sleep apnea Remote sleep study ~2006, no follow up since; documented noncompliance with CPAP Encourage follow up as OP #GERD -Continue pantoprazole #Anxiety #Depression #Insomnia chronic, stable, cont all home meds He is medically stable for discharge when setup for either rehab or home health. Thank you for this consultation. We will follow the patient with you during their hospital stay. You can reach a member of the [facility] Hospitalist Team 08/09 via hospitalist role on tiger text. Bridgett Knight DO [facility] Hospitalist Admission and Anticipated Discharge Date Admission Date: October 07, 2022 Subjective Mr. 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 Mr. Villar was able to get some sleep last night and is still having some pain but is preferring to go home. Home health has been ordered. Ortho spine surgeon came into the room during the exam and outlined postoperative restrictions and follow-up for the patient who verbalized understanding with intent to comply. No other issues per patient at this time. Physical Exam Physical Exam: CONSTITUTIONAL: WNWD, vitals as above, generally well-appearing, NAD EYES: normal conjunctivae, no scleral icterus ENT: external ear and nose normal, MMM NECK: trachea midline, posterior lower neck with optifoam in place. Surgical incision not visualized. Dressing is c/d/i RESPIRATORY: normal respiratory effort CARDIOVASCULAR: no peripheral edema, extremities warm and well perfused CHEST: inspection of chest was normal MUSCULOSKELETAL: strength 5/5 throughout, head is normocephalic and atraumatic SKIN: warm and dry NEUROLOGIC: CN 2-12 grossly intact, no sensory deficit, normal cognition, normal speech, no tremor PSYCHIATRIC: alert cooperative and oriented to person, place and time. Euthymic mood, makes good eye contact, language grossly intact, recent and remote memory grossly intact. Results & Data Results & Data Vital Signs (Past 12 Hours) Vital Signs Temp Pulse Pulse Pulse Resp BP BP 10/14/22 13:52 37 C 68 71 19 153/87 H 98/58 L 10/14/22 09:20 10/14/22 11:35 37 C 68 19 153/87 H 10/14/22 07:48 36.8 C 68 19 120/73 10/14/22 07:47 61 10/14/22 03:17 36.4 C L 71 18 98/58 L Pulse Ox O2 Del Method 10/14/22 13:52 99 10/14/22 09:20 Room Air 10/14/22 11:35 99 Room Air 10/14/22 07:48 96 Room Air 10/14/22 07:47 10/14/22 03:17 97 Room Air Medications Administered Current Inpatient Medications Acetaminophen (Acetaminophen 500 Mg Tab) 1,000 mg PO Q8H PRN PRN Reason: MILD Pain Scale 1,2,3 & Pre PT Stop: 11/08/22 19:16 Last Admin: 10/13/22 17:12 Dose: 1,000 mg Amlodipine Besylate (Amlodipine Besylate 5 Mg Tab) 10 mg PO QAM MARIO Stop: 11/07/22 08:59 Last Admin: 10/14/22 09:07 Dose: 10 mg Carvedilol (Carvedilol 25 Mg Tab) 25 mg PO BID [facility] Stop: 11/06/22 20:59 Last Admin: 10/14/22 09:07 Dose: 25 mg Clonazepam (Clonazepam 1 Mg Tab) 1 mg PO TID PRN PRN Reason: anxiety Stop: 11/06/22 20:59 Clopidogrel Bisulfate (Clopidogrel Bisulfate 75 Mg Tab) [facility] Stop: 11/10/22 11:14 Last Admin: 10/14/22 09:07 Dose: 75 mg Cyclobenzaprine HCl (Cyclobenzaprine Hcl 10 Mg Tab) 10 mg PO HS PRN PRN Reason: muscle spasms Stop: 11/12/22 20:59 Last Admin: 10/14/22 03:29 Dose: 10 mg Dextrose (Dextrose 50% 50 Ml Syringe) 25 - 50 ml IV UD PRN; Protocol PRN Reason: Hypoglycemia Protocol Stop: 11/06/22 20:36 Duloxetine HCl (Duloxetine Hcl 60 Mg Cap) 60 mg PO [facility] Stop: 11/07/22 08:59 Last Admin: 10/14/22 09:06 Dose: 60 mg Folic Acid (Folic Acid 1 Mg Tab) 1 mg PO [facility] Stop: 11/07/22 08:59 Last Admin: 10/14/22 09:07 Dose: 1 mg Gabapentin (Gabapentin 300 Mg Cap) 900 mg PO BID [facility] Stop: 11/06/22 20:59 Last Admin: 10/14/22 09:07 Dose: 900 mg Glucagon (Glucagon For Inj 1 Mg Vial) 1 mg SQ UD PRN; Protocol PRN Reason: Hypoglycemia Protocol Stop: 11/06/22 20:36 Glucose (Glucose 10 Tab/Tube) 4 - 8 tab PO UD PRN; Protocol PRN Reason: Hypoglycemia Treatment Stop: 11/06/22 20:36 Glucose (Glucose 40% Gel 15 Gm Tube) 15 - 30 gm PO UD PRN; Protocol PRN Reason: Hypoglycemia Protocol Stop: 11/06/22 20:36 Hydromorphone HCl (Hydromorphone Inj 0.5 Mg/0.5 Ml Syr) 0.5 mg IV Q3H PRN PRN Reason: SEVERE pain (7,8,9,10) Stop: 10/21/22 17:10 Last Admin: 10/14/22 06:06 Dose: 0.5 mg Promethazine HCl 12.5 mg/ (Sodium Chloride) 50.5 mls @ 202 mls/hr IV Q6H PRN PRN Reason: Nausea &/or Vomiting Stop: 11/08/22 19:16 Insulin Aspart (Insulin Aspart Per Unit Charge) 0 units SC ACHS [facility] Stop: 11/06/22 20:59 Last Admin: 10/14/22 13:12 Dose: Not Given Lisinopril (Lisinopril 40 Mg Tab) 40 mg PO QAM [facility] Stop: 11/07/22 08:59 Last Admin: 10/14/22 09:07 Dose: 40 mg Miscellaneous (Carbohydrates For Hypoglycemia ) 15 - 30 gm PO UD PRN PRN Reason: Hypoglycemia Protocol Stop: 11/06/22 20:36 Oxycodone HCl (Oxycodone Hcl Ir 5 Mg Tab (Immediate Release)) 5 - 10 mg PO Q6H PRN PRN Reason: Pain Stop: 10/27/22 16:36 Last Admin: 10/14/22 09:11 Dose: 5 mg Pantoprazole Sodium (Pantoprazole 40 Mg Tab) 40 mg PO DAILY [facility] Stop: 11/12/22 16:44 Last Admin: 10/14/22 09:07 Dose: 40 mg Sennosides (Senna 8.6 Mg Tab) 8.6 mg PO BID PRN PRN Reason: Constipation Stop: 11/06/22 19:03 Last Admin: 10/09/22 08:40 Dose: 8.6 mg Tamsulosin HCl (Tamsulosin Hcl 0.4 Mg Cap) 0.4 mg PO QAM [facility] Stop: 11/07/22 08:59 Last Admin: 10/14/22 09:07 Dose: 0.4 mg Thiamine HCl (Thiamine Hcl 100 Mg Tab) 100 mg PO QAM [facility] Stop: 11/07/22 08:59 Last Admin: 10/14/22 09:07 Dose: 100 mg Topiramate (Topiramate 25 Mg Tab) 25 mg PO BID [facility] Stop: 11/06/22 20:59 Last Admin: 10/14/22 09:07 Dose: 25 mg Trazodone HCl (Trazodone Hcl 50 Mg Tab) 75 mg PO HS [facility] Stop: 11/06/22 20:59 Last Admin: 10/13/22 20:55 Dose: 75 mg (5) Opioid dependence Complication of substance-induced condition: uncomplicated (7) HTN (hypertension) Hypertension type: primary hypertension Qualified Code(s): I10 - Essential (primary) hypertension
== END 2022-10-14 14:49 | disposition home health service (06) | DRG 459 ==
LOC: ASU 05:52 → SUATTDRO 16:43 → 2N 16:43

== ENCOUNTER 2023-06-09 11:24 | Inpatient (IN) ==
--- NOTE | 2023-05-14 10:14 | PAT Medication Instructions ---
Medication Instructions Date of Service May 14, 2023 Home Medications Medication Instructions Recorded ergocalciferol (vitamin D2) 1,250 1,250 mcg PO .COMPLEX #10 caps 09/22/ mcg (50,000 unit) capsule oxycodone-acetaminophen 5 mg-325 1 tab PO Q6H PRN pain #90 tabs 04/19/ mg tablet clopidogrel 75 mg tablet (Plavix) 75 mg PO QAM lisinopril 40 mg tablet 40 mg PO QAM sennosides 8.6 mg tablet (senna) 8.6 mg PO BID PRN tamsulosin 0.4 mg capsule (Flomax) 0.4 mg PO QAM clonazepam 1 mg tablet (Klonopin) 1 mg PO TID duloxetine 60 mg capsule,delayed release (Cymbalta) 60 mg PO QAM trazodone 150 mg tablet 75 mg PO HS rosuvastatin 20 mg tablet (Crestor) 20 mg PO HS amlodipine 10 mg tablet 10 mg PO QAM carvedilol 25 mg tablet 25 mg PO BID gabapentin 600 mg tablet 900 mg PO BID pantoprazole 40 mg tablet,delayed release 40 mg PO QAM topiramate 25 mg tablet 25 mg PO BID medical marijuana 1 dose inhalation UD PRN cyclobenzaprine 10 mg tablet 10 mg PO HS milk thistle 1 cap PO BID ergocalciferol (vitamin D2) 1,250 mcg (50,000 unit) capsule 1,250 mcg PO .COMPLEX oxycodone-acetaminophen 5 mg-325 mg tablet 1 tab PO Q6H PRN ASK your prescriber and surgeon clopidogrel 75 mg tablet (Plavix) 75 mg PO QAM STOP taking 2 weeks before surgery (or as soon as possible if surgery is within 2 weeks) milk thistle 1 cap PO BID DO NOT take the morning of surgery lisinopril 40 mg tablet 40 mg PO QAM sennosides 8.6 mg tablet (senna) 8.6 mg PO BID PRN medical marijuana 1 dose inhalation UD PRN ergocalciferol (vitamin D2) 1,250 mcg (50,000 unit) capsule 1,250 mcg PO .COMPLEX Take morning of surgery With a small sip of water, OTHERWISE NOTHING TO EAT OR DRINK AFTER MIDNIGHT: tamsulosin 0.4 mg capsule (Flomax) 0.4 mg PO QAM clonazepam 1 mg tablet (Klonopin) 1 mg PO TID duloxetine 60 mg capsule,delayed release (Cymbalta) 60 mg PO QAM amlodipine 10 mg tablet 10 mg PO QAM carvedilol 25 mg tablet 25 mg PO BID gabapentin 600 mg tablet 900 mg PO BID pantoprazole 40 mg tablet,delayed release 40 mg PO QAM topiramate 25 mg tablet 25 mg PO BID oxycodone-acetaminophen 5 mg-325 mg tablet 1 tab PO Q6H PRN(if needed) Take evening before surgery sennosides 8.6 mg tablet (senna) 8.6 mg PO BID PRN(if needed) clonazepam 1 mg tablet (Klonopin) 1 mg PO TID trazodone 150 mg tablet 75 mg PO HS rosuvastatin 20 mg tablet (Crestor) 20 mg PO HS carvedilol 25 mg tablet 25 mg PO BID gabapentin 600 mg tablet 900 mg PO BID topiramate 25 mg tablet 25 mg PO BID cyclobenzaprine 10 mg tablet 10 mg PO HS oxycodone-acetaminophen 5 mg-325 mg tablet 1 tab PO Q6H PRN(if needed) Other Notes If you have any questions please call us at [phone] or [phone] or [phone] or [phone]
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
[2023-06-09] MEDS: LR 60ML/HR IV SCH (12:17)
[2023-06-09] MEDS: LR 15ML/HR IV SCH (12:17)
[2023-06-09] MEDS ORDERED: LIDOCAINE 2% 2 ML VIAL/AMP(20MG/ML) INFIL ONE ×2 (12:56→14:35)
[2023-06-09] MEDS ORDERED: fentaNYL citrate PF 100 MCG/2 ML VIAL ONE ×2 (12:56→17:24)
[2023-06-09] MEDS ORDERED: PROPOFOL IV EMULSION 10 MG/ML 20 ML VIAL IV ONE (12:56)
[2023-06-09] MEDS ORDERED: MIDAZOLAM HCL 1 MG/ML 2ML VIAL ONE (12:56)
[2023-06-09] MEDS ORDERED: ROCURONIUM BROMIDE 10 MG/ML 5 ML VIAL IV ONE ×2 (12:56→14:35)
--- NOTE | 2023-06-09 13:03 | History & Physical Bridge Note ---
Date of Service June 09, 2023 History & Physical Bridge Note I have examined the patient, reviewed the History & Physical and in the interval since the performance of the History & Physical I have noted the following changes of clinical significance: no changes noted
[2023-06-09] MEDS ORDERED: fentaNYL citrate PF 100 MCG/2 ML VIAL IV PRN (13:06)
[2023-06-09] MEDS ORDERED: ePHEDrine sulfate 50 MG/ML AMP IV PRN (13:06)
[2023-06-09] MEDS ORDERED: PROMETHAZINE HCL 6.25 MG in SODIUM CHLORIDE 0.9% 50 ML IV PRN (13:06)
[2023-06-09] MEDS ORDERED: ATROPINE SULFATE 0.1 MG/ML 10ML SYR IV PRN (13:06)
[2023-06-09] MEDS ORDERED: ONDANSETRON INJ 2 MG/ML 2 ML VIAL IV PRN ×2 (13:06→18:06)
[2023-06-09] MEDS ORDERED: KETAMINE HCL INJ 50 MG/ML 10 ML VIAL ONE (13:16)
[2023-06-09] MEDS: ceFAZolin 2000MG 2,000 MG/15 ML SYR IV SCH (14:02)
[2023-06-09] MEDS ORDERED: ONDANSETRON INJ 2 MG/ML 2 ML VIAL ONE (14:35)
[2023-06-09] MEDS ORDERED: DEXAMETHASONE SOD INJ 4 MG/ML VIAL ONE (14:35)
[2023-06-09] MEDS ORDERED: SUGAMMADEX SODIUM 200 MG/2 ML VIAL IV ONE (14:36)
[2023-06-09] MEDS: THROMBIN 5000 UNITS KIT ONE (15:12)
[2023-06-09] MEDS: VANCOMYCIN HCL 1000MG/20ML VIAL ONE (15:13)
[2023-06-09] MEDS: GELATIN SPONGE 12-7MM ONE (16:43)
[2023-06-09] MEDS ORDERED: ePHEDrine sulfate 50 MG/ML AMP ONE (16:52)
[2023-06-09] MEDS ORDERED: SODIUM CHLORIDE 0.9% PF INJ 10 ML VIAL ONE (16:52)
--- NOTE | 2023-06-09 17:20 | Fluoroscopy Report ---
FL lumbar spine 2-3V CLINICAL HISTORY: L3-L5 Decompression, Remove L5-S1 hardware possible fusion COMPARISON STUDY: Radiographs 03/13/2023 FLUOROSCOPY TIME: 23.5 seconds FLUOROSCOPY IMAGES: 3 EXPOSURE DOSE: 16.81 mGy FINDINGS: Retractors are noted along with surgical sponge over the soft tissues of the lower lumbar s pine. L5-S1 discectomy redemonstrated. Images demonstrate removal of the L5-S1 hardware. IMPRESSION: Fluoroscopic assistance as above. ACT 112: Negative or not required by law. Electronically signed by: Reggie Talavera M.D. 06/09/2023 5:18 PM
[2023-06-09] MEDS: BUPIVACAINE/EPINEPHRINE 0.5% MPF 1:200,000 30 ML VIAL ONE (17:41)
[2023-06-09] MEDS: ceFAZolin 2000MG 2,000 MG/15 ML SYR IV ONE (17:59)
--- NOTE | 2023-06-09 18:03 | Post Operative Brief Note ---
PG Immediate Post Op with CF Date of Surgery June 09, 2023 Pre & Post Diagnosis Operation Date: 06/09/23 12:55 Pre-Op Diagnosis: Adjacent Setment Disease Lumbar Spine with HX of fusion procedure Post-Op Diagnosis: Adjacent Setment Disease Lumbar Spine with HX of fusion procedure I identified the patient and participated in the time-out.: Yes Procedure Operation Date: 06/09/23 12:55 Actual Procedures p L3-L4, L4-L5 Decompression Revision, L5-S1 Removal of Hardware(Not Applicable) - Anibal Tracy MD Surgeon Anibal Tracy MD Licensed Staff Mft none Estimated Blood Loss 550 Findings Consistent with Post-Op Diagnosis Specimens Specimen Description: None per surgeon Drains Merida Catheter (16Fr merida placed by Jody Healy without difficulty. To be removed at end of case.)
[2023-06-09] MEDS ORDERED: bisacodyL 10 MG SUPP PR PRN (18:06)
[2023-06-09] MEDS ORDERED: MAGNESIUM HYDROXIDE SUSP 30 ML UDC PO PRN (18:06)
[2023-06-09] MEDS ORDERED: ONDANSETRON 4 MG OD TAB PO PRN (18:06)
[2023-06-09] MEDS ORDERED: NALOXONE HCL 0.4 MG/1 ML VIAL/CARP IV PRN (18:06)
[2023-06-09] MEDS ORDERED: ALUMINUM/MAGNESIUM SUSP 30 ML UDC PO PRN (18:06)
[2023-06-09] MEDS ORDERED: PROMETHAZINE HCL 12.5 MG in SODIUM CHLORIDE 0.9% 50 ML IV PRN (18:06)
[2023-06-09] MEDS ORDERED: diphenhydrAMINE Capsule 25 MG CAP PO PRN (18:06)
[2023-06-09] MEDS ORDERED: hydrOXYzine HCl 25 MG TAB PO PRN (18:06)
[2023-06-09] MEDS ORDERED: ACETAMINOPHEN 1,000 MG/100 ML VIAL IV PRN (18:06)
[2023-06-09] MEDS ORDERED: DO NOT ADMINISTER PNEUMOCOCCAL VACCINE PRN (18:06)
[2023-06-09] MEDS ORDERED: DO NOT ADMINISTER FLU VACCINE PRN (18:06)
[2023-06-09] MEDS ORDERED: SOD PHOSPHATE/SOD BIPHOSPHATE ENEMA 132 ML BTL PR PRN (18:06)
[2023-06-09] MEDS ORDERED: ACETAMINOPHEN 500 MG TAB PO PRN (18:06)
[2023-06-09] MEDS ORDERED: LORazepam 0.5 MG in SYRINGE 0.25 ML IV PRN (18:06)
[2023-06-09] MEDS ORDERED: LORazepam 0.5 MG TAB PO PRN (18:06)
[2023-06-09] MEDS ORDERED: FAMOTIDINE 20 MG TAB PO PRN (18:06)
[2023-06-09] MEDS ORDERED: METOCLOPRAMIDE HCL INJ 5 MG/ML 2 ML VIAL IV PRN (18:06)
[2023-06-09] MEDS: HYDROmorphone INJ 2 MG/ML SYR/VIAL IV PRN (18:43)
--- NOTE | 2023-06-09 19:47 | Anesthesiology Progress Note ---
Date of Service June 09, 2023 Anesthesia Post Procedure Vital Signs Vital Signs: Temp Pulse Pulse Resp BP BP Pulse Ox 06/09/23 19:35 97.7 F 66 16 136/80 97 06/09/23 19:25 98.2 F 75 18 123/73 96 06/09/23 19:15 72 14 151/77 H 97 06/09/23 19:05 70 12 117/68 98 06/09/23 18:55 68 13 149/79 H 96 06/09/23 18:45 68 13 148/81 H 95 06/09/23 18:35 71 19 147/76 H 98 06/09/23 18:25 73 17 140/64 95 06/09/23 18:15 71 13 117/79 88 L 06/09/23 18:08 98.2 F 70 16 122/68 95 06/09/23 12:02 06/09/23 11:50 97.7 F 59 L 20 140/75 95 O2 Del Method O2 Flow Rate 06/09/23 19:35 Nasal Cannula 2 06/09/23 19:25 Nasal Cannula 2 06/09/23 19:15 Nasal Cannula 2 06/09/23 19:05 Nasal Cannula 2 06/09/23 18:55 Nasal Cannula 2 06/09/23 18:45 Nasal Cannula 2 06/09/23 18:35 Oxymask 2 06/09/23 18:25 Oxymask 10 06/09/23 18:15 Nasal Cannula 4 06/09/23 18:08 Nasal Cannula 4 06/09/23 12:02 Room Air 06/09/23 11:50 Room Air Pain Intensity Lower Back: Pain Intensity: 5 Transfer of Care Handoff Completed per policy Notes Mental Status: alert / awake / arousable and participated in evaluation Patient Amnestic to Procedure: Yes Nausea / Vomiting: adequately controlled Pain: adequately controlled Airway Patency, RR, SpO2: stable & adequate BP & HR: stable & adequate Hydration State: stable & adequate Anesthetic Complications: no major complications apparent and Pt Satisfied with anesthetic care
[2023-06-09] MEDS ORDERED: metFORMIN HCL 500 MG TAB PO SCH (21:00)
[2023-06-09] MEDS: LACTATED RINGER'S 1,000 ML IV SCH (22:02)
[2023-06-09] MEDS: ceFAZolin 1000MG 1,000 MG/7.5 ML SYR IV SCH (22:03)
[2023-06-09] MEDS: carvediloL 25 MG TAB PO SCH (22:04)
[2023-06-09] MEDS: traZODone HCL 50 MG TAB PO SCH (22:04)
[2023-06-09] MEDS: TOPIRAMATE 25 MG TAB PO SCH (22:04)
[2023-06-09] MEDS: clonazePAM 1 MG TAB PO SCH (22:07)
[2023-06-09] MEDS: GABAPENTIN 300 MG CAP PO SCH (22:07)
[2023-06-09] MEDS: DOCUSATE SODIUM/SENNA 50/8.6MG TAB PO SCH (22:08)
[2023-06-09] MEDS: HYDROmorphone INJ 0.5 MG/0.5 ML SYR IV PRN (23:08)
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
[2023-06-10] MEDS ORDERED: GLUCOSE 10 TAB/TUBE PO PRN (01:16)
[2023-06-10] MEDS ORDERED: GLUCOSE 40% GEL 15 GM TUBE PO PRN (01:16)
[2023-06-10] MEDS ORDERED: CARBOHYDRATES FOR HYPOGLYCEMIA PO PRN (01:16)
[2023-06-10] MEDS ORDERED: DEXTROSE 50% 50 ML SYRINGE IV PRN (01:16)
[2023-06-10] MEDS ORDERED: GLUCAGON FOR INJ 1 MG VIAL SQ PRN (01:16)
[2023-06-10] MEDS: INSULIN ASPART PER UNIT CHARGE SC SCH (01:58)
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
[2023-06-10] MEDS ORDERED: LORazepam 1 MG in SYRINGE 0.5 ML IV PRN (03:52)
[2023-06-10] MEDS: LACTATED RINGER'S 1,000 ML IV ONE (04:23)
[2023-06-10] MEDS: THIAMINE HCL 100 MG in SYRINGE 9 ML IV STA (04:24)
[2023-06-10] MEDS: POLYETHYLENE (MIRALAX) 17 GM PACK PO SCH (05:39)
[2023-06-10] MEDS: oxyCODONE/ACETAMINOPHEN 5mg/325mg TAB PO PRN (07:26)
[2023-06-10] MEDS: MULTIVITAMIN TAB PO SCH (08:22)
[2023-06-10] MEDS: DULoxetine HCL 60 MG CAP PO SCH (08:23)
[2023-06-10] MEDS: TAMSULOSIN HCL 0.4 MG CAP PO SCH (08:23)
[2023-06-10] MEDS: amLODIPine BESYLATE 5 MG TAB PO SCH (08:23)
[2023-06-10] MEDS: LANTUS PER UNIT CHARGE SQ SCH (08:28)
[2023-06-10 08:51] LABS: Basophils # (auto) 0.03 K/uL (0.00-0.20); Basophils % (auto) 0.3 %; Hematocrit (blood only) 32.9 % (42.0-52.0); Hemoglobin 10.3 g/dl (14.0-18.0); Immature Granulocytes # (auto) 0.08 K/uL (0.01-0.20); Immature Granulocytes % (auto) 0.7 %; Lymphocytes # (auto) 0.79 K/uL (1.20-3.40); Mean Corpuscular Hemoglobin 27.7 pg (25.0-34.0); Mean Corpuscular Hgb Conc 31.3 g/dL (32.0-36.0); Mean Corpuscular Volume 88.4 fL (80.0-100.0); Mean Platelet Volume 9.3 fL (9.4-12.4); Monocytes # (auto) 0.94 K/uL (0.11-0.59); Monocytes % (auto) 8.4 %; Neutrophils # (auto) 9.39 K/uL (1.40-6.50); Neutrophils % (auto) 83.6 %; Platelet Count 154 K/uL (130-400); RDW Coefficient of Variation 15.2 % (11.5-14.5); RDW Standard Deviation 48.7 fL (36.4-46.3); Red Blood Count 3.72 M/uL (4.70-6.10); White Blood Count 11.23 K/ul (4.8-10.8)
[2023-06-10 09:43] LABS: Albumin Level 3.7 gm/dl (3.4-5.0); Bilirubin,Total 0.4 mg/dl (0.2-1.0); Calcium 7.8 mg/dl (8.6-10.3); Potassium 4.1 mmol/L (3.5-5.1)
[2023-06-10 09:48] LABS: Albumin Globulin Ratio 1.8 (0.9-2); BUN Creatinine Ratio 14.9 (10-20); Creatinine Clr Calc Pharmacy 93.9 ml/min; Est GFR (African American) 103.5 ml/min; Est GFR (Non-African American) 89.3 ml/min; Globulin 2.1 gm/dl (2.5-4.0); Total Protein 5.8 gm/dl (6.0-8.3)
--- NOTE | 2023-06-10 09:57 | Orthopedic Progress Note ---
Date of Service June 10, 2023 Assessment & Plan (1) Status post lumbar spine operative procedure for decompression of spinal cord: Overall, he is doing quite well today with good pain control to the lumbar spine. He participated well today with physical therapy working on ambulation and range of motion exercises. He can be discharged home later this morning pending formal physical therapy evaluation and recommendations. He will follow- up with Dr. Tracy in 2 weeks for postoperative management. Patient is seen and examined, has some incisional pain but notes some improvement in lower extremities. Subjective . Nahum seen and evaluated this morning resting comfortably in no apparent distress. He notes that his pain is well-controlled today. He does state that he has a little bit of soreness but that is also because he was just evaluated by physical therapy prior to my arrival as well as he did not have a comfortable night's rest. He has been up and out of bed without any significant issues. He participated well with physical therapy today. He denies any other concerns today. Review of Systems All systems reviewed & are unremarkable except as noted in HPI & below. Physical Exam . On physical examination of the lumbar spine, dressings are clean, dry, intact. Grossly intact motor and sensory function to the lower extremities. +2 DP and PT pulses. Less than 2-second capillary refill. Normal sensation. Neurovascular intact. Results & Data Results & Data Laboratory Results . Diagnostic Findings . PG Care Time/CCT Total # of Minutes Spent Total Time Spent with Patient: Total time spent is greater than 50% in coordination of care (as documented) at patient's floor/unit and/or counseling patient: Coding Level of Care Code 72101 Post Operative Follow-Up Diagnoses Status post lumbar spine operative procedure for decompression of spinal cord Z98.890
--- NOTE | 2023-06-10 09:59 | Discharge Summary ---
Date of Service June 10, 2023 Principal Diagnosis Same as "Discharge Diagnosis" noted below under Discharge Instructions. Discharge Exam . On physical examination of the lumbar spine, dressings are clean, dry, intact. Grossly intact motor and sensory function to the lower extremities. +2 DP and PT pulses. Less than 2-second capillary refill. Normal sensation. Neurovascular intact. Discharge Data Consultations 06/09/23 18:11 Consult Hospitalist Routine Procedures Performed Operation Date: 06/09/23 12:55 Actual Procedures s L5-S1 Removal of Hardware(Not Applicable) - Anibal Tracy MD p L3-L4, L4-L5 Decompression Revision,(Not Applicable) - Anibal Tracy MD Ordered Studies 06/09/23 07:00 FL lumbar spine 2-3V Routine Hospital Course (1) Status post lumbar spine operative procedure for decompression of spinal cord: On 06/09/2023 Nahum arrived at [facility] and underwent a L5-S1 removal of hardware as well as an L3 and L4 at L4-L5 decompression revision performed by Dr. Tracy without complication. He had a general anesthetic. Postoperatively, he was transferred to the PACU for immediate postoperative management then transferred to the general orthopedic floor in stable condition. His hospital course was uneventful. On postoperative day #1, his vital signs are stable and his pain is well-controlled. He participated well with physical therapy working on ambulation and range of motion exercises. He was then discharged home in stable condition. He will follow-up with Dr. Tracy in 2 weeks for postoperative management. PG Care Time/CCT Total # of Minutes Spent Total Time Spent with Patient: Total time spent is greater than 50% in coordination of care (as documented) at patient's floor/unit and/or counseling patient: Discharge Plan Discharge Items Patient Disposition: Home - Home Health Services Reason For Visit: SURGERY Discharge Diagnosis: Same Activity: Per Instructions section Non-emergency contact: Surgeon Call non-emergency contact if: your temperature is above 101.5, your wound has increased redness, your wound has increased drainage and your wound pain has increased Follow-up/Referrals: Noy Gaxiola MD [Primary Care Provider] - Diet: Regular Addtl Attending Provider Instructions: Please follow Dr. Tracy Post Operative Instructions that were given in the office upon scheduling surgery. -Dressings will be changed prior to discharge. -Keep Surgical site dry for the next 3 days. -May shower after 3 days with no soaking of the surgical site -May leave surgical site open to air if dry. -Cover the surgical site with a bandage if draining or getting caught on clothes. -Take it easy for the next 2 weeks. (Ex: No Lifting, running, bending, or twisting, etc.). -You will F/u with Dr. Tracy in 2 weeks for postoperative care. -If any questions or concerns in the mean time, Reach out to [facility] at [phone] Pending Studies at Discharge: No Stand-Alone Forms: My [facility] Simpler, Smoking Cessation Medications and DC Order Prescriptions: New oxycodone-acetaminophen [Percocet] 5-325 mg Tablet 1 tab PO Q6H PRN (Reason: pain) Qty: 24 0RF Continued sennosides [senna] 8.6 mg tablet 8.6 mg PO BID PRN (Reason: Constipation) clopidogrel [Plavix] 75 mg tablet 75 mg PO QAM clonazepam [Klonopin] 1 mg tablet 1 mg PO TID trazodone 150 mg tablet 75 mg PO HS tamsulosin [Flomax] 0.4 mg capsule 0.4 mg PO QAM duloxetine [Cymbalta] 60 mg capsule,delayed release(DR/EC) 60 mg PO QAM rosuvastatin [Crestor] 20 mg tablet 20 mg PO HS medical marijuana 1 dose inhalation UD PRN (Reason: pain, anxiety) cyclobenzaprine 10 mg tablet 10 mg PO HS ergocalciferol (vitamin D2) 1,250 mcg (50,000 unit) capsule 1,250 mcg PO .COMPLEX Qty: 10 1RF Rx Instructions: 1,250 mcg orally weekly; take one capsule daily once a week for the next ten weeks carvedilol 25 mg tablet 25 mg PO BID gabapentin 600 mg tablet 900 mg PO BID topiramate 25 mg tablet 25 mg PO BID amlodipine 10 mg tablet 10 mg PO QAM pantoprazole 40 mg tablet,delayed release (DR/EC) 40 mg PO QPM milk thistle 1 cap PO BID metformin 1,000 mg Tablet 1,000 mg PO BID Discontinued oxycodone-acetaminophen 5-325 mg tablet 1 tab PO Q6H PRN (Reason: pain) Qty: 90 0RF Discharge Orders: Discharge Order (Routine); Ordered 06/10/23 Ordered By: Reggie Spivey Admission Data Admit Date/Time: 06/09/23 18:06 Attending Provider: Anibal Tracy Admit Provider: Anibal Tracy Primary Care Provider: Noy Gaxiola Other Providers: Suraj Person; Brittnee Luis; Chantal Rocha I.; Shilpa Li; Elidia Shaw; Blanche Limon; Cassi Erazo; Verna Dunaway; Christo Crystal; Jae Siddiqui; Sterling Gallagher; Bridgett Knight; Ryan Brewer; Mariely Sanchez; Gaby Frank; Francie Daniels; Tano Dominguez; Rosmery Henriquez; Ivan Wood; Evie Cary I.; Aung Becker; Mini Danielle; Stormy Lawler; Dariel Yang; Osman Davis; Antwan Whittington; Judy Celaya; Lakia Roy; Stormy Vicente Other Interventions: Discharge Summary Assessment (RN) Last Done: 06/10/23 14:19
[2023-06-10] MEDS: FOLIC ACID 1 MG TAB PO SCH (11:21)
[2023-06-11] MEDS ORDERED: THIAMINE HCL 100 MG TAB PO SCH (09:00)
--- NOTE | 2023-06-11 16:20 | Operative Report ---
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 Description of Procedure 1. L4-5 posterior revision lumbar decompression (82250) 2. L3-4 posterior revision lumbar decompression, additional level (79198) 3. L5-S1 exploration of arthrodesis (23249) 4. L5-S1 removal of posterior nonsegmental instrumentation (10113) Patient was taken the operating room and after adequate anesthesia was carefully positioned prone on the Jean frame and carefully checked for positioning. After doing so, a preprepped was performed followed by bringing in fluoroscopy where I marked the area of the incision in the lower lumbar spine. Prep and drape was performed, and I began the procedure with a midline incision carried out in the vicinity of the prior incision but centered to a better location and extending up to the L3-4 level. I advanced down through the subcutaneous tissues down onto the remaining spinous processes, and then angling out to locat e the hardware on either side at the L5 and S1 levels and then extending down along the remaining spinous process structures to the lamina at L3-4 and mild to the lateral remaining facet region at L4-5 on either side. Considerable time was then taken to expose the instrumentation at L5 and S1 in the hardware. From here I then was able to clean off the hardware from combination and/or of bone or soft tissue. The instrumentation placed was med Crea, and the instrumentation was then utilized to remove the setscrews along with the rods and birgit fixation pieces. I then explored the fusion mass and was able to distract on the screws, no evidence of pseudoarthrosis was noted, this appeared to be a solid posterolateral arthrodesis. With this noted I then remove the pedicle screws with a great amount of effort, this part of the procedure took twice as long timewise as a did to perform the decompressions. With the screws removed, some Gelfoam was placed in the prior screw holes, some hemostasis was performed. I then moved onto the decompression portion of the procedure. The bilateral laminectomy was performed and also moving along the medial facets on both sides at the L4-5 level. This included the partial medial facetectomy, and then removing the thickened ligamentum flavum extending from L4 down along L5 and the facet region completing a decompression in this area. The remaining ligamentum flavum was removed undercutting the facets on both sides decompressing the exiting L4 and L5 nerve roots. With this decompression completed I then moved to the L3-4 level, or then decompressed the segment in a similar fashion using a left-sided approach to remove the central ligamentum flavum, epidural fat, and undercutting the facets bilaterally completing the decompression at this level. Final inspection revealed no issues, effort was made at hemostasis where available though there was some bony bleeding after removal of the hardware. The operative site was irrigated thoroughly, I then placed vancomycin powder and closed the operative site in layers using 0 Vicryl sutures in 2 layers additional layer of 2-0 Vicryl sutures and anson for the skin. Sterile dressing was applied, the patient tolerated procedure well was taken recovery room in satisfactory condition. I attest to the content of the Intraoperative Record and any orders documented therein. Any exceptions are noted below.
== END 2023-06-10 15:30 | disposition home health service (06) | DRG 517 ==
LOC: ASU 11:24 → 3E 18:06